=== PATIENT | female | born 1945 | race Caucasian/White ===

== ENCOUNTER 2016-05-13 05:18 | Inpatient (IN) | payer OTHER ==
[2016-04-21 08:18] VITALS: BMI 24.0
--- NOTE | 2016-04-21 08:48 | PAT Medication Instructions ---
Service Date Apr 21, 2016. Current Home Medication List Cholecalciferol (Vitamin D3), 1 TAB PO QAM Magnesium Oxide (Magnesium), Unknown Dose Meloxicam (Mobic), 15 MG PO QAM [Eye Promise], 1 CAP PO QAM Medication Instructions For Your Scheduled Surgery - Hold the following medications 7-10 days prior to surgery per surgeon's instructions: Meloxicam (Mobic), 15 MG PO QAM - Hold the following medications the morning of surgery: [Eye Promise], 1 CAP PO QAM Cholecalciferol (Vitamin D3), 1 TAB PO QAM Magnesium Oxide (Magnesium), Unknown Dose *Nothing to eat or drink after midnight* If you have any questions please call us at [phone] or [phone] or [phone]
--- NOTE | 2016-04-21 09:32 | DIAGNOSTIC IMAGING REPORT ---
CHEST PREADMISSION(PA/LAT) CLINICAL HISTORY: Preoperative evaluation. COMPARISON STUDY: No previous studies for comparison. FINDINGS: Lung volumes are normal. Lungs are clear. There is no pneumothorax or pleural effusion. Cardiac size is normal. Mediastinal contours are within normal limits. Pulmonary vascularity is normal. IMPRESSION: No acute cardiopulmonary findings. Electronically signed by: Jian Benitez M.D. 04/21/2016 9:30 AM Dictated Date/Time: 04/21/2016 9:29 AM
[2016-04-21 09:41] LABS: BASO % 0.9 %; BASO ABS # 0.05 K/uL (0-0.2); COMPLETE YES; EOS % 3.5 %; HEMATOCRIT 37.2 % (37-47); IG% 0.2 %; LYMPH % 24.4 %; LYMPH ABS # 1.33 K/uL (1.2-3.4); MEAN CELL VOLUME 84.4 fL (80-100); MEAN CORPUSCULAR HEMOGLOBIN 28.8 pg (25-34); MEAN CORPUSCULAR HGB CONC 34.1 g/dl (32-36); MEAN PLATELET VOLUME 8.7 fL (7.4-10.4); MONO % 7.5 %; NEUT % 63.5 %; PLATELET COUNT 281 K/uL (130-400); RED BLOOD COUNT 4.41 M/uL (4.2-5.4); WHITE BLOOD COUNT 5.45 K/uL (4.8-10.8)
[2016-04-21 09:45] LABS: PARTIAL THROMBOPLASTIN RATIO 0.9; PROTHROMBIN TIME (PATIENT) 10.3 SECONDS (9.0-12.0)
[2016-04-21 09:58] LABS: CALCIUM 8.9 mg/dl (8.5-10.1); CREATININE 0.56 mg/dl (0.60-1.20); POTASSIUM 4.2 mmol/L (3.5-5.1)
--- NOTE | 2016-05-07 09:53 | HISTORY & PHYSICAL EXAMINATION ---
DATE OF ADMISSION: 05/13/2016 CHIEF COMPLAINT: Right hip pain. HISTORY OF PRESENT ILLNESS: A 71-year-old female who has a several-year history of right hip pain and discomfort that has gotten significantly worse over the past 8 months. She describes groin pain with walking. It was pretty manageable until about 8 months ago when it got worse. She has been treated with Mobic which really did not help at all. The more she walks, the more she limps. She has had chiropractic treatments as well as therapy without relief. She would like to have her right hip fixed. Of note, the patient does have a history of chronic back pain but no radicular symptoms. PAST MEDICAL HISTORY: Significant for: 1. Colon cancer, status post resection without recurrence. 2. Spine arthritis. PAST SURGICAL HISTORY: 1. Hysterectomy. 2. Colon/rectum resection. 3. Cholecystectomy. ALLERGIES: SULFA. CURRENT MEDICATIONS: Include meloxicam. SOCIAL HISTORY: A 71-year-old female. Lives by herself. Medical doctor is Dr. Aurelia Solo at [facility]. Does not smoke. FAMILY HISTORY: Noncontributory. REVIEW OF SYSTEMS: Negative for diabetes, neurologic problems, vascular problems or bleeding disorders. No history of DVT or PE. PHYSICAL EXAMINATION: GENERAL: Reveals a healthy, pleasant elderly female. She looks to be in excellent health. HEENT: Benign. NECK: Supple. No lymphadenopathy. LUNGS: Clear to auscultation. HEART: Regular rate and rhythm. ABDOMEN: Soft, nontender, nondistended. EXTREMITIES: Grossly neurovascularly intact except as follows: Examination of the right hip and leg reveals the patient walks with a bit of a limp. Leg lengths clinically are pretty equal. She does have some stiffness with hip motion. She can internally rotate to neutral at best, it causes pain. External rotation 20 degrees. Negative straight leg raise. NEUROLOGIC: She is neurologically intact. X-RAYS: X-rays of the right hip reveal advanced right hip DJD. She had complete loss of her superior joint space. She has flattening of her femoral head. She has cystic change of femoral head and acetabulum. She has pretty advanced disease on her left side as well. ASSESSMENT: A 71-year-old female with a several-year history of bilateral hip pain and discomfort, right side quite a bit worse than left, unresponsive to conservative treatment. She has got advanced hip arthritis. She has got some underlying back problems as well, but I think her hip is probably the major contributing factor of her pain and disability. PLAN: We talked about treatment. She would like to have her hip replaced. We will take her to the operating room and do right total hip replacement. The risks and benefits of this procedure were explained to the patient including but not limited to DVT, PE, , infection, neurological injury, vascular injury, bleeding problem, pain, limited range of motion, stiffness, failure to relieve her symptoms, incomplete relief of symptoms, need for further surgery in the future, fracture, leg length inequality, nerve palsy, dislocation, etc. The patient understands and desires to proceed. Informed consent was obtained. The patient had preoperative workup. Chest x-ray showed no acute disease. EKG was normal. Labs are normal. As far as discharge plans, she is planning to be discharged to home and using [facility]. Her daughter is going to come and stay with her for at least the first week. She has stopped her Mobic 10 days preop.
[2016-05-13] VITALS (19 sets, daily range): BP systolic 107–162; BP diastolic 66–93; PULSE 73–102; TEMP 36.4–36.7; O2SAT 95–100; Ht 162.6 cm; Wt 65.4 kg
[~2016-05-13] VITALS: Ht 162.6 cm; Wt 65.4 kg
[~2016-05-13 05:18] MED LIST: CHOL1000 PO; EYE PROMISE PO; MAGN1TAB41; MELO7.5T5 PO
[2016-05-13] MEDS ORDERED: LACTATED RINGER'S 1000ML 500 ML IV ONE (06:00)
[2016-05-13] MEDS ORDERED: GABAPENTIN 300 MG CAP PO SCH (06:00)
[2016-05-13] MEDS ORDERED: LACTATED RINGER'S 1000ML IV SCH (06:00)
[2016-05-13] MEDS ORDERED: TRANEXAMIC ACID INJ 1,000 MG in SODIUM CHLORIDE 0.9% 100ML 100 ML IV SCH ×2 (06:00→14:30)
[2016-05-13] MEDS ORDERED: FAMOTIDINE 20 MG TAB PO SCH (06:00)
[2016-05-13] MEDS ORDERED: SCOPOLAMINE 1.5 MG TDSY TD SCH (06:00)
[2016-05-13] MEDS ORDERED: METOCLOPRAMIDE HCL 10 MG TAB PO SCH (06:00)
[2016-05-13] MEDS ORDERED: CEFAZOLIN 2000 MG/60 ML D5W 60 ML IV SCH (06:00)
[2016-05-13] MEDS ORDERED: LACTATED RINGER'S 1000ML 1,000 ML IV SCH (06:00)
[2016-05-13] MEDS ORDERED: BUPIVACAINE 0.5 % 5 MG/1 ML PF 10ML VIAL ONE (06:16)
[2016-05-13] MEDS ORDERED: BUPIVACAINE/EPINEPHRINE 0.5% MPF 1:200,000 30 ML VIAL ONE (06:26)
[2016-05-13] MEDS ORDERED: BACITRACIN 50000 UNIT VIAL ONE (06:27)
[2016-05-13] MEDS ORDERED: MIDAZOLAM HCL 1 MG/ML 2ML VIAL ONE ×2 (06:32→06:33)
[2016-05-13] MEDS ORDERED: FENTANYL CITRATE INJ 50 MCG/1 ML 2 ML VIAL ONE (06:33)
[2016-05-13] MEDS ORDERED: MoRPHine SULFATE PF 1 MG/ML 10 ML AMP/VIAL ONE (06:33)
--- NOTE | 2016-05-13 06:51 | History & Physical Bridge Note ---
H&P Re-Evaluation Bridge Note: I have examined the patient, reviewed the History & Physical and in the interval since the performance of the History & Physical I have noted the following changes of clinical significance: No changes noted
[2016-05-13] MEDS ORDERED: ONDANSETRON INJ 2 MG/ML 2 ML VIAL ONE (07:15)
[2016-05-13] MEDS ORDERED: PROPOFOL IV EMULSION 10 MG/ML 20 ML VIAL IV ONE (07:17)
[2016-05-13] MEDS ORDERED: LIDOCAINE HCL 2% 2 ML VIAL (20MG/ML) ONE (07:17)
[2016-05-13] MEDS ORDERED: NALOXONE HCL INJ 0.08 MG in SYRINGE 1.8 ML IV PRN (07:26)
[2016-05-13] MEDS ORDERED: NALOXONE HCL INJ 1 MG in SODIUM CHLORIDE 0.9% 1000ML 1,000 ML IV PRN (07:26)
[2016-05-13] MEDS ORDERED: LACTATED RINGER'S 1000ML 500 ML IV PRN (07:26)
[2016-05-13] MEDS ORDERED: SODIUM CHLORIDE 0.9% 1000ML 1,000 ML IV PRN (07:26)
[2016-05-13] MEDS ORDERED: LORAZEPAM 1 MG TAB PO PRN (07:30)
[2016-05-13] MEDS ORDERED: MoRPHine SULFATE PF 1 MG/ML 10 ML AMP/VIAL EPI PRN (07:30)
[2016-05-13] MEDS ORDERED: NO NARCOTICS OR SEDATIVES SCH (07:30)
[2016-05-13] MEDS ORDERED: ATROPINE SULFATE 0.1 MG/ML 5ML SYR IV PRN (07:30)
[2016-05-13] MEDS ORDERED: MoRPHine SULFATE 2 MG/ML CARP IV PRN (07:30)
[2016-05-13] MEDS ORDERED: ONDANSETRON INJ 2 MG/ML 2 ML VIAL IV PRN ×2 (07:30)
[2016-05-13] MEDS ORDERED: NALBUPHINE HCL INJ 10 MG/ML AMP IV PRN (07:30)
[2016-05-13] MEDS ORDERED: DiphenhydrAMINE HCL 50 MG/ML VIAL IV PRN ×2 (07:30)
[2016-05-13] MEDS ORDERED: PROMETHAZINE HCL INJ 6.25 MG in SODIUM CHLORIDE 0.9% 50ML 50 ML IV PRN (07:30)
[2016-05-13] MEDS ORDERED: MEPERIDINE HCL 25 MG/ML CARP IV PRN (07:30)
[2016-05-13] MEDS ORDERED: PROMETHAZINE HCL INJ 12.5 MG in SODIUM CHLORIDE 0.9% 50ML 50 ML IV PRN (07:30)
[2016-05-13] MEDS ORDERED: EpHEDrine SULFATE INJ 50 MG/ML AMP IV PRN ×2 (07:30)
[2016-05-13] MEDS ORDERED: KETOROLAC TROMETHAMINE 15 MG/ML VIAL IV. PRN (07:30)
[2016-05-13] MEDS ORDERED: LORAZEPAM INJ 0.5 MG in SYRINGE 0.75 ML IV PRN (07:30)
[2016-05-13] MEDS ORDERED: FENTANYL CITRATE INJ 50 MCG/1 ML 2 ML VIAL IV PRN (07:30)
[2016-05-13] MEDS ORDERED: NALOXONE HCL 0.4 MG/1 ML VIAL/CARP IV PRN (07:30)
[2016-05-13] MEDS ORDERED: PHENYLEPHRINE 100MCG/ML 5ML SYR ONE (08:09)
--- NOTE | 2016-05-13 08:24 | [facility] Post Operative Brief Note ---
Immediate Operative Summary Operative Date May 13, 2016. Pre-Operative Diagnosis Right Hip Advanced Degenerative Joint Disease Post-Operative Diagnosis Right Hip Advanced Degenerative Joint Disease Procedure(s) Performed Right Total Hip Arthroplasty--Uncemented Surgeon Dr. Briggs Human Resources Temp Surgeon(s) BIBIANA Fowler Estimated Blood Loss 200 cc Findings Right Hip DJD Fluids (cc crystalloids) 1700 cc Specimens A. Right Femoral Head Drains None Anesthesia Spinal Complication(s) None Disposition Recovery Room / PACU
[2016-05-13] MEDS ORDERED: MAGNESIUM HYDROXIDE SUSP 30 ML UDC PO PRN (08:30)
[2016-05-13] MEDS ORDERED: BISACODYL 10 MG SUPP PR PRN (08:30)
[2016-05-13] MEDS ORDERED: ALUMINUM/MAGNESIUM/SIMETH (MAALOX MAX) 30 ML UDC PO PRN (08:30)
[2016-05-13] MEDS ORDERED: METOCLOPRAMIDE HCL INJ 5 MG/ML 2 ML VIAL IV PRN (08:30)
[2016-05-13] MEDS: PANTOprazole SOD 40 MG TAB PO SCH (09:00)
[2016-05-13] MEDS: MULTIVITAMIN TAB PO SCH (09:00)
[2016-05-13] MEDS ORDERED: EYE PROMISE PO SCH (09:00)
[2016-05-13] MEDS: CHOLECALCIFEROL 400 INTER.UNIT TAB PO SCH (09:00)
--- NOTE | 2016-05-13 09:15 | Anesthesiology Progress Note ---
Anesthesia Post Op Note Date & Time May 13, 2016 at 09:14 Vital Signs Pain Intensity: 0 Vital Signs Past 12 Hours Date Time Temp Pulse Resp B/P Pulse Ox O2 Delivery O2 Flow Rate FiO2 05/13/16 08:26 36.2 89 16 120/65 100 Mask 9 05/13/16 05:50 36.6 98 18 156/93 95 Room Air Notes Mental Status: alert / awake / arousable, participated in evaluation Pt Amnestic to Procedure: Yes Nausea / Vomiting: adequately controlled Pain: adequately controlled Airway Patency, RR, SpO2: stable & adequate BP & HR: stable & adequate Hydration State: stable & adequate Neuraxial Anesthesia: was administered, sensory block is resolving Anesthetic Complications: no major complications apparent
--- NOTE | 2016-05-13 09:27 | DIAGNOSTIC IMAGING REPORT ---
AP PELVIS AND RIGHT HIP 2 VIEWS CLINICAL HISTORY: Degenerative arthritis COMPARISON STUDY: No previous studies for comparison. FINDINGS: There are postsurgical changes of a total right hip arthroplasty. The femoral acetabular components appear well seated. Overlying skin jagjit are visualized. There is no dislocation. There are no fractures. There is air within the soft tissues consistent with recent surgery. There are mild to moderate osteoarthritic changes involve the left hip. IMPRESSION: Postsurgical changes of a total right hip arthroplasty. Electronically signed by: Geovani Payne M.D. 05/13/2016 9:26 AM Dictated Date/Time: 05/13/2016 9:15 AM
[2016-05-13] MEDS: D5W AND 1/2NSS + 20MEQ KCL 1,000 ML IV SCH ×3 (11:12→21:50)
[2016-05-13] MEDS: KETOROLAC TROMETHAMINE 15 MG/ML VIAL IV. SCH ×3 (11:31→23:53)
[2016-05-13] MEDS: FERROUS GLUCONATE 324 MG TAB PO SCH ×3 (12:30→18:05)
[2016-05-13] MEDS: ACETAMINOPHEN 500 MG TAB PO SCH ×2 (12:57→20:29)
[2016-05-13] MEDS: CEFAZOLIN IV 1,000 MG in DEXTROSE 5% 50ML 50 ML IV SCH ×2 (14:07→21:48)
--- NOTE | 2016-05-13 14:27 | PROGRESS NOTE ---
DATE: 05/13/2016 DATE: 05/13/2016. SUBJECTIVE: A 71-year-old white female postop from a right total hip replacement. She is doing pretty well. When she came back to the floor she was very nauseated. She got some nausea medicine and it did not work so she was then given some Phenergan. She is now sleeping. As per the family, the patient is moving both lower extremities. She is pretty sedated currently but breathing comfortable OBJECTIVE: VITAL SIGNS: Temperature 36.4. Vital signs stable. PHYSICAL EXAMINATION: GENERAL: Reveals a pleasant elderly female. She is sitting up in bed and just snoring. Barely arousable. LUNGS: Clear to auscultation. HEART: Regular rate and rhythm. ABDOMEN: Soft, nontender, nondistended. EXTREMITY EXAMINATION: Grossly intact. NEUROLOGICAL EXAMINATION: Deferred due to her sleeping. Leg lengths are equal. She has got brisk refill in her toes. X-RAYS: X-rays of the right hip from recovery room were reviewed. She has right uncemented total hip replacement. Components looked to be in good position. No signs of problems. ASSESSMENT: Postop from a right total hip replacement, doing pretty well. She was quite nauseated, but doing much better now, but now sedated and sleeping since she has been given Phenergan. Her hip is located. PLAN: 1. DVT prophylaxis including thigh high TEDs, SCDs, and aspirin twice a day. 2. PT/OT. Weightbearing as tolerated. Right total hip protocol. 3. Pain control. Pain is currently under control and will limit narcotics at this point due to her sedation. 4. Sedation. We are going to hold all medicines until she wakes up more. 5. Antibiotics x24 hours of IV antibiotics. 6. Disposition: Plan to discharge to home with some home health once adequately recovered.
--- NOTE | 2016-05-13 16:12 | OPERATIVE REPORT ---
DATE OF OPERATION: 05/13/2016 SURGEON: Dr. Renny Briggs. RN SANE: BIBIANA Conway. PREOPERATIVE DIAGNOSIS: Right hip degenerative joint disease. POSTOPERATIVE DIAGNOSIS: Same. PROCEDURE PERFORMED: Right uncemented total hip arthroplasty. COMPLICATIONS: None. ESTIMATED BLOOD LOSS: 200 mL. FLUID REPLACEMENT: 1700 mL crystalloid fluid replacement. ANESTHESIA: Spinal. DRAINS: None. SPECIMENS: Right femoral head sent for pathology. OPERATIVE INDICATIONS: The patient is a 71-year-old female who has had a long history of right hip pain and discomfort. It has gotten significantly worse over the past 6-8 months. It has become more and more debilitated by this. X-rays show advanced right hip DJD. The patient elects to proceed with a total hip arthroplasty. OPERATIVE FINDINGS: Operative findings revealed advanced right hip DJD. She had grade 4 [id number] disease of the femoral head and acetabulum. She had pretty significant osteophytes around the femoral head and femoral neck area as well as the acetabulum. Moderate size joint effusion. Some moderate synovitis. She had multiple cysts, particularly in the acetabulum. OPERATIVE IMPLANTS: Operative implants consisted of: 1. A Biomet G7 size 52-mm acetabular shell. 2. A 6.5 cancellous acetabular screws, 1 at 35 mm length and 1 at 20 mm in length. 3. An apex hole eliminator. 4. Highly cross-linked polyethylene liner with a 52 mm outer diameter and 32 mm inner diameter with a pedroza placed inferior and posterior. 5. DePuy size 13.5 small stature femoral stem. 6. A +5/32 mm metal articular ball. OPERATIVE PROCEDURE: The patient taken to the operating room, identified and placed on the operating table in supine position. All contact areas were appropriately padded. IV antibiotics were provided by anesthesia team. A lateral anesthetic had been implemented in the holding area. Ahumada catheter was placed in sterile fashion. The patient was then placed in the left lateral decubitus position. An axillary roll was placed. Stulberg hip positioner was used for positioning. The right hip and leg were then prepped and draped in usual sterile fashion. A posterolateral approach to the right hip was then performed through a curvilinear incision centered over the greater trochanter. Sharp dissection was carried out through the subcutaneous tissues down to the level of the IT band and gluteal fascia. The IT band and gluteal fascia were then incised longitudinally in line with the skin incision. The underlying greater trochanteric bursa was excised. The piriformis and external rotators were tagged and taken off the posterior aspect of the femur. Great care was taken throughout the procedure to protect the sciatic nerve at all times. Posterior capsulotomy was then performed leaving a large flap for later repair. Hip was internally rotated and dislocated. Femoral neck osteotomy cut was made with the final cut 10 mm above the lesser trochanter. Femoral head was removed and sent for pathology. The femur was retracted anteriorly. Attention was then drawn to the acetabulum. The acetabular labrum was excised. The pulvinar fat was excised. Sequential reaming of the acetabulum was then performed beginning with a size 45 and progressing up to 51. Several cysts in the acetabulum were curetted and filled with bone graft from the reamings. A 52-mm Biomet G7 acetabular shell was then placed in about 40 degrees of lateral opening and 20 degrees of anteversion. It was fixed with two 6.5 cancellous acetabular screws. An anterior osteophyte was removed. A trial liner was placed. Attention was then drawn to the femur. The proximal femur was entered with a cookie cutter followed by canal finder and lateralizing reamer. Sequential reaming of the femur was then performed beginning with a size 9 and progressing up to a 13. We got good chatter at a 13. I then broached beginning with a size 10.5 small broach and progressing up to a 13.5 small broach. We had good metaphyseal fit. Calcar reamer was used to smoothen off the calcar. The hip was then trialed and the +5/32 mm articular ball provided full stability and full extension and external rotation, flexion to 90 degrees, internal rotation to about [address] a pedroza very inferior and posterior to maximize stability in flexion. Attention was then drawn toward placing the permanent components. All trial components were removed. An apex hole eliminator was placed. A highly cross-linked polyethylene liner was placed. The pedroza was placed inferior and posterior. A 13.5 small stature AML femoral stem was placed. We got excellent scratch fit. A +5/32 mm metal articular ball was placed. The hip was then located and once again found to be stable. Attention was then drawn toward closing. The wound was irrigated with copious amounts of pulsatile lavage solution. I did inject locally with 60 mL of 0.5% Marcaine with epinephrine. The posterior capsule and external rotators were repaired through drill holes in the posterior trochanter with #2 Ti-Cron suture. The IT band and gluteal fascia were then closed with #1 PDS suture in running fashion. The subcutaneous tissues were then closed with 2 layers with the deep layer #1 Vicryl sutures, subcutaneous tissue with 2-0 Dexon suture in a buried interrupted fashion. The skin was closed with skin jagjit. The leg was then cleaned and dried and a sterile dressing of Xeroform, 4 x 4, sterile ABD pad and foam tape was applied. The patient then transferred to the recovery room in stable condition. The patient tolerated the procedure well with no complications. All needle and sponge counts were correct at the end of the operation. I attest to the content of the Intraoperative Record and any orders documented therein. Any exceptions are noted below. LOCOD
[2016-05-13] MEDS: CHECK SCOPOLAMINE PATCH PLACEMENT SCH ×2 (16:17→23:53)
[2016-05-13] MEDS: ASPIRIN 325 MG ECTAB PO SCH (20:29)
[2016-05-13] MEDS: DOCUSATE SODIUM 100 MG CAP PO SCH (20:30)
[2016-05-14] VITALS (15 sets, daily range): BP systolic 101–138; BP diastolic 66–72; PULSE 71–107; TEMP 36.9–37.4; O2SAT 91–100
[2016-05-14] MEDS: ACETAMINOPHEN 500 MG TAB PO SCH ×3 (03:24→20:52)
[2016-05-14 05:56] LABS: BASO % 0.2 %; BASO ABS # 0.02 K/uL (0-0.2); COMPLETE YES; EOS % 0.9 %; HEMATOCRIT 32.2 % (37-47); IG% 0.1 %; LYMPH ABS # 0.92 K/uL (1.2-3.4); MEAN CELL VOLUME 86.1 fL (80-100); MEAN CORPUSCULAR HEMOGLOBIN 29.1 pg (25-34); MEAN CORPUSCULAR HGB CONC 33.9 g/dl (32-36); MEAN PLATELET VOLUME 8.8 fL (7.4-10.4); MONO % 10.4 %; NEUT % 79.4 %; PLATELET COUNT 212 K/uL (130-400); RED BLOOD COUNT 3.74 M/uL (4.2-5.4); WHITE BLOOD COUNT 10.25 K/uL (4.8-10.8)
[2016-05-14] MEDS: KETOROLAC TROMETHAMINE 15 MG/ML VIAL IV. SCH ×4 (05:57→23:29)
[2016-05-14] MEDS ORDERED: TRANEXAMIC ACID INJ 1,000 MG in SODIUM CHLORIDE 0.9% 100ML 100 ML IV ONE (06:00)
[2016-05-14 06:21] LABS: BUN/CREATININE RATIO 17.9 (10-20); CALCIUM 7.8 mg/dl (8.5-10.1); CREATININE 0.56 mg/dl (0.60-1.20); POTASSIUM 3.5 mmol/L (3.5-5.1)
[2016-05-14] MEDS ORDERED: DC INTRASPINAL MORPHINE SCH (07:00)
[2016-05-14] MEDS ORDERED: DiphenhydrAMINE HCL 50 MG/ML VIAL IV PRN (07:01)
[2016-05-14] MEDS ORDERED: ONDANSETRON INJ 2 MG/ML 2 ML VIAL IV PRN (07:01)
[2016-05-14] MEDS ORDERED: ZOLPIDEM TARTRATE 5 MG TAB PO PRN (07:01)
[2016-05-14] MEDS ORDERED: MoRPHine SULFATE 2 MG/ML CARP IV PRN (07:01)
[2016-05-14] MEDS ORDERED: TRAMADOL HCL 50 MG TAB PO PRN (07:01)
[2016-05-14] MEDS: CHECK SCOPOLAMINE PATCH PLACEMENT SCH ×3 (07:53→23:29)
[2016-05-14] MEDS: FERROUS GLUCONATE 324 MG TAB PO SCH ×3 (08:30→17:36)
[2016-05-14] MEDS ORDERED: PROM25TA9 PO (08:34)
[2016-05-14] MEDS ORDERED: ASPEC325 PO (08:34)
[2016-05-14] MEDS ORDERED: FRRG PO (08:34)
[2016-05-14] MEDS ORDERED: ULT50X PO (08:34)
[2016-05-14] MEDS ORDERED: ACET-1138 PO (08:34)
--- NOTE | 2016-05-14 08:35 | Discharge Instructions ---
Discharge Instructions Date of Service May 14, 2016. Admission Reason for Admission: Right Hip Pain, Degenerative Joint Disease Discharge Discharge Diagnosis / Problem: Right Hip Replacement Discharge Goals Goal(s): Decrease discomfort, Improve function, Increase independence, Improve disease control, Therapeutic intervention Activity Recommendations Activity Limitations: per Instructions/Follow-up section (Total Hip Precautions ) Weightbearing Status: Right weightbearing . Instructions / Follow-Up Instructions / Follow-Up ACTIVITY RECOMMENDATIONS: Physical Therapy: * Aggressive physical therapy is not usually needed. You will learn to take care of yourself safely and walk. * Follow the "Hip Precautions Instructions." * In some cases, the social work job titles at the hospital will arrange to have a therapist come to your house for the first couple of weeks to help you learn these skills. * You need to practice on your own or with the help of a family member as needed. * When you learn these skills, most of the therapy can be done on your own. Home Exercise: * You were shown a series of exercises in the hospital. Do these exercises three to four times each day including the exercises you were shown in physical therapy. Walking: * Get up and walk several times each day. For the first four weeks, try not to stand or walk for more than one hour at a time. If you do stand or walk for more than one hour, you will not hurt anything, but your leg will likely swell. * As you feel comfortable, you may change from the walker or crutches to a cane and then to independent walking. MEDICATIONS: New Medicine: * You will likely be taking one or more of these medicines: 1. Oxycodone - Take, as directed, when you need it, every four to six hours to control your pain. 2. Iron Sulfate - Take three times each day for the month after surgery to help you replace the blood lost during surgery. 3. Aspirin - Thins your blood to lessen the chance of forming a blood clot. * The most common side effects of pain medicine and iron are nausea and constipation. If nausea or constipation is too much of a problem or if you have any questions about your new medicines or doses, call [facility] at . We will try to help you manage these issues. VERY IMPORTANT TO READ AND REVIEW" Pain: * The immediate post-operative period after hip replacement surgery is often quite painful. * You are given a prescription for pain medicine. You should take it, as directed, when you need it, especially before physical therapy and before going to bed. Pain that interferes with sleep is very common and can last several months. * You will likely need pain medicine for the first two to four weeks. It will not stop all of the pain. The pain will lessen and as you feel better, you may change to milder pain medicine such as Tylenol. * The most common side effects of pain medicine are nausea and constipation, so don't take more than you need. SPECIAL CARE INSTRUCTIONS: TEDs/Elastic Stockings: * The white elastic stockings help limit swelling and prevent blood clots from forming in your legs. The more you wear them, the more they work. * Wear them for six weeks. Prevention of Infection: * Take antibiotics one hour before any dental cleaning, dental work, urological procedure, gastrointestinal procedure or any invasive surgery in order to prevent your new joint from getting infected. * You may get the antibiotics from the doctor performing the procedure or you may call our office at before and we will call in a prescription to the pharmacy of your choice. Things to Watch For: * Drainage from the incision site that occurs more than one week after your surgery. * Severely increased leg pain or swelling. * Increased redness at the incision site. * Fever above 102 degrees Fahrenheit. * Unusual chest pain or shortness of breath. * Unusual pain or burning with urination. Call [facility] at with any of the above problems or if you have any questions about your medicines or recovery. FOLLOW UP VISIT: Make an appointment to see your doctor for approximately two weeks after surgery for a progress check and staple removal by calling the office at . Current Hospital Diet Patient's current hospital diet: Regular Diet Discharge Diet Recommended Diet: Regular Diet Procedures Procedures Performed: Right Total Hip Arthroplasty--Uncemented Pending Studies Studies pending at discharge: no Medical Emergencies . Who to Call and When: Medical Emergencies: If at any time you feel your situation is an emergency, please call [phone] immediately. . Non-Emergent Contact Non-Emergency issues call your: Surgeon . "Provider Documentation" section prepared by Renny Briggs. VTE Core Measure Inpt VTE Proph given/why not?: Other Anticoagulation, T.E.D. Stockings, SCD's
--- NOTE | 2016-05-14 08:35 | Anesthesiology Progress Note ---
Anesthesia Post Op Note Date & Time May 14, 2016 at 08:35 Vital Signs Pain Intensity: 0.0 Vital Signs Past 12 Hours Date Time Temp Pulse Resp B/P Pulse Ox O2 Delivery O2 Flow Rate FiO2 05/14/16 07:59 36.9 71 20 101/66 91 Room Air 05/14/16 07:45 92 Room Air 05/14/16 07:02 16 97 05/14/16 06:00 16 96 05/14/16 04:59 16 98 05/14/16 04:01 18 100 05/14/16 03:30 36.9 73 16 118/71 100 Nasal Cannula 2.0 05/14/16 02:55 18 100 05/14/16 01:56 16 100 05/14/16 00:58 16 98 05/14/16 00:01 Nasal Cannula 2.0 05/14/16 00:01 16 99 05/13/16 23:40 36.6 73 18 107/66 100 Nasal Cannula 3.0 05/13/16 23:00 16 99 05/13/16 23:00 16 98 Nasal Cannula 2.0 05/13/16 22:00 16 99 Nasal Cannula 2.0 05/13/16 21:00 18 98 Nasal Cannula 2.0 Notes Mental Status: alert / awake / arousable, participated in evaluation Pt Amnestic to Procedure: Yes Nausea / Vomiting: adequately controlled Pain: adequately controlled Airway Patency, RR, SpO2: stable & adequate BP & HR: stable & adequate Hydration State: stable & adequate Neuraxial Anesthesia: sensory block resolved Anesthetic Complications: no major complications apparent
[2016-05-14] MEDS: MULTIVITAMIN TAB PO SCH (08:42)
[2016-05-14] MEDS: ASPIRIN 325 MG ECTAB PO SCH ×2 (08:42→20:53)
[2016-05-14] MEDS: CHOLECALCIFEROL 400 INTER.UNIT TAB PO SCH (08:42)
[2016-05-14] MEDS: PANTOprazole SOD 40 MG TAB PO SCH (08:42)
[2016-05-14] MEDS: DOCUSATE SODIUM 100 MG CAP PO SCH ×2 (08:42→20:53)
--- NOTE | 2016-05-14 12:19 | PROGRESS NOTE ---
DATE: 05/14/2016 SUBJECTIVE: 71-year-old female postop day 1 from right total hip replacement. She is doing well. The nausea has improved. She has no pain when she is sitting, just when walking. No chest pain or shortness of breath. Not feeling dizzy or lightheaded. OBJECTIVE: VITAL SIGNS: Temperature 36.9. Vital signs stable. PHYSICAL EXAMINATION: GENERAL: Reveals a healthy, pleasant middle-aged female. She is sitting up in her bedside chair and looks comfortable. LUNGS: Clear to auscultation. HEART: Regular rate and rhythm. ABDOMEN: Soft, nontender, nondistended. EXTREMITIES: Grossly neurovascularly intact except as follows. Examination of the right hip and leg reveals the dressing to be clean, dry and intact. Hip is located. Leg lengths are equal. She can dorsiflex and plantarflex her foot appropriately. She is neurologically intact. LABORATORY DATA: Hemoglobin 10.9, hematocrit 32.2. Electrolytes are stable. ASSESSMENT: 71-year-old female postop day 1 from right total hip replacement, doing well. Her nausea has resolved. Her pain is controlled reasonably well. PLAN: 1. DVT prophylaxis including thigh-high TEDs, SCDs, and aspirin twice a day. 2. PT/OT. Weightbearing as tolerated. Right total hip protocol. 3. Pain control. Doing well with current pain regimen. 4. Disposition: She is planning to be discharged to home with some home health once adequately recovered. Her daughter is going to stay with her.
[2016-05-15] MEDS: KETOROLAC TROMETHAMINE 15 MG/ML VIAL IV. SCH (04:58)
[2016-05-15] MEDS: ACETAMINOPHEN 500 MG TAB PO SCH (04:58)
[2016-05-15 06:23] VITALS: BP 145/77; PULSE 91; TEMP 37.1; O2SAT 92
--- NOTE | 2016-05-15 07:37 | PROGRESS NOTE ---
DATE: 05/15/2016 DATE: 05/15/2016. SUBJECTIVE: A 71-year-old female postop day 2 from right total hip replacement. She is doing well. Nausea is resolved. No chest pain or shortness of breath. Pain is improved. OBJECTIVE: VITAL SIGNS: Temperature 37.1. Vital signs stable. PHYSICAL EXAMINATION: GENERAL: Reveals a healthy, pleasant, middle-aged male. He is sitting up in her bed eating breakfast and looks comfortable. LUNGS: Clear to auscultation. HEART: Has regular rate and rhythm. ABDOMEN: Soft, nontender, nondistended. EXTREMITY EXAMINATION: Grossly neurovascularly intact except as follows: Examination of the right hip and leg reveals the leg to be well aligned. Hip is located. Leg lengths were equal. The wounds clean, dry and intact. Thigh is soft and supple. No significant drainage. Neurologically intact. ASSESSMENT: A 71-year-old female postop day 2 from right total hip replacement, doing well. Pain is controlled. Hip is located. She is neurologically intact. PLAN: 1. DVT prophylaxis including thigh-high TEDs, SCDs, and aspirin twice a day. 2. PT/OT. Weightbearing as tolerated. Right total hip protocol. 3. Pain control. Doing well with current pain regimen. Nausea is resolved. 4. Disposition: Plan to discharge to home with some home health later today.
[2016-05-15] MEDS: DOCUSATE SODIUM 100 MG CAP PO SCH (07:49)
[2016-05-15] MEDS: FERROUS GLUCONATE 324 MG TAB PO SCH (07:49)
[2016-05-15] MEDS: ASPIRIN 325 MG ECTAB PO SCH (07:50)
[2016-05-15] MEDS: PANTOprazole SOD 40 MG TAB PO SCH (07:51)
[2016-05-15] MEDS: MULTIVITAMIN TAB PO SCH (07:51)
[2016-05-15] MEDS: CHOLECALCIFEROL 400 INTER.UNIT TAB PO SCH (07:51)
[2016-05-15 09:46] VITALS: BP 145/77; PULSE 91; TEMP 37.1; O2SAT 92
--- NOTE | 2016-05-21 15:53 | DISCHARGE SUMMARY ---
ADMITTING PHYSICIAN AND SURGEON: Dr. Briggs. ADMITTING DIAGNOSIS: Right hip degenerative joint disease. SURGERY PERFORMED: Right total hip arthroplasty. SECONDARY DIAGNOSES: Include colon cancer and spinal arthritis. CONSULTS: None obtained. HISTORY AND PHYSICAL EXAMINATION: Well documented in the patient's chart. HOSPITAL COURSE: The patient was admitted on 05/13/2016 and underwent total hip arthroplasty. She tolerated the procedure well. There were no complications. She was transferred to the PACU postoperatively and later to the orthopedic floor for further care. She was given Ancef for antibiotic prophylaxis and GLO stockings, SCDs and aspirin for DVT prophylaxis. Hemoglobin, hematocrit and vital signs were monitored during her hospital stay and remained stable. She developed some mild postoperative anemia, did not require any blood transfusions. There were no complications. By postoperative day #2, she was tolerating a general diet, pain was controlled with oral pain medicine. She was participating in physical therapy and had no signs or symptoms of deep vein thrombosis. On postop day #2, she was discharged home and set up with home health services. She was given printed discharge instructions including new prescriptions for extra strength Tylenol, aspirin 325 mg b.i.d., iron supplement, Phenergan and tramadol. She will continue her home medications, continue physical therapy, weightbearing as tolerated, GLO stockings, total hip precautions and follow up in 10-12 days or sooner if there are problems or concerns.
== END 2016-05-15 10:44 | disposition home health service (06) | DRG 470 ==
LOC: ENRESERVDT → ENRESERVTM → C.ACU 05:18 → C.3E 06:40
PROVIDERS: ADMIT Orthopaedic Surgery Sports Medicine; ATTEND Orthopaedic Surgery Sports Medicine
PROC: 0SR902A Replacement of Right Hip Joint with Metal on Polyethylene Synthetic Substitute, Uncemented, Open Approach (ICD-10-PCS; principal; 2016-05-13 07:00)
DX: M16.0 Bilateral primary osteoarthritis of hip (principal); M25.451 Effusion, right hip; M65.9 Synovitis and tenosynovitis, unspecified; R11.0 Nausea; G89.29 Other chronic pain; M54.9 Dorsalgia, unspecified; M46.90 Unspecified inflammatory spondylopathy, site unspecified; Z79.1 Long term (current) use of non-steroidal anti-inflammatories (NSAID); Z79.899 Other long term (current) drug therapy

== ENCOUNTER → 2017-03-06 | Outpatient (CLI) | payer OTHER ==
[~2017-03-06] MED LIST changes: +ACET-1138 PO; +ASPEC325 PO; +FRRG PO; +ULT50X PO
--- NOTE | 2017-03-10 13:37 | MAMMOGRAPHY REPORT ---
BILATERAL DIGITAL SCREENING MAMMOGRAM WITH CAD: 03/06/2017 CLINICAL HISTORY: Routine screening. Patient has no complaints. TECHNIQUE: Current study was also evaluated with a Computer Aided Detection (CAD) system. Bilateral CC and MLO views were obtained. COMPARISON: Comparison is made to exams dated: 02/21/2014 mammogram, 12/06/2012 mammogram, and 012 mammogram - [facility]. BREAST COMPOSITION: There are scattered areas of fibroglandular density in both breasts. FINDINGS: No suspicious masses, calcifications, or areas of architectural distortion are noted in ei ther breast. There has been no significant interval change compared to prior exams. Scattered bilater al benign-appearing calcifications are not significantly changed. IMPRESSION: ACR BI-RADS CATEGORY 2: BENIGN There is no mammographic evidence of malignancy. A 1 year screening mammogram is recommended. The pa tient will receive written notification of the results. Approximately 10% of breast cancers are not detected with mammography. A negative mammographic report should not delay biopsy if a clinically suggestive mass is present. Briana Elena M.D. ah/:03/06/2017 16:10:53 Manager Trading: Shea Moise RT(R)(M), [facility] letter sent: Normal 1/2 BI-RADS Code: ACR BI-RADS Category 2: Benign
== END | disposition home or self-care (01) ==
LOC: C.MAMM 15:09
PROVIDERS: ATTEND Family Medicine
DX: Z12.31 Encounter for screening mammogram for malignant neoplasm of breast (principal)

== ENCOUNTER 2023-08-18 06:43 | Observation (INO) ==
--- NOTE | 2023-07-14 16:13 | PAT Medication Instructions ---
Medication Instructions Date of Service July 14, 2023 Home Medications alendronate 70 mg tablet (Fosamax) 70 mg PO WK amoxicillin 500 mg tablet 2,000 mg PO UD PRN ergocalciferol (vitamin D2) 50,000 unit tablet 50,000 unit PO WK magnesium 1 tab PO QAM meloxicam 15 mg tablet 15 mg PO QAM pqybfwcy-lal-ysdoef 5 mg-zeaxanth 1 mg-bilberry 7.5 mg-herbal capsule (Macular Health Formula) 1 cap PO QAM Continue as directed amoxicillin 500 mg tablet 2,000 mg PO UD PRN(if needed) ASK your surgeon for instructions meloxicam 15 mg tablet 15 mg PO QAM STOP taking 2 weeks before surgery (or as soon as possible if surgery is within 2 weeks) ejbrgszf-gbh-hsyxlc 5 mg-zeaxanth 1 mg-bilberry 7.5 mg-herbal capsule (Macular Health Formula) 1 cap PO QAM DO NOT take the morning of surgery alendronate 70 mg tablet (Fosamax) 70 mg PO WK ergocalciferol (vitamin D2) 50,000 unit tablet 50,000 unit PO WK magnesium 1 tab PO QAM Other Notes NOTHING TO EAT OR DRINK AFTER MIDNIGHT. If you have any questions please call us at [phone] or [phone] or [phone] or [phone]
--- NOTE | 2023-07-27 12:21 | Anesthesiology Consultation ---
Date of Service July 27, 2023 Assessment & Plan (1) Encounter for pre-operative examination: Chart Review Chart Review: Acceptable Risk for Surgery and Patient seen in Pre Admission Testing PONV - significant- even with 2017 TSH done under [facility] - Patient is NOT an ideal OPJ candidate (currently 23 hour obs) Per PAT appt on 07/27/23, no recent illness/disease exposures, illness related symptoms, or recent illness/disease positive tests. Will leave to surgeon's discretion if preop Covid testing needed Right HOPE 05/13/16= Done under [facility] at L3-4 with 1 attempt Teaching & Discussion Pre-Anesthesia Teaching/Discussion Notes: Instructed NPO after midnight before surgery,except medications with 15 cc of water. Medication instructions provided according to the PAT guidelines. History Surgery Operation Date: 08/18/23 10:55 Proposed Procedures p Left Total Hip Arthroplasty - Renny Briggs MD Height/Weight Height: 5 ft 5 in Weight: 58.4 kg Allergies Allergy/AdvReac Type Severity Reaction Status Date / Time Sulfa (Sulfonamide Allergy Intermediate HIVES Verified 07/10/23 09:32 Antibiotics) Medications Home Medications Medication Instructions Recorded Confirmed Last Taken alendronate 70 mg tablet (Fosamax) 70 mg PO WK 07/10/23 07/10/23 Unknown amoxicillin 500 mg tablet 2,000 mg PO UD PRN prior to dental 07/10/23 07/10/23 Unknown procedures ergocalciferol (vitamin D2) 50,000 50,000 unit PO WK 07/10/23 07/10/23 Unknown unit tablet magnesium 1 tab PO QAM 07/10/23 07/10/23 Unknown meloxicam 15 mg tablet 15 mg PO QAM 07/10/23 07/10/23 Unknown cogpoljl-xsr-oemwpg 5 mg-zeaxanth 1 cap PO QAM 07/10/23 07/10/23 Unknown 1 mg-bilberry 7.5 mg-herbal capsule (Macular Health Formula) Past Medical History Medical History History of colorectal cancer diagnosed 1997--s/p partial colon resection, chemo/radiation History of COVID-2020--mild symptoms, no symptoms now History of postoperative nausea and vomiting Osteoarthritis Bilateral knees, left hip Exercise / Class Metabolic Activity III < 4 Walking/Shop/Light housework (one flight of stairs- minimal SOB, no chest pain ) Past Family History Family History Other No family history of adverse response to anesthesia Past Surgical History Surgical History History of benign breast biopsy History of bilateral cataract extraction History of cholecystectomy History of colon resection 1997 History of colonoscopy History of tooth extraction all teeth removed History of total hysterectomy with bilateral salpingo-oophorectomy (BSO) History of total right hip replacement Past Anesthesia History No Hx of Anesthesia Complications (with exception to PONV ) and No Family Hx of Anesthesia Complications History of PONV No Hx of Motion Sickness and History of PONV ( significant- had PONV even with most recent surgery right HOPE (2017) ) Social History Smoking Status: Never smoker Do You Dip or Chew Tobacco: No Hx Alcohol Use: Yes Alcohol type: wine alcohol intake frequency: a few times a month Hx Substance Use: No substance use type: does not use Review of Systems Patient denies chest pain, shortness of breath, dyspnea on exertion, reflux, cough, wheezing, palpitations. No hx of seizures, stroke, [place], apnea/snoring. No hx of blood clots or blood transfusions Physical Exam Vital Signs VITALS BP 154/76 P 77 TEMP 98.0 SP02 96% RESP 16 Constitutional no acute distress ENMT Mouth: + small oral opening; no TMJ clicking Thyromental Distance: < 3.5 Finger Breadths (3.0) Mallampati Class: III Full dentures on top and bottom Neck + limited neck extension (mild) Respiratory normal respiratory effort; no respiratory distress Auscultation: lungs clear to auscultation bilaterally; no wheezes Cardiovascular Rate/Rhythm: regular rate and regular rhythm Heart Sounds: no murmur Vessels: no carotid bruit Musculoskeletal Spine: no pain with cervical ROM Extremities: extremities normal to inspection Psychiatric Orientation: alert Lab Results Anesthesia Preop Results Results Anesthesia Widget: WBC 6.84 K/ul (4.8-10.8) 07/27/23 Hgb 13.0 g/dl (12.0-16.0) 07/27/23 Hct 40.0 % (37.0-47.0) 07/27/23 Plt 301 K/uL (130-400) 07/27/23 Na 140 mmol/L (136-145) 07/27/23 K 5.1 mmol/L (3.5-5.1) 07/27/23 Cl 103 mmol/L (98-107) 07/27/23 CO2 30 mmol/L (21-32) 07/27/23 BUN 28 mg/dl (6-23) H 07/27/23 Creat 0.57 mg/dl (0.6-1.2) L 07/27/23 Glucose Level 133 mg/dl (70-99(Fasting)) H 07/27/23 PT 10.4 Seconds (9.0-12.0) 07/27/23 PTT 24 Seconds (21-31) 07/27/23 INR 1.0 (0.9-1.1) 07/27/23 Blood Type B Positive 07/27/23 Antibody Screen NEGATIVE 07/27/23 Testing Electrocardiogram Date: 07/27/23 Findings: + NSR @ (70bpm) Normal EKG per cardio Chest X-Ray Date: 07/27/23 Findings: + NAD and + cardiomegaly FINDINGS: No lines and tubes are seen. Cardiomegaly is noted. The aortic arch is calcified. The lungs are clear. No evidence of pleural effusion or pneumothorax. IMPRESSION: No acute chest disease. Cardiomegaly is noted.
--- NOTE | 2023-08-14 17:43 | History & Physical Report ---
Date of Service August 14, 2023 Assessment & Plan (1) Arthritis of left hip: 78-year-old female with advanced left hip as well as bilateral knee arthritis limiting her activities. Tempora response to injection. She like to proceed with definitive treatment. Discussed treatment options. Based on her x-rays her exam and all findings I think we best to start by fixing her left hip has got severe disease there and sometimes by fixing that we can help her knee problems. In addition, it is easier to to treat the knees conservatively. After extensive discussion regarding proceed with a left hip replacement. The risks Mente this procedure explained the patient include but not limited to DVT PE infection neurological and vascular bleeding palm pain limb range of motion sepsis fairly her symptoms excetra. Patient understands and desires to proceed. Informed consent was obtained. She is planned to be discharged home using [facility]. We will plan on DVT prophylaxis including thigh-high teds, SCDs, aspirin twice a day. (2) Degenerative arthritis of knee, bilateral: History of Present Illness Chief Complaint: . Left hip pain and bilateral knee pain. Primary Care Provider: Aurelia Solo DO . Patient is an 78-year-old female who is quite active who presents for referral treatment of her multiple orthopedic joint pains. She is status post a right total hip replacement done in 2017. She has done well from this. Over the past several years she has developed pain discomfort in both knees as well as her left hip buttock and groin area. She been followed by Dr. Mcgregor with injections and medical management. This become less successful over time. Describes knee pain left hip pain and limited walking ability. She is a preferred definitive treatment. Allergies Allergy/AdvReac Type Severity Reaction Status Date / Time Sulfa (Sulfonamide Allergy Intermediate HIVES Verified 07/10/23 09:32 Antibiotics) Home Medications Medication Instructions Recorded Confirmed Type alendronate 70 mg tablet (Fosamax) 70 mg PO WK 07/10/23 07/10/23 History amoxicillin 500 mg tablet 2,000 mg PO UD PRN prior to dental 07/10/23 07/10/23 History procedures ergocalciferol (vitamin D2) 50,000 50,000 unit PO WK 07/10/23 07/10/23 History unit tablet magnesium 1 tab PO QAM 07/10/23 07/10/23 History meloxicam 15 mg tablet 15 mg PO QAM 07/10/23 07/10/23 History ipcvvsbt-ldc-vkaxyl 5 mg-zeaxanth 1 cap PO QAM 07/10/23 07/10/23 History 1 mg-bilberry 7.5 mg-herbal capsule (Macular Health Formula) Wheeled Walker #1 ea 08/11/23 Rx Past Med/Surg History Problem List Encounter for pre-operative examination Degenerative arthritis of knee, bilateral Arthritis of left hip Medical History Osteoarthritis Bilateral knees, left hip History of colorectal cancer diagnosed 1997--s/p partial colon resection, chemo/radiation History of COVID-2020--mild symptoms, no symptoms now History of postoperative nausea and vomiting Surgical History History of benign breast biopsy History of total hysterectomy with bilateral salpingo-oophorectomy (BSO) History of total right hip replacement History of colonoscopy History of cholecystectomy History of colon resection 1997 History of tooth extraction all teeth removed History of bilateral cataract extraction Family History Other No family history of adverse response to anesthesia Social History Smoking Status: Never smoker Second Hand Exposure: No; Do You Dip or Chew Tobacco: No; Hx Alcohol Use: Yes Alcohol type: wine Hx Substance Use: No Preferred Language: Frisian Communication Ability: Effective 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 Physical Exam . Physical examination Gila is a pleasant elderly female. Looks to be in good health. Examination of the lower extremities Rilla patient who ambulates with a bit of a limp on the left side pees about a centimeter shorter on the left side compared to the right. Examination left hip reveals pain and limited motion. She can internally rotate to about 5 to 10 degrees. This recreates pain. Negative straight leg raise. She is neurologically intact. Examination both knees reveal slight varus alignment to her knees. 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 Range of motion is pretty symmetric with 5-1 25. Constitutional WD/WN, vitals as above Neck trachea midline, no thyromegaly Respiratory normal respiratory effort, lungs clear to auscultation Cardiovascular RRR, no murmur, no edema Gastrointestinal (Abdomen) normal bowel sounds, soft, nontender, no hepatosplenomegaly Results & Data Results & Data Laboratory Results . Diagnostic Findings . X-rays of the left hip were reviewed. She has advanced left hip arthritis. She got bipa-bo-lzla disease with flattening of the femoral head and cystic changes on both sides of the joint. Examination both knees reveal advanced medial compartment arthritis in both knees. Got hatn-wq-pqfd disease. PG Care Time/CCT Total # of Minutes Spent Total Time Spent with Patient: Total time spent is greater than 50% in coordination of care (as documented) at patient's floor/unit and/or counseling patient: Coding Level of Care Code None Diagnoses Arthritis of left hip M16.12 Degenerative arthritis of knee, bilateral M17.0
[~2023-08-18 06:43] MED LIST changes: -ACET-1138 PO; -ASPEC325 PO; +BUPIVACAINE 0.5 % 5 MG/1 ML PF 10ML VIAL ONE; -CHOL1000 PO; -EYE PROMISE PO; -FRRG PO; -MAGN1TAB41; -MELO7.5T5 PO; -ULT50X PO
--- NOTE | 2023-08-18 06:46 | History & Physical Bridge Note ---
Date of Service August 18, 2023 History & Physical Bridge Note I have examined the patient, reviewed the History & Physical and in the interval since the performance of the History & Physical I have noted the following changes of clinical significance: no changes noted
[2023-08-18] MEDS: LR 500ML BOLUS, THEN 15ML/HR IV SCH (07:34)
[2023-08-18] MEDS: LR 60ML/HR IV SCH (07:35)
[2023-08-18] MEDS: ACETAMINOPHEN 500 MG TAB PO SCH ×2 (07:36→13:00)
[2023-08-18] MEDS: CeleBREX 200 MG CAP PO SCH (07:36)
[2023-08-18] MEDS: METOCLOPRAMIDE HCL 10 MG TABLET PO SCH (07:37)
[2023-08-18] MEDS: dexAMETHasone**PF** 10 MG/ML VIAL IV SCH (07:37)
[2023-08-18] MEDS: FAMOTIDINE 20 MG TAB PO SCH (07:37)
[2023-08-18] MEDS ORDERED: fentaNYL citrate PF 100 MCG/2 ML VIAL ONE (07:44)
[2023-08-18] MEDS ORDERED: MIDAZOLAM HCL 1 MG/ML 2ML VIAL ONE (07:44)
[2023-08-18] MEDS ORDERED: DexMEDEtomidine HCL IV 100 MCG/ML VIAL IV ONE (08:05)
[2023-08-18] MEDS: TRANEXAMIC ACID 1,000 MG **IV Pre-op IV SCH (08:28)
[2023-08-18] MEDS: BUPIVACAINE/EPINEPHRINE 0.5% MPF 1:200,000 30 ML VIAL ONE (09:11)
[2023-08-18] MEDS: ceFAZolin 2000MG 2,000 MG/15 ML SYR IV SCH (09:11)
[2023-08-18] MEDS ORDERED: PHENYLEPHRINE 100MCG/ML 10ML SYR IV ONE (10:51)
--- NOTE | 2023-08-18 10:51 | Operative Report ---
PG Post Operative Report Pre & Post Diagnosis Operation Date: 08/18/23 08:50 Pre-Op Diagnosis: Left Hip Degenerative Joint Disease Post-Op Diagnosis: Left Hip Degenerative Joint Disease I identified the patient and participated in the time-out.: Yes Procedure Operation Date: 08/18/23 08:50 Actual Procedures p Left Total Hip Arthroplasty, Cemented(Left) - Renny Briggs MD Surgeon Renny Briggs MD Stripe Matcher Ramirez Sotelo PA-C Estimated Blood Loss 150 Findings Consistent with Post-Op Diagnosis Operative findings revealed advanced left hip arthritis. 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 She had a very deficient posterior wall to the acetabulum. Specimens Left femoral head sent for pathology. Anesthesia Type Spinal MAC Complications none Disposition Accompanied Patient To Recovery: No Indications Patient is an 78-year-old female who said a long history of multiple orthopedic joint issues in the past. She has had a right hip replacement in the past. She developed progressive pain discomfort in the left hip as well as both knees. She been treated conservative became less successful over time. The left hip got significantly worse over the past several months. She elected proceed with total hip arthroplasty. Description of Procedure Operative implants consist of: 1. Biomet G7 ostial Tiede size 58 acetabular shell. 2. 6.5 cancellous acetabular screws 1 at 35 mm length, 1 of 25 mm length, and 2 of 20 mm in length. 3. [place] hole awning assembler. 4. Highly cross-linked polyethylene liner with a 58 mm outer diameter and 40 mm inner diameter. 5. DePuy [place] size 3 high offset cemented femoral stem. 6. +8.5/40 mm metal articular ball. The patient was taken to the operating, identified, placed on the operating table in the supine position. All contact areas were appropriately padded. IV antibiotics tried by anesthesia team. Spinal anesthetic and been implemented holding area. Ahumada catheter was placed in sterile fashion. The patient was then placed in the right lateral decubitus position. A school Birkett position was used for positioning. An axillary roll was placed. The left hip and leg were then prepped and draped in usual sterile fashion. A posterolateral approach to the left hip was then performed to a curvilinear incision centered over the greater trochanter. Sharp dissection carried through subcutaneous tissue down to level the IT band gluteal fascia. The IT band gluteal fascia were incised longitudinally in line with skin incision. The underlying greater bursa was excised. Piriformis and external rotators were taken off the posterior aspect of the hip joint capsule along with the hip capsule as a single layer. Great care was taken throughout the procedure prot ect the sciatic nerve at all times. Hip was internally rotated and dislocated. Femoral neck osteotomy cut was made with a Final Cut about a centimeter above the lesser trochanter. Femoral head was removed and sent for pathology. The femur was retracted anteriorly. Attention drawn the acetabulum. The acetabular labrum was excised. The pulmonary fat was excised. Then reamed the acetabulum again with a size 45 and progressing up to 53. We reamed a little with a 54 reamer and then tried to place a 54 cup. I was unable to get an interference fit. The posterior wall seem fairly deficient and I could not get a good anterior/posterior fit. We then reamed up further and try to 56 are also unsuccessful. I got an ostial Tiede cut out as well and was still not able to get adequate fixation. I reamed up to a 58 and still had difficulty getting the anterior posterior stability without reaming too far medially. We did just select a 58 mm ostial Tiede cut. I fixed it provisionally and then fixed it with a four 6.5 cancellous screws. We got good purchase with 3 out of the 4 screws an average purchase with the L4 screw. It provided good fixation and snugged the cup down to the acetabulum. The trial liner was placed. Attention drawn the femur. The proximal femur was entered with a [employer] cutter followed by canal finder. I broached up to a size 11. We then trialed the hip and the hip was fully stable and I was able to lengthen her slightly. However the broach was still little bit loose. I then started to broach with a 12 and felt it was too tight and I could not approach just a whole way down without concerns of fracture. Therefore we elect to place a cemented stem. I then broached beginning that was sized to and then a 3 [place] broach. We then trialed the hip and the +8.5 articular ball seem to recreate leg length and soft tissue tension appropriately. She was quite short on this leg preoperative about a centimeter and I did want to lengthen her some. We elect to place these implants. Nupathe all trial implants were removed. In order to optimize stability we placed a 40 mm liner. I was not able to quite get as much introversion in the cup as I would have liked. The femoral canal was then irrigated extensively. A cement restrictor was placed distally. A double batch [place] G cement was mixed. Then injected the canal with the cement and placed a 3 high offset femoral stem. We did trial the hip and the +8.5 head seem to recreate length the leg and soft tissue appropriately. We appeared fully stable in full extension and external rotation flexion to 90 degrees internal rotation over [address]. We elect to place his implants. Did not seem excessively tight. Leg lengths seem equal. The trial head was removed and a permanent 8.5/40 mm metal articular ball was placed. Hip was located and stable. Attention drawn toward closing. The wounds irrigated coconuts pulsatile lavage solution. I did inject locally with 50 cc of half percent Marcaine with epinephrine. Posterior capsule and external rotators were then repaired through drill holes in the posterior trochanter with #2 Tycron suture. The IT band gluteal fascia then closed with #1 PDS suture in a running fashion with subcutaneous tissue then closed with 2 layers the deep layer #1 Vicryl suture in the subcutaneous tissue with 2-0 Dexon suture in a buried interrupted fashion the skin was closed with skin jagjit. Leg was then cleaned and dried and sterile dressed with Xeroform, 4 fours, ABD pad and foam tape was applied. Patient then transferred to the recovery room in stable condition. Patient tolerated procedure well and there were no complications. Ramirez Sotelo, my physician hospital aides and assistants teacher, was present for the entire procedure. His assistance was essential and required for appropriate patient positioning, prepping and draping, surgical exposure, performing the technical details of the operation, placement the implants, closure of the wound, and placement of the sterile bandage. I attest to the content of the Intraoperative Record and any orders documented therein. Any exceptions are noted below.
--- NOTE | 2023-08-18 11:14 | Anesthesiology Progress Note ---
Date of Service August 18, 2023 Anesthesia Post Procedure Vital Signs Vital Signs: Temp Pulse Resp BP Pulse Ox O2 Del Method O2 Flow Rate 08/18/23 10:55 83 20 111/64 99 Oxymask 9 08/18/23 10:46 36.2 C L 78 17 104/56 L 98 Oxymask 9 08/18/23 07:16 36.8 C 114 H 20 162/99 H 94 Room Air Notes Mental Status: alert / awake / arousable Patient Amnestic to Procedure: Yes Nausea / Vomiting: adequately controlled Pain: adequately controlled Airway Patency, RR, SpO2: stable & adequate BP & HR: stable & adequate Hydration State: stable & adequate Neuraxial Anesthesia: was administered and sensory block is resolving Anesthetic Complications: no major complications apparent
--- NOTE | 2023-08-18 11:14 | XRay Report ---
XR hip 1V LT w pelvis CLINICAL HISTORY: IN PACU - Post Surgical TECHNIQUE: 1 view of the left hip and single frontal view of the pelvis were obtained. Comparison: Comparison is made to hip radiographs 05/13/2016 FINDINGS: Patient is status post total left hip arthroplasty with expected postsurgical changes including soft tissue swelling and subcutaneous emphysema. Old right hip arthroplasty is unchanged. IMPRESSION: Expected postoperative appearance status post placement of total hip arthroplasty. ACT 112: Negative or not required by law. Electronically signed by: Sp Brady M.D. 08/18/2023 11:13 AM
[2023-08-18] MEDS: ROPIV 0.5% 246mg, Ketorolac 30mg, EPINEPHrine 0.5mg in NSS INFIL SCH (11:27)
[2023-08-18] MEDS: SODIUM CHLORIDE 0.9% 1,000 ML IV SCH (11:45)
[2023-08-18] MEDS ORDERED: bisacodyL 10 MG SUPP PR PRN (11:56)
[2023-08-18] MEDS ORDERED: MAGNESIUM HYDROXIDE SUSP 30 ML UDC PO PRN (11:56)
[2023-08-18] MEDS ORDERED: ALUMINUM/MAGNESIUM SUSP 30 ML UDC PO PRN (11:56)
[2023-08-18] MEDS ORDERED: HYDROmorphone INJ 0.5 MG/0.5 ML SYR IV PRN (11:56)
[2023-08-18] MEDS ORDERED: NALOXONE HCL 0.4 MG/1 ML VIAL/CARP IV PRN (11:56)
[2023-08-18] MEDS ORDERED: METOCLOPRAMIDE HCL INJ 5 MG/ML 2 ML VIAL IV PRN (11:56)
[2023-08-18] MEDS ORDERED: traMADol HCL 50 MG TABLET PO PRN (11:56)
[2023-08-18] MEDS: KETOROLAC TROMETHAMINE 15 MG/ML VIAL IV SCH (13:00)
[2023-08-18] MEDS ORDERED: ACETAMINOPHEN 500 MG TAB PO SCH (14:00)
[2023-08-18] MEDS: TRANEXAMIC ACID / 0.7% NACL 1,000 MG/100 ML BAG IV SCH (17:01)
[2023-08-18] MEDS: ASCORBIC ACID 500 MG TAB PO SCH (17:02)
[2023-08-18] MEDS: ceFAZolin 1000MG 1,000 MG/7.5 ML SYR IV SCH (17:02)
[2023-08-18] MEDS: SENNA 8.6 MG TAB PO SCH ×2 (20:26)
[2023-08-18] MEDS: DOCUSATE SODIUM 100 MG CAP PO SCH (20:27)
[2023-08-18] MEDS: ASPIRIN 81 MG ECTAB PO SCH (20:28)
[2023-08-19] MEDS: PNEUMOCOCCAL VACCINE (PCV20) 20-VAL CONJ-DIP CRM/PF 0.5 ML SYR IM ONE (06:09)
[2023-08-19 06:36] LABS: Basophils # (auto) 0.02 K/uL (0.00-0.20); Basophils % (auto) 0.2 %; Eosinophils # (auto) 0.01 K/uL (0.00-0.50); Eosinophils % (auto) 0.1 %; Hematocrit (blood only) 32.2 % (37.0-47.0); Immature Granulocytes # (auto) 0.04 K/uL (0.01-0.20); Immature Granulocytes % (auto) 0.3 %; Lymphocytes # (auto) 1.44 K/uL (1.20-3.40); Lymphocytes % (auto) 12.3 %; Mean Corpuscular Hemoglobin 29.4 pg (25.0-34.0); Mean Corpuscular Hgb Conc 34.2 g/dL (32.0-36.0); Mean Corpuscular Volume 86.1 fL (80.0-100.0); Mean Platelet Volume 8.9 fL (9.4-12.4); Monocytes # (auto) 1.01 K/uL (0.11-0.59); Monocytes % (auto) 8.6 %; Neutrophils # (auto) 9.22 K/uL (1.40-6.50); Neutrophils % (auto) 78.5 %; Platelet Count 325 K/uL (130-400); RDW Coefficient of Variation 11.8 % (11.5-14.5); RDW Standard Deviation 36.9 fL (36.4-46.3); Red Blood Count 3.74 M/uL (4.20-5.40); White Blood Count 11.74 K/ul (4.8-10.8)
[2023-08-19 06:39] LABS: Calcium 8.7 mg/dl (8.6-10.3); Creatinine Clr Calc Pharmacy 75.8 ml/min; Est GFR (African American) 103.9 ml/min; Est GFR (Non-African American) 89.7 ml/min; Potassium 3.7 mmol/L (3.5-5.1)
[2023-08-19] MEDS: dexAMETHasone 10 MG in SYRINGE 0 ML IV SCH (08:45)
[2023-08-19] MEDS: MAGNESIUM OXIDE 400 MG TAB PO SCH (08:45)
[2023-08-19] MEDS: CEROVITE ADV FORMULA TAB PO SCH (08:45)
[2023-08-19] MEDS ORDERED: MULTIVITAMIN TAB PO SCH (09:00)
[2023-08-19] MEDS: ONDANSETRON INJ 2 MG/ML 2 ML VIAL IV PRN (10:01)
--- NOTE | 2023-08-19 10:57 | Orthopedic Progress Note ---
Date of Service August 19, 2023 Assessment & Plan (1) Osteoarthritis: (2) S/P total left hip arthroplasty: Plan 78-year-old woman POD# 1 s/p left total hip replacement, doing well overall. Pain is relatively well-controlled. Medically stable. Prosthetic hip is located and postop radiographs are well-appearing. She is neurologically intact. Plan: 1. DVT prophylaxis w/ thigh-high TEDs, SCDs, ASA 81 mg BID. 2. PT/OT as tolerated. WBAT on L LE. Left posterolateral approach total hip precautions/protocol. 3. Pain control doing well with current pain regimen. 4. Disposition - plan to D/C home w/ home health care later today once cleared by PT/OT. 5. F/u as scheduled w/ first post-op visit. Admission and Anticipated Discharge Date Admission Date: August 18, 2023 Subjective Patient is POD# 1 s/p left total hip arthroplasty by Dr. Briggs on 08/18/2023. Patient says her pain is well-controlled this morning. Denies CP, SOB, N/V, L LE paresthesia. She has [facility] arranged to come to the house for therapy. Patient says that she will be ready to go home today. Physical Exam Physical Exam: GENERAL: AA&Ox3, NAD. Pleasant, affect is calm. Sitting in bed and appears comfortable. RESPIRATORY: Normal respiratory effort with no signs of distress. CHEST/AXILLA: Chest movement symmetrical. No deformities noted. CARDIOVASCULAR: No edema noted. SKIN: [place], warm and dry. MS/EXTREMITY: Hip dressing c/d/i. GLO hose donned to contralateral LE. Thigh is soft, supple. Leg lengths are equal. + ankle dorsi/plantarflexion. NVI distally. Calf soft/NT. PT/DP intact. Results & Data Vital Signs (Past 12 Hours) Vital Signs Temp Pulse Resp BP Pulse Ox O2 Del Method 08/19/23 08:04 36.5 C 79 16 126/79 95 Room Air 08/19/23 02:51 36.6 C 76 16 154/74 H 94 Room Air 08/18/23 23:00 36.8 C 79 18 155/81 H 94 Room Air Laboratory Results Laboratory Results - last 48 hr 08/19/23 05:52 WBC 11.74 H RBC 3.74 L Hgb 11.0 L Hct 32.2 L MCV 86.1 MCH 29.4 MCHC 34.2 RDW Std Deviation 36.9 RDW Coeff of Velasquez 11.8 Plt Count 325 MPV 8.9 L Immature Gran % (Auto) 0.3 Neut % (Auto) 78.5 Lymph % (Auto) 12.3 Rogers % (Auto) 8.6 Eos % (Auto) 0.1 Baso % (Auto) 0.2 Neut # (Auto) 9.22 H Lymph # (Auto) 1.44 Rogers # (Auto) 1.01 H Eos # (Auto) 0.01 Baso # (Auto) 0.02 Immature Gran # (Auto) 0.04 Sodium 139 Potassium 3.7 Chloride 104 Carbon Dioxide 29 Anion Gap 6 BUN 18 Creatinine 0.53 L Est Cr Clr Drug Dosing 75.8 Est GFR ( Amer) 103.9 Est GFR (Non-Af Amer) 89.7 BUN/Creatinine Ratio 34.0 H Glucose 126 H Calcium 8.7 Diagnostic Findings Hip/Pelvis X-Ray 08/18/23 10:50 XR hip 1V LT w pelvis CLINICAL HISTORY: IN PACU - Post Surgical TECHNIQUE: 1 view of the left hip and single frontal view of the pelvis were obtained. Comparison: Comparison is made to hip radiographs 05/13/2016 FINDINGS: Patient is status post total left hip arthroplasty with expected postsurgical changes including soft tissue swelling and subcutaneous emphysema. Old right hip arthroplasty is unchanged. IMPRESSION: Expected postoperative appearance status post placement of total hip arthroplasty. ACT 112: Negative or not required by law. Electronically signed by: Sp Brady M.D. 08/18/2023 11:13 AM
--- NOTE | 2023-08-19 10:58 | Discharge Summary ---
Date of Service August 19, 2023 Admission HPI Per Admitting Provider Chief Complaint: . Left hip pain and bilateral knee pain. Primary Care Provider: Aurelia Solo DO Patient is an 78-year-old female who is quite active who presents for referral treatment of her multiple orthopedic joint pains. She is status post a right total hip replacement done in 2017. She has done well from this. Over the past several years she has developed pain discomfort in both knees as well as her left hip buttock and groin area. She been followed by Dr. Mcgregor with injections and medical management. This become less successful over time. Describes knee pain left hip pain and limited walking ability. She is a preferred definitive treatment. (1) Arthritis of left hip: 78-year-old female with advanced left hip as well as bilateral knee arthritis limiting her activities. Tempora response to injection. She like to proceed with definitive treatment. Discussed treatment options. Based on her x-rays her exam and all findings I think we best to start by fixing her left hip has got severe disease there and sometimes by fixing that we can help her knee problems. In addition, it is easier to to treat the knees conservatively. After extensive discussion regarding proceed with a left hip replacement. The risks Mente this procedure explained the patient include but not limited to DVT PE infection neurological and vascular bleeding palm pain limb range of motion sepsis fairly her symptoms excetra. Patient understands and desires to proceed. Informed consent was obtained. She is planned to be discharged home using [facility] home health program. We will plan on DVT prophylaxis including thigh-high teds, SCDs, aspirin twice a day. Admission Exam Per Admitting Provider Physical examination Ekta is a pleasant elderly female. Looks to be in good health. Examination of the lower extremities Rilla patient who ambulates with a bit of a limp on the left side pees about a centimeter shorter on the left side compared to the right. Examination left hip reveals pain and limited motion. She can internally rotate to about 5 to 10 degrees. This recreates pain. Negative straight leg raise. She is neurologically intact. Examination both knees reveal slight varus alignment to her knees. 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 Range of motion is pretty symmetric with 5-1 25. Constitutional WD/WN, vitals as above Neck trachea midline, no thyromegaly Respiratory normal respiratory effort, lungs clear to auscultation Cardiovascular RRR, no murmur, no edema Gastrointestinal (Abdomen) normal bowel sounds, soft, nontender, no hepatosplenomegaly Diagnostic Findings . X-rays of the left hip were reviewed. She has advanced left hip arthritis. She got [id number] disease with flattening of the femoral head and cystic changes on both sides of the joint. Examination both knees reveal advanced medial compartment arthritis in both knees. Got [id number] disease. Principal Diagnosis Same as "Discharge Diagnosis" noted below under Discharge Instructions. Discharge Exam GENERAL: AA&Ox3, NAD. Pleasant, affect is calm. Sitting in bed and appears comfortable. RESPIRATORY: Normal respiratory effort with no signs of distress. CHEST/AXILLA: Chest movement symmetrical. No deformities noted. CARDIOVASCULAR: No edema noted. SKIN: [place], warm and dry. MS/EXTREMITY: Hip dressing c/d/i. GLO hose donned to contralateral LE. Thigh is soft, supple. Leg lengths are equal. + ankle dorsi/plantarflexion. NVI distally. Calf soft/NT. PT/DP intact. Discharge Data Allergies Allergy/AdvReac Type Severity Reaction Status Date / Time Sulfa (Sulfonamide Allergy Intermediate HIVES Verified 08/18/23 07:13 Antibiotics) Procedures Performed Operation Date: 08/18/23 08:50 Actual Procedures p Left Total Hip Arthroplasty, Cemented(Left) - Renny Briggs MD Ordered Studies Hip/Pelvis X-Ray 08/18/23 10:50 XR hip 1V LT w pelvis CLINICAL HISTORY: IN PACU - Post Surgical TECHNIQUE: 1 view of the left hip and single frontal view of the pelvis were obtained. Comparison: Comparison is made to hip radiographs 05/13/2016 FINDINGS: Patient is status post total left hip arthroplasty with expected postsurgical changes including soft tissue swelling and subcutaneous emphysema. Old right hip arthroplasty is unchanged. IMPRESSION: Expected postoperative appearance status post placement of total hip arthroplasty. ACT 112: Negative or not required by law. Electronically signed by: Sp Brady M.D. 08/18/2023 11:13 AM Hospital Course (1) Osteoarthritis: (2) S/P total left hip arthroplasty: On August 18, 2023 Ekta arrived at [facility] operating room and underwent a left total hip replacement without complications. Patient had a spinal anesthetic for the procedure. Postoperatively, patient was transferred to the general orthopedic floor in stable condition and eventually started onto aspirin 81 mg twice daily for DVT prophylaxis as appropriate. Patient's ho spital course was uneventful. On postoperative day #1, patient's vital signs were stable and pain was well-controlled. Patient was able to participate well with physical therapy, safely performing the necessary ambulation and range of motion exercises, as well as demonstrating ADL tasks. Patient was then discharged home in stable condition, with home health care services to begin. Patient will follow-up with orthopedics in 2 to 3 weeks for postoperative care. Plan 78-year-old woman POD# 1 s/p left total hip replacement, doing well overall. Pain is relatively well-controlled. Medically stable. Prosthetic hip is located and postop radiographs are well-appearing. She is neurologically intact. Plan: 1. DVT prophylaxis w/ thigh-high TEDs, SCDs, ASA 81 mg BID. 2. PT/OT as tolerated. WBAT on L LE. Left posterolateral approach total hip precautions/protocol. 3. Pain control doing well with current pain regimen. 4. Disposition - plan to D/C home w/ home health care later today once cleared by PT/OT. 5. F/u as scheduled w/ first post-op visit. Total Time Total Time Spent Total Time Spent (In Minutes): Total Time Spent with Patient: Total time spent is greater than 50% in coordination of care (as documented) at patient's floor/unit and/or counseling patient: Discharge Plan Discharge Items Patient Disposition: Home - Home Health Services Reason For Visit: Left Hip Degenerative Joint Disease Discharge Diagnosis: Left Hip Replacement Activity: Per Instructions section Activity Comment: Follow/Obey Hip Precuations at all times. Weightbearing: Full weightbearing Weightbearing Comment: Weightbear as tolerated obeying hp precautions at all times. Non-emergency contact: Surgeon Call non-emergency contact if: you have any medication questions, your wound has increased redness and your wound has increased drainage Follow-up/Referrals: Aurelia Solo DO [Primary Care Provider] - Diet: Regular Addtl Attending Provider Instructions: ACTIVITY RECOMMENDATIONS: Physical Therapy: * Aggressive physical therapy is not usually needed. You will learn to take care of yourself safely and walk. * Follow the "Hip Precautions Instructions." * In some cases, the social media strategist at the hospital will arrange to have a therapist come to your house for the first couple of weeks to help you learn these skills. * You need to practice on your own or with the help of a family member as needed. * When you learn these skills, most of the therapy can be done on your own. Home Exercise: * You were shown a series of exercises in the hospital. Do these exercises three to four times each day including the exercises you were shown in physical t herapy. Walking: * Get up and walk several times each day. For the first four weeks, try not to stand or walk for more than one hour at a time. If you do stand or walk for more than one hour, you will not hurt anything, but your leg will likely swell. * As you feel comfortable, you may change from the walker or crutches to a cane and then to independent walking. MEDICATIONS: New Medicine: * You will likely be taking one or more of these medicines: 1. Tramadol - Take, as directed, when you need it, every six hours to control your pain. 2. Aspirin - Thins your blood to lessen the chance of forming a blood clot. * The most common side effects of pain medicine and iron are nausea and constipation. If nausea or constipation is too much of a problem or if you have any questions about your new medicines or doses, call [facility] at [phone]. We will try to help you manage these issues. "VERY IMPORTANT TO READ AND REVIEW" Pain: * The immediate post-operative period after hip replacement surgery is often quite painful. * You are given a prescription for pain medicine. You should take it, as directed, when you need it, especially before physical therapy and before going to bed. Pain that interferes with sleep is very common and can last several months. * You will likely need pain medicine for the first two to four weeks. It will not stop all of the pain. The pain will lessen and as you feel better, you may change to milder pain medicine such as Tylenol. * The most common side effects of pain medicine are nausea and constipation, so don't take more than you need. SPECIAL CARE INSTRUCTIONS: TEDs/Elastic Stockings: * The white elastic stockings help limit swelling and prevent blood clots from forming in your legs. The more you wear them, the more they work. * Wear them for six weeks. Incision Site Care: * Remove dressing postoperative day 2 and then shower. Keep direct shower pressure off the incision site. * After showering, cover jagjit with dry gauze and change daily or more frequently if the dressing is getting saturated with drainage. * May completely stop using bandage if wound is dry and no drainage * Jagjit are removed between 2 and 3 weeks post-op. If your follow-up appointment is made before 2 weeks, please have your appointment re- scheduled. It is too early to remove the jagjit. Prevention of Infection: * Take antibiotics one hour before any dental cleaning, dental work, urological procedure, gastrointestinal procedure or any invasive surgery in order to prevent your new joint from getting infected. * You may get the antibiotics from the doctor performing the procedure or you may call our office at before and we will call in a prescription to the pharmacy of your choice. Things to Watch For: * Drainage from the incision site that occurs more than one week after your surgery. * Severely increased leg pain or swelling. * Increased redness at the incision site. * Fever above 102 degrees Fahrenheit. * Unusual chest pain or shortness of breath. * Unusual pain or burning with urination. Call [facility] at with any of the above problems or if you have any questions about your medicines or recovery. FOLLOW UP VISIT: Make an appointment to see your doctor for approximately two weeks after surgery for a progress check and staple removal by calling the office at . Pending Studies at Discharge: No Stand-Alone Forms: My [facility], Pain - Opioid Pain Management, Smoking Cessation Medications and DC Order Prescriptions: Continued (DME) Wheeled Walker Misc See Rx Instructions .MEDSUPPLY Qty: 1 0RF Rx Instructions: As directed tramadol 50 mg tablet 50 - 100 mg PO Q8H PRN (Reason: pain) Qty: 40 0RF Patient Comments: post op Rx Instructions: Take as needed for pain ondansetron 4 mg tablet,disintegrating 4 mg PO Q8 PRN (Reason: nausea) Qty: 20 1RF Patient Comments: post op Rx Instructions: Take as needed for nausea ketorolac 10 mg tablet 10 mg PO Q8H 5 Days Qty: 15 0RF Patient Comments: post op Rx Instructions: Take 3 times per day with food for 5 days to lessen pain and swelling. sennosides [Senokot] 8.6 mg tablet 8.6 mg PO BID 14 Days Qty: 28 0RF Patient Comments: post op Rx Instructions: Take two times a day to prevent/treat constipation acetaminophen [Tylenol Extra Strength] 500 mg tablet 1,000 mg PO TID 30 Days Qty: 180 0RF Patient Comments: post op Rx Instructions: Take 3 times per day to lessen pain aspirin [Amaris Low Dose Aspirin] 81 mg tablet,delayed release (DR/EC) 81 mg PO BID 45 Days Qty: 90 0RF Patient Comments: post op Rx Instructions: Take to prevent blood clots. alendronate [Fosamax] 70 mg Tablet 70 mg PO WK Patient Comments: takes on sundays ergocalciferol (vitamin D2) 50,000 unit Tablet 50,000 unit PO WK Patient Comments: takes magnesium Tablet 1 tab PO QAM Macular Health Formula 5-1-7.5 mg Capsule 1 cap PO QAM amoxicillin 500 mg tablet 2,000 mg PO UD PRN (Reason: prior to dental procedures) Rx Instructions: TAKE 4 TABLETS ONE HOUR PRIOR TO DENTAL WORK Discontinued meloxicam 15 mg Tablet 15 mg PO QAM Krames/Other Patient Handouts: DVT Post Op Prevention, Hip Precautions Admission Data Admit Date/Time: 08/18/23 10:50 Attending Provider: Renny Briggs Admit Provider: Renny Briggs Primary Care Provider: Aurelia Solo Other Providers: [facility],Home Health Other Interventions: Discharge Summary Assessment (RN) Last Done: 08/19/23 07:17
[2023-08-20] MEDS ORDERED: ERGOCALCIFEROL 1250 MCG (50,000 UNITS) CAP PO SCH (09:00)
== END 2023-08-19 11:45 | disposition home health service (06) ==
LOC: 3E 06:43 → ASU 06:43

== ENCOUNTER 2023-08-29 15:14 | Inpatient (IN) ==
--- NOTE | 2023-08-29 16:11 | Emergency Department Note ---
Impression & Plan Abdominal pain, Duodenal ulcer disease, Leukocytosis ED Provider Note HISTORY OF PRESENT ILLNESS: Patient is an 78-year-old female presenting with abdominal pain. Patient reports that she had hip surgery 2 weeks ago. She reports that earlier this week, she started having constipation and abdominal cramping. Reports that she stopped her opioid pain medication 6 days ago, but symptoms have persisted. She took mag citrate 3 days ago and started taking MiraLAX twice daily, with no output from the rectum. Reports she has had some slight liquid stool, but has had persistent abdominal cramping and feeling bloated and distended. She reports an abdominal history of appendectomy and colon resection from a colon cancer. She reports nausea and dry heaving but no vomiting. Denies any fevers. Denies any dysuria or hematuria. She does report she is passed flatus. Denies any chest pain or shortness of breath ROS: as above PHYSICAL EXAM: Constitutional: Patient appears in no acute distress. HENT: Head: Normocephalic and atraumatic. Eyes: EOMI, PERRL Mouth/Throat: Mucous membranes moist. Neck: Trachea midline. Neck supple. Cardiovascular: RRR, No murmurs, rubs or gallops. Intact distal pulses. Pulmonary/Chest: No respiratory distress. Breath sounds clear and equal bilaterally. No wheezes or rales. Abdominal: Abdomen soft, no tenderness, rebound or guarding. Hyperactive bowel sounds Musculoskeletal: No edema, tenderness or deformity noted. Skin: Warm and dry. No rash, erythema, pallor or cyanosis Psychiatric: Appropriate mood and affect for situation. Neurological: Alert and keenly responsive. CN II-XII grossly intact, moving all extremities equally and fully. MDM: - Vitals signs stable - History obtained via patient. History as above. - Chronic conditions affecting care: osteoarthritis; colorectal cancer - Differential diagnoses include, but are not limited to: small bowel obstruction; ileus; cholecystitis; viral syndrome - Order placed for continuous cardiac monitoring. At this time, monitor showed rate of 86 bpm with normal sinus rhythm, per my interpretation. - External medical records reviewed. Discharge summary dated 08/19/2023 was reviewed. Patient had a a left hip total arthroplasty on 08/18/2023. - EKG interpreted by myself showed normal sinus rhythm. Rate 96 bpm. QT 348. No acute ischemic changes - Patient given 1L NS and 4 mg IV zofran for symptomatic management on arrival. - Laboratory workup interpreted by myself showed leukocytosis (WBC 13.22) with left shift; thrombocytosis (plt 527); slight hyponatremia (Na 130; normal lactate; slight hyperglycemia (glucose 124); normal troponin; normal lipase; normal liver function - UA negative for infection. Noted to have trace ketonuria - Viral respiratory panel negative - CT abdomen/pelvis with IV contrast showed wall thickening and edema to the distal stomach and proximal duodenum with surrounding inflammation concerning for a ulcer disease with contained perforation. Also noted to have a serpiginous fluid collection or tract which extends from the gastroduodenal junction anteriorly ventral peritoneum concerning for a fistula or abscess. - IV zosyn and 40 mg IV protonix ordered. - Discussed the case with the GI on-call, Dr. Ceballos, at 1943. He stated that it would be contraindicated to do an endoscopy or colonoscopy and a suspected perforation. Recommended surgical input or transfer. - Discussed case with general surgeon on-call, Dr. Knott. He recommended obtaining a CT scan with oral contrast. He states that there is no active extravasation of contrast, patient will need an endoscopy. He states that if it is a fistulous tract, the patient would need transferred. - CT abdomen/pelvis with PO contrast showed wall thickening and indistinctness of the medial wall of the first and second portion of the duodenum suspicious for duodenal ulcer disease, less likely neoplasm or duodenitis. No contrast extravasation is seen to indicate perforation. No fistulous tract is identified - Again discussed CT results with Dr. Ceballos at 22:34. He agrees that patient can be continued on IV antibiotics and protonix and consult GI in AM. - Discussion was had with child welfare caseworker about patient's case and need for admission - Hospitalist consulted for admission - Patient admitted to [facility]ist service for further evaluation and management. 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, bilateral Medical History Osteoarthritis Bilateral knees, left hip History of colorectal cancer diagnosed 1997--s/p partial colon resection, chemo/radiation History of COVID-2020--mild symptoms, no symptoms now History of postoperative nausea and vomiting Surgical History History of benign breast biopsy History of total hysterectomy with bilateral salpingo-oophorectomy (BSO) History of total right hip replacement History of colonoscopy History of cholecystectomy History of colon resection 1997 History of tooth extraction all teeth removed History of bilateral cataract extraction Family History Other No family history of adverse response to anesthesia Social History Smoking Status: Never smoker Second Hand Exposure: No; Do You Dip or Chew Tobacco: No; Hx Alcohol Use: Yes Alcohol type: wine Hx Substance Use: No Preferred Language: Bahraini Communication Ability: Effective Construction Supervisor Required: No Beliefs That Will Affect Care: None Current Living Situation: Alone Feels Safe at Home: Yes Assistive Devices: Walker Allergies Allergies Allergy/AdvReac Type Severity Reaction Status Date / Time Sulfa (Sulfonamide Allergy Intermediate HIVES Verified 08/18/23 07:13 Antibiotics) Home Meds Home Medications Medication Instructions Recorded Confirmed alendronate 70 mg tablet (Fosamax) 70 mg PO WK 07/10/23 08/29/23 amoxicillin 500 mg tablet 2,000 mg PO UD PRN prior to dental 07/10/23 08/29/23 procedures ergocalciferol (vitamin D2) 50,000 50,000 unit PO WK 07/10/23 08/29/23 unit tablet magnesium 1 tab PO QAM 07/10/23 08/29/23 [id number] 5 mg-zeaxanth 1 cap PO QAM 07/10/23 08/29/23 1 mg-bilberry 7.5 mg-herbal capsule (Macular Health Formula) Previous Rx's Medication Instructions Recorded Lavern Britton #1 ea 08/11/23 acetaminophen 500 mg tablet 1,000 mg (2 x 500 mg) PO TID pain 08/16/23 (Tylenol Extra Strength) 30 days #180 tabs aspirin 81 mg tablet,delayed 81 mg PO BID 45 days #90 tabs 08/16/23 release (Amaris Low Dose Aspirin) ondansetron 4 mg disintegrating 4 mg PO Q8 PRN nausea #20 tabs 08/16/23 tablet sennosides 8.6 mg tablet (Senokot) 8.6 mg PO BID prevent constipation 08/16/23 14 days #28 tabs Results & Data (ED) Vital Signs Vital Signs - 24 hr 08/29/23 15:35 08/29/23 16:05 08/29/23 16:06 Temperature 36.8 C Temperature Source Temporal Artery Scan Pulse Rate 112 H 87 Pulse Rate from SpO2 Sensor 88 Respiratory Rate 18 19 Respiratory Effort / Characteristics Non-Labored Respiratory Depth Normal Blood Pressure 112/75 Blood Pressure Mean 87 Pulse Oximetry 96 96 98 Oxygen Delivery Method Room Air Room Air Sepsis Recent Fever Within 48 Hours No Sepsis New/Unexplained Change in Mental Status No Sepsis Action Taken by Nursing No Action Required 08/29/23 16:07 08/29/23 16:24 08/29/23 16:33 Temperature Temperature Source Pulse Rate 86 83 84 Pulse Rate from SpO2 Sensor 84 83 Respiratory Rate 15 13 Respiratory Effort / Characteristics Respiratory Depth Blood Pressure 137/79 Blood Pressure Mean 98 Pulse Oximetry 96 96 Oxygen Delivery Method Sepsis Recent Fever Within 48 Hours Sepsis New/Unexplained Change in Mental Status Sepsis Action Taken by Nursing 08/29/23 17:09 08/29/23 17:51 08/29/23 18:03 Temperature Temperature Source Pulse Rate 76 79 81 Pulse Rate from SpO2 Sensor 76 80 81 Respiratory Rate 17 16 18 Respiratory Effort / Characteristics Respiratory Depth Blood Pressure Blood Pressure Mean Pulse Oximetry 99 97 98 Oxygen Delivery Method Sepsis Recent Fever Within 48 Hours Sepsis New/Unexplained Change in Mental Status Sepsis Action Taken by Nursing 08/29/23 18:42 08/29/23 19:09 08/29/23 19:30 Temperature Temperature Source Pulse Rate 79 80 Pulse Rate from SpO2 Sensor 79 81 Respiratory Rate 19 15 Respiratory Effort / Characteristics Respiratory Depth Blood Pressure 143/76 H 133/72 Blood Pressure Mean 98 107 Pulse Oximetry 92 95 Oxygen Delivery Method Sepsis Recent Fever Within 48 Hours Sepsis New/Unexplained Change in Mental Status Sepsis Action Taken by Nursing 08/29/23 19:30 08/29/23 20:06 08/29/23 20:09 Temperature Temperature Source Pulse Rate 82 98 H 96 H Pulse Rate from SpO2 Sensor 82 96 H Respiratory Rate 18 19 Respiratory Effort / Characteristics Respiratory Depth Blood Pressure Blood Pressure Mean Pulse Oximetry 97 96 Oxygen Delivery Method Sepsis Recent Fever Within 48 Hours Sepsis New/Unexplained Change in Mental Status Sepsis Action Taken by Nursing 08/29/23 20:30 08/29/23 21:15 08/29/23 21:30 Temperature Temperature Source Pulse Rate 90 Pulse Rate from SpO2 Sensor 91 H 101 H 94 H Respiratory Rate 14 Respiratory Effort / Characteristics Respiratory Depth Blood Pressure 174/91 H Blood Pressure Mean 118 Pulse Oximetry 97 99 96 Oxygen Delivery Method Sepsis Recent Fever Within 48 Hours Sepsis New/Unexplained Change in Mental Status Sepsis Action Taken by Nursing 08/29/23 22:00 Temperature Temperature Source Pulse Rate Pulse Rate from SpO2 Sensor 85 Respiratory Rate 16 Respiratory Effort / Characteristics Respiratory Depth Blood Pressure 146/88 H Blood Pressure Mean 107 Pulse Oximetry 96 Oxygen Delivery Method Sepsis Recent Fever Within 48 Hours Sepsis New/Unexplained Change in Mental Status Sepsis Action Taken by Nursing Laboratory Data 08/29/23 15:52 08/29/23 15:52 Lab Results 08/29/23 08/29/23 08/29/23 Range/Units 15:52 16:30 Unknown WBC 13.22 H (4.8-10.8) K/ul RBC 3.71 L (4.20-5.40) M/uL Hgb 10.8 L (12.0-16.0) g/dl Hct 31.9 L (37.0-47.0) % MCV 86.0 (80.0-100.0) fL MCH 29.1 (25.0-34.0) pg MCHC 33.9 (32.0-36.0) g/dL RDW Std Deviation 37.5 (36.4-46.3) fL RDW Coeff of Velasquez 12.1 (11.5-14.5) % Plt Count 527 H (130-400) K/uL MPV 8.4 L (9.4-12.4) fL Immature Gran % (Auto) 0.7 % Neut % (Auto) 76.4 % Lymph % (Auto) 13.3 % [place] % (Auto) 7.5 % Eos % (Auto) 1.7 % Baso % (Auto) 0.4 % Neut # (Auto) 10.11 H (1.40-6.50) K/uL Lymph # (Auto) 1.76 (1.20-3.40) K/uL [place] # (Auto) 0.99 H (0.11-0.59) K/uL Eos # (Auto) 0.22 (0.00-0.50) K/uL Baso # (Auto) 0.05 (0.00-0.20) K/uL Immature Gran # (Auto) 0.09 (0.01-0.20) K/uL PT 10.8 (9.0-12.0) Seconds INR 1.0 (0.9-1.1) Sodium 130 L (136-145) mmol/L Potassium 3.7 (3.5-5.1) mmol/L Chloride 92 L (98-107) mmol/L Carbon Dioxide 29 (21-32) mmol/L Anion Gap 9 (3-11) BUN 24 H (6-23) mg/dl Creatinine 0.45 L (0.6-1.2) mg/dl Est Cr Clr Drug Dosing Not Reportable Est GFR ( Amer) 109.7 ml/min Est GFR (Non-Af Amer) 94.6 ml/min BUN/Creatinine Ratio 53.3 H (10-20) Glucose 124 H (70-99(Fasting)) mg/dl Lactate 1.2 (0.4-2.0) mmol/L Calcium 9.0 (8.6-10.3) mg/dl Magnesium 1.9 (1.7-2.4) mg/dl Total Bilirubin 0.4 (0.2-1.0) mg/dl AST 16 (13-39) U/L ALT 19 (7-52) U/L Alkaline Phosphatase 69 (34-104) U/L Troponin I High Sens 3.5 (0-14) pg/ml Total Protein 6.3 (6.0-8.3) gm/dl Albumin 3.8 (3.4-5.0) gm/dl Globulin 2.5 (2.5-4.0) gm/dl Albumin/Globulin Ratio 1.5 (0.9-2) Lipase 30 (11-82) U/L Urine Color Yellow Urine Appearance Clear (Clear) Urine pH 8.0 H (4.5-7.5) Ur Specific Purchase 1.038 H (1.000-1.030) Urine Protein Negative (Negative) Urine Glucose (UA) Negative (Negative) Urine Ketones Trace H (Negative) Urine Blood Negative (Negative) Urine Nitrite Negative (Negative) Urine Bilirubin Negative (Negative) Urine Urobilinogen Negative (Negative) Ur Leukocyte Esterase 1+ H (Negative) Urine WBC (Auto) 0-5 (0-5) /hpf Urine RBC (Auto) 0-2 (0-2) /hpf U Hyaline Cast (Auto) 0-2 (0-2) /lpf U Epithel Cells (Auto) 3-5 H (0-2) /hpf Urine Bacteria (Auto) None Seen (None Seen) Adenovirus (PCR) Not Detected (NotDetected) B. pertussis DNA (PCR) Not Detected (NotDetected) B.parapertussis DNA PCR Not Detected (NotDetected) C. pneumoniae DNA (PCR) Not Detected (NotDetected) Coronavirus OC43 (PCR) Not Detected (NotDetected) Coronavirus HKU1 (PCR) Not Detected (NotDetected) Coronavirus 229E (PCR) Not Detected (NotDetected) SARS-CoV-2 (PCR) Not Detected (NotDetected) Coronavirus NL63 (PCR) Not Detected (NotDetected) Human Metapneumovir PCR Not Detected (NotDetected) Influenza Type A (PCR) Not Detected (NotDetected) Influenza Type B (PCR) Not Detected (NotDetected) M. pneumoniae (PCR) Not Detected (NotDetected) Parainfluenza 1 (PCR) Not Detected (NotDetected) Parainfluenza 2 (PCR) Not Detected (NotDetected) Parainfluenza 3 (PCR) Not Detected (NotDetected) Parainfluenza 4 (PCR) Not Detected (NotDetected) RSV (PCR) Not Detected (NotDetected) Entero/Rhino (PCR) Not Detected (NotDetected) Administered Medications Discontinued Medications Sodium Chloride (Nss) 1,000 mls @ 999 mls/hr IV .Q1H1M ONE Stop: 08/29/23 17:08 Last Infusion: 08/29/23 17:32 Dose: Infused Documented By: Admin: 08/29/23 16:28 Dose: 999 mls/hr Documented By: ESTEFANIA Piperacillin Sod/Tazobactam Sod (Zosyn) 4.5 gm in 100 mls @ 200 mls/hr IV NOW ONE Stop: 08/29/23 20:14 Last Infusion: 08/29/23 21:13 Dose: Infused Documented By: Admin: 08/29/23 20:34 Dose: 200 mls/hr Documented By: ESTEFANIA Pantoprazole Sodium 40 mg/ (Syringe) 10 mls @ 5 mls/min IV NOW ONE Stop: 08/29/23 19:54 Last Admin: 08/29/23 20:39 Dose: 5 mls/min Documented By: ESTEFANIA Ioversol (Optiray 320 100ml) 93 ml IV ONCE ONE Stop: 08/29/23 17:40 Last Admin: 08/29/23 17:39 Dose: 93 ml Documented By: BAY Ondansetron HCl (Ondansetron Inj 2 Mg/Ml 2 Ml Vial) 4 mg IV NOW STA Stop: 08/29/23 20:09 Last Admin: 08/29/23 20:39 Dose: 4 mg Documented By: ESTEFANIA Imaging Data Radiologist's Impression: Abdomen/Pelvis CT 08/29/23 15:45 CT SCAN OF THE ABDOMEN AND PELVIS WITH IV CONTRAST CLINICAL HISTORY: Nausea. Generalized abdominal pain. COMPARISON STUDY: No priors. TECHNIQUE: Following the IV administration of 93 cc of Optiray 320, CT scan of the abdomen and pelvis is performed from the lung bases to the proximal femora. Images are reviewed in the axial, sagittal, and coronal planes. IV contrast was administered without complication. A dose lowering technique was utilized adhering to the principles of ALARA. CT DOSE: 726.85 mGy.cm FINDINGS: Lung bases: The heart is mildly enlarged and without pericardial effusion. There is bibasilar scarring/atelectasis. No airspace consolidation or pleural effusion is identified. Liver: The contrast-enhanced liver is normal in size, contour, and attenuation. There is no intrahepatic biliary ductal dilatation. The hepatic veins and portal veins are patent. Small hepatic cysts measure up to 12 mm Additional small hepatic cysts measure up to 12 mm scattered subcentimeter hepatic hypodensities likely represent cysts but are too small for definitive characterization. Gallbladder: Surgically absent noting clips in the gallbladder fossa. Spleen: Normal in size and attenuation. Pancreas: The pancreas is a trophic. 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 Adrenal glands: Unremarkable. Kidneys: The contrast enhanced kidneys are normal in size and without hydronephrosis. The kidneys enhance symmetrically. There is a 3.4 cm left upper pole renal cyst. Additional subcentimeter cortical hypodensities also likely represent cysts but are too small for definitive characterization. There are at least 6 tiny nonobstructing right renal calculi which measure up to 3 mm. No ureteral stone is seen. Abdominal vasculature: The abdominal aorta is normal in course and caliber noting moderate atherosclerotic calcification. Stomach and bowel: There is wall thickening and edema of the distal stomach/proximal duodenum with surrounding infiltration. There is apparent mucosal discontinuity inferiorly with a small outpouching of fluid seen on axial image #123. This measures up to 1.5 cm. Findings are suspicious for ulcer disease with a contained perforation. There are mildly enlarged adjacent lymph nodes which measure up to 1.3 cm as seen on image #130. There is a serpiginous fluid collection along the superior aspect of the gastroduodenal junction extending towards the right ventral abdominal wall seen on images #98-107. This measures approximately 2.5 x 2 cm in aggregate dimension. There is [id number] colonic fecal retention. No bowel obstruction is seen. The appendix is not identified and reportedly surgically absent. Peritoneum: There is no intraperitoneal free air or abdominal ascites. There is a small fat-containing umbilical hernia. Lymphadenopathy: None. Pelvic viscera: Evaluation of the pelvis is degraded by streak artifact from bilateral hip arthroplasties. The bladder is normal as visualized. The uterus is surgically absent. No adnexal lesion is seen. Skeletal structures: The skeletal structures are osteopenic. There is mild lumbosacral spondylosis. 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 No lytic or blastic lesions are seen. Bilateral hip arthroplasties are in place. There is significant edema and fluid overlying the left hip arthroplasty with skin clips in place. A fluid collection lateral to the greater trochanter seen on axial image #285 measures approximately 8 x 2 x 2 cm it is likely recently postoperative seroma/hematoma. IMPRESSION: 1. There is wall thickening and edema of the distal stomach/proximal duodenum with surrounding inflammation. Additionally, there is apparent mucosal discontinuity inferiorly with a small outpouching of fluid. Findings are suspicious for ulcer disease with a contained perforation. Endoscopy is recommended for further assessment and to exclude underlying mass lesion. 2. Additionally, there is a serpiginous fluid collection or tract which extends from the gastroduodenal junction anteriorly to the ventral peritoneum as above. This could represent a developing fistula or abscess. 3. No intraperitoneal free air is seen. 4. Right-sided nephrolithiasis 5. A left hip arthroplasty is in place, with expected overlying postsurgical change. A serpiginous fluid collection in the lateral subcutaneous soft tissues at this site likely resents a postoperative seroma/hematoma. The sterility of this fluid cannot be assessed by imaging and clinical correlation will be required. 6. Additional findings as above. ACT 112: Negative or not required by law. Electronically signed by: Daryl Garcia M.D. 08/29/2023 7:28 PM Abdomen/Pelvis CT 08/29/23 19:55 Exam(s): CT ABDOMEN + PELVIS With Contrast Oral - High Density Amt: 30 cc gastro EXAM: CT Abdomen and Pelvis With Intravenous Contrast CLINICAL HISTORY: Reason for exam: concern for possible perforation. TECHNIQUE: Axial computed tomography images of the abdomen and pelvis with intravenous contrast. CTDI is 15 mGy and DLP is 678 mGy-cm. Automated exposure control was utilized for the study. A dose lowering technique was utilized adhering to the principles of ALARA. CONTRAST: Patient received 30 cc gastro of Oral - High Density contrast COMPARISON: August 29, 2023 at 1735 hrs. FINDINGS: Lung bases: Unremarkable. No mass. No consolidation. ABDOMEN: Liver: 2.4 cm cyst along the anterior margin of the liver near the falciform ligament. There is a punctate calcification within a thin septation. No follow-up is required. Gallbladder and bile ducts: The gallbladder has been removed. No biliary duct dilation is seen. Pancreas: Unremarkable. No mass. No ductal dilation. Spleen: Unremarkable. No splenomegaly. Adrenals: Unremarkable. No mass. Kidneys and ureters: 3 cm simple cyst in the left kidney. No follow- up is required. No hydronephrosis. Stomach and bowel: There is oral contrast within the stomach, duodenum, small bowel, and colon. There is wall thickening and indistinctness of the medial wall of the first and second portions of the duodenum suspicious for duodenal ulcer disease, less likely neoplasm. No contrast extravasation is seen to indicate perforation. No obstruction. PELVIS: Appendix: No findings to suggest acute appendicitis. Bladder: Unremarkable. No mass. Reproductive: Unremarkable as visualized. ABDOMEN and PELVIS: Intraperitoneal space: The uterus is absent. No free fluid is seen in the pelvis. No free air. Bones/joints: Metallic artifact from bilateral hip arthroplasties. No acute fracture or dislocation is seen. Mild to moderate degenerative changes throughout the spine. No acute fracture or subluxation is seen. There is a unilateral left pars defect at L5 without spondylolisthesis. Soft tissues: Unremarkable. Vasculature: The abdominal aorta is calcified but nondilated. Lymph nodes: Unremarkable. No enlarged lymph nodes. Other findings: No fistulous tract is identified. IMPRESSION: There is oral contrast within the stomach, duodenum, small bowel, and colon. There is wall thickening and indistinctness of the medial wall of the first and second portions of the duodenum suspicious for duodenal ulcer disease, less likely neoplasm or duodenitis. No contrast extravasation is seen to indicate perforation. No fistulous tract is identified. Electronically signed by: Judd Briggs MD 08/29/23 22:29 PM Discharge Plan Visit Data Chief Complaint: Abdominal Pain ED Provider: Hyun Chapman Discharge Problem: Abdominal pain, Duodenal ulcer disease, Leukocytosis Forms Stand Alone Forms: [facility] [employer] Prescriptions Prescriptions: No Action (DME) Wheeled Walker Misc See Rx Instructions .MEDSUPPLY Qty: 1 0RF Rx Instructions: As directed ondansetron 4 mg tablet,disintegrating 4 mg PO Q8 PRN (Reason: nausea) Qty: 20 1RF Patient Comments: post op Rx Instructions: Take as needed for nausea sennosides [Senokot] 8.6 mg tablet 8.6 mg PO BID 14 Days Qty: 28 0RF Patient Comments: post op Rx Instructions: Take two times a day to prevent/treat constipation acetaminophen [Tylenol Extra Strength] 500 mg tablet 1,000 mg PO TID 30 Days Qty: 180 0RF Patient Comments: post op Rx Instructions: Take 3 times per day to lessen pain aspirin [Amaris Low Dose Aspirin] 81 mg tablet,delayed release (DR/EC) 81 mg PO BID 45 Days Qty: 90 0RF Patient Comments: post op Rx Instructions: Take to prevent blood clots. alendronate [Fosamax] 70 mg Tablet 70 mg PO WK Patient Comments: takes on sundays ergocalciferol (vitamin D2) 50,000 unit Tablet 50,000 unit PO WK Patient Comments: takes magnesium Tablet 1 tab PO QAM Macular Health Formula 5-1-7.5 mg Capsule 1 cap PO QAM amoxicillin 500 mg tablet 2,000 mg PO UD PRN (Reason: prior to dental procedures) Rx Instructions: TAKE 4 TABLETS ONE HOUR PRIOR TO DENTAL WORK Referrals Referrals: Aurelia Solo, [Primary Care Provider] -
[2023-08-29 16:22] LABS: Basophils # (auto) 0.05 K/uL (0.00-0.20); Basophils % (auto) 0.4 %; Eosinophils # (auto) 0.22 K/uL (0.00-0.50); Eosinophils % (auto) 1.7 %; Hematocrit (blood only) 31.9 % (37.0-47.0); Hemoglobin 10.8 g/dl (12.0-16.0); Immature Granulocytes # (auto) 0.09 K/uL (0.01-0.20); Immature Granulocytes % (auto) 0.7 %; Lymphocytes # (auto) 1.76 K/uL (1.20-3.40); Lymphocytes % (auto) 13.3 %; Mean Corpuscular Hemoglobin 29.1 pg (25.0-34.0); Mean Corpuscular Hgb Conc 33.9 g/dL (32.0-36.0); Mean Platelet Volume 8.4 fL (9.4-12.4); Monocytes # (auto) 0.99 K/uL (0.11-0.59); Monocytes % (auto) 7.5 %; Neutrophils # (auto) 10.11 K/uL (1.40-6.50); Neutrophils % (auto) 76.4 %; Platelet Count 527 K/uL (130-400); RDW Coefficient of Variation 12.1 % (11.5-14.5); RDW Standard Deviation 37.5 fL (36.4-46.3); Red Blood Count 3.71 M/uL (4.20-5.40); White Blood Count 13.22 K/ul (4.8-10.8)
[2023-08-29 16:24] LABS: Alanine Aminotransferase 19 U/L (7-52); Albumin Globulin Ratio 1.5 (0.9-2); Albumin Level 3.8 gm/dl (3.4-5.0); Alkaline Phosphatase 69 U/L (34-104); Anion Gap 9 (3-11); Aspartate Aminotransferase 16 U/L (13-39); BUN Creatinine Ratio 53.3 (10-20); Bilirubin,Total 0.4 mg/dl (0.2-1.0); Blood Urea Nitrogen 24 mg/dl (6-23); Carbon Dioxide 29 mmol/L (21-32); Chloride 92 mmol/L (98-107); Est GFR (African American) 109.7 ml/min; Est GFR (Non-African American) 94.6 ml/min; Globulin 2.5 gm/dl (2.5-4.0); Glucose 124 mg/dl (70-99(Fasting)); Lipase 30 U/L (11-82); Magnesium 1.9 mg/dl (1.7-2.4); Potassium 3.7 mmol/L (3.5-5.1); Sodium 130 mmol/L (136-145); Total Protein 6.3 gm/dl (6.0-8.3)
[2023-08-29] MEDS: SODIUM CHLORIDE 0.9% 1,000 ML IV ONE (16:28)
[2023-08-29 16:31] LABS: Troponin I High Sensitivity 3.5 pg/ml (0-14)
[2023-08-29 16:32] LABS: Prothrombin Time 10.8 Seconds (9.0-12.0)
[2023-08-29] MEDS: OPTIRAY 320 100ml IV ONE (17:39)
[2023-08-29 17:54] LABS: Adenovirus PCR Not Detected (NotDetected); Bordetella parapertussis PCR Not Detected (NotDetected); Bordetella pertussis PCR Not Detected (NotDetected); Chlamydia pneumoniae PCR Not Detected (NotDetected); Coronavirus 229E PCR Not Detected (NotDetected); Coronavirus CoV-2 (COVID19)PCR Not Detected (NotDetected); Coronavirus HKU1 PCR Not Detected (NotDetected); Coronavirus NL63 PCR Not Detected (NotDetected); Coronavirus OC43PCR Not Detected (NotDetected); Human Metapneumovirus PCR Not Detected (NotDetected); Influenza A PCR Not Detected (NotDetected); Influenza B PCR Not Detected (NotDetected); Mycoplasma pneumoniae PCR Not Detected (NotDetected); Parainfluenza Virus 1 PCR Not Detected (NotDetected); Parainfluenza Virus 2 PCR Not Detected (NotDetected); Parainfluenza Virus 3 PCR Not Detected (NotDetected); Parainfluenza Virus 4 PCR Not Detected (NotDetected); Respiratory Syncytial VirusPCR Not Detected (NotDetected); Rhinovirus/Enterovirus PCR Not Detected (NotDetected)
[2023-08-29 19:00] LABS: Appearance Urine Clear (Clear); Bacteria Urine Automated None Seen (None Seen); Bilirubin Urine Negative (Negative); Blood Urine Negative (Negative); Cast Urine Automated 0-2 /lpf (0-2); Color Urine Yellow; Glucose Urine UA Negative (Negative); Ketones Urine Trace (Negative); Leukocyte Esterase Urine 1+ (Negative); Nitrite Urine Negative (Negative); Protein Urine Negative (Negative); RBC Urine Automated 0-2 /hpf (0-2); Specific Gravity Urine 1.038 (1.000-1.030); Urobilinogen Urine Negative (Negative); WBC Urine Automated 0-5 /hpf (0-5)
--- NOTE | 2023-08-29 19:31 | CT Scan Report ---
CT SCAN OF THE ABDOMEN AND PELVIS WITH IV CONTRAST CLINICAL HISTORY: Nausea. Generalized abdominal pain. COMPARISON STUDY: No priors. TECHNIQUE: Following the IV administration of 93 cc of Optiray 320, CT scan of the abdomen and pelvi s is performed from the lung bases to the proximal femora. Images are reviewed in the axial, sagittal , and coronal planes. IV contrast was administered without complication. A dose lowering technique wa s utilized adhering to the principles of ALARA. CT DOSE: 726.85 mGy.cm FINDINGS: Lung bases: The heart is mildly enlarged and without pericardial effusion. There is bibasilar scarrin g/atelectasis. No airspace consolidation or pleural effusion is identified. Liver: The contrast-enhanced liver is normal in size, contour, and attenuation. There is no intrahepa tic biliary ductal dilatation. The hepatic veins and portal veins are patent. Small hepatic cysts denisha sure up to 12 mm Additional small hepatic cysts measure up to 12 mm scattered subcentimeter hepatic h ypodensities likely represent cysts but are too small for definitive characterization. Gallbladder: Surgically absent noting clips in the gallbladder fossa. Spleen: Normal in size and attenuation. Pancreas: The pancreas is a trophic. 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 Adrenal glands: Unremarkable. Kidneys: The contrast enhanced kidneys are normal in size and without hydronephrosis. The kidneys enh ance symmetrically. There is a 3.4 cm left upper pole renal cyst. Additional subcentimeter cortical h ypodensities also likely represent cysts but are too small for definitive characterization. There are at least 6 tiny nonobstructing right renal calculi which measure up to 3 mm. No ureteral stone is se en. Abdominal vasculature: The abdominal aorta is normal in course and caliber noting moderate atheroscle rotic calcification. Stomach and bowel: There is wall thickening and edema of the distal stomach/proximal duodenum with sanchez rrounding infiltration. There is apparent mucosal discontinuity inferiorly with a small outpouching o f fluid seen on axial image #123. This measures up to 1.5 cm. Findings are suspicious for ulcer disea se with a contained perforation. There are mildly enlarged adjacent lymph nodes which measure up to 1 .3 cm as seen on image #130. There is a serpiginous fluid collection along the superior aspect of the gastroduodenal junction extending towards the right ventral abdominal wall seen on images #[id number]. T his measures approximately 2.5 x 2 cm in aggregate dimension. There is fxbo-gr-breaezya colonic fecal retention. No bowel obstruction is seen. The appendix is not identified and reportedly surgically a bsent. Peritoneum: There is no intraperitoneal free air or abdominal ascites. There is a small fat-containin g umbilical hernia. Lymphadenopathy: None. Pelvic viscera: Evaluation of the pelvis is degraded by streak artifact from bilateral hip arthroplas ties. The bladder is normal as visualized. The uterus is surgically absent. No adnexal lesion is seen . Skeletal structures: The skeletal structures are osteopenic. There is mild lumbosacral spondylosis. S clerotic change is noted in the pubic symphysis.1 There is a left-sided pars defect at L5. No lytic o r blastic lesions are seen. Bilateral hip arthroplasties are in place. There is significant edema and fluid overlying the left hip arthroplasty with skin clips in place. A fluid collection lateral to th e greater trochanter seen on axial image #285 measures approximately 8 x 2 x 2 cm it is likely recent ly postoperative seroma/hematoma. IMPRESSION: 1. There is wall thickening and edema of the distal stomach/proximal duodenum with surrounding inflam mation. Additionally, there is apparent mucosal discontinuity inferiorly with a small outpouching of fluid. Findings are suspicious for ulcer disease with a contained perforation. Endoscopy is recommend ed for further assessment and to exclude underlying mass lesion. 2. Additionally, there is a serpiginous fluid collection or tract which extends from the gastroduoden al junction anteriorly to the ventral peritoneum as above. This could represent a developing fistula or abscess. 3. No intraperitoneal free air is seen. 4. Right-sided nephrolithiasis 5. A left hip arthroplasty is in place, with expected overlying postsurgical change. A serpiginous fl uid collection in the lateral subcutaneous soft tissues at this site likely resents a postoperative s eroma/hematoma. The sterility of this fluid cannot be assessed by imaging and clinical correlation wi ll be required. 6. Additional findings as above. ACT 112: Negative or not required by law. Electronically signed by: Daryl Garcia M.D. 08/29/2023 7:28 PM
[2023-08-29] MEDS: PIPERACILLIN/TAZOBACTAM 4.5 GM/100 ML BAG IV ONE (20:34)
[2023-08-29] MEDS: PANTOprazole 40 MG in SYRINGE 0 ML IV ONE (20:39)
[2023-08-29] MEDS: ONDANSETRON INJ 2 MG/ML 2 ML VIAL IV STA (20:39)
--- NOTE | 2023-08-29 22:30 | CT Scan Report ---
Exam(s): CT ABDOMEN + PELVIS With Contrast Oral - High Density Amt: 30 cc gastro EXAM: CT Abdomen and Pelvis With Intravenous Contrast CLINICAL HISTORY: Reason for exam: concern for possible perforation. TECHNIQUE: Axial computed tomography images of the abdomen and pelvis with intravenous contrast. CTDI is 15 mGy and DLP is 678 mGy-cm. Automated exposure control was utilized for the study. A dose lowering technique was utilized adhering to the principles of ALARA. CONTRAST: Patient received 30 cc gastro of Oral - High Density contrast COMPARISON: August 29, 2023 at 1735 hrs. FINDINGS: Lung bases: Unremarkable. No mass. No consolidation. ABDOMEN: Liver: 2.4 cm cyst along the anterior margin of the liver near the falciform ligament. There is a punctate calcification within a thin septation. No follow-up is required. Gallbladder and bile ducts: The gallbladder has been removed. No biliary duct dilation is seen. Pancreas: Unremarkable. No mass. No ductal dilation. Spleen: Unremarkable. No splenomegaly. Adrenals: Unremarkable. No mass. Kidneys and ureters: 3 cm simple cyst in the left kidney. No follow- up is required. No hydronephrosis. Stomach and bowel: There is oral contrast within the stomach, duodenum, small bowel, and colon. There is wall thickening and indistinctness of the medial wall of the first and second portions of the duodenum suspicious for duodenal ulcer disease, less likely neoplasm. No contrast extravasation is seen to indicate perforation. No obstruction. PELVIS: Appendix: No findings to suggest acute appendicitis. Bladder: Unremarkable. No mass. Reproductive: Unremarkable as visualized. ABDOMEN and PELVIS: Intraperitoneal space: The uterus is absent. No free fluid is seen in the pelvis. No free air. Bones/joints: Metallic artifact from bilateral hip arthroplasties. No acute fracture or dislocation is seen. Mild to moderate degenerative changes throughout the spine. No acute fracture or subluxation is seen. There is a unilateral left pars defect at L5 without spondylolisthesis. Soft tissues: Unremarkable. Vasculature: The abdominal aorta is calcified but nondilated. Lymph nodes: Unremarkable. No enlarged lymph nodes. Other findings: No fistulous tract is identified. IMPRESSION: There is oral contrast within the stomach, duodenum, small bowel, and colon. There is wall thickening and indistinctness of the medial wall of the first and second portions of the duodenum suspicious for duodenal ulcer disease, less likely neoplasm or duodenitis. No contrast extravasation is seen to indicate perforation. No fistulous tract is identified. Electronically signed by: Judd Briggs MD 08/29/23 22:29 PM
--- NOTE | 2023-08-30 01:48 | History & Physical Report ---
Date of Service August 30, 2023 Assessment & Plan (1) Abdominal pain: Plan: 78-year-old female with past medical history significant for prediabetes, cyst of pancreas, recurrent UTI, cystocele, vitiligo, degenerative disc disease, osteoporosis, history of colon cancer and status post partial colectomy comes because of abdominal pain and constipation and found to have duodenal ulcer. Patient recently had left hip surgery. She was taking pain medication. Was constipated. But even after stopping the pain medication she did not move her bowels. She had a small loose stool today. She was having epigastric abdominal pain. Was feeling nauseous. Not able to eat much. In the ER initial CT scan there was question of duodenal ulcer with contained perforation and possible fistula. But CT scan with contrast just showed duodenal ulcer but no perforation or fistula seen. Currently resting comfortably and hemodynamically stable. Denies any headache. No dizziness. No blurred vision. No runny nose or sore throat. No cough. No chest pain or shortness of breath. States stools has been black. Micturating okay. Patient recently had left hip arthroplasty on August 18, 2023 and she has been on aspirin for DVT prophylaxis since then. Abdominal pain CT scan with contrast showing possible duodenal ulcer disease initial CT scan without contrast was there was suspicious for ulcer disease with contained perforation and also possible developing fistula or abscess on IV Protonix, n.p.o., IV fluids. And empiric Zosyn. Hold aspirin consult GI in a.m. questionable black stools hemoglobin 10.8 hemoglobin was 11 on 08/19/2023 will follow stool for Hemoccult and repeat labs recent left hip arthroplasty follow-up with orthopedics was placed on aspirin 81 mg p.o. twice daily for DVT prophylaxis which is held for now DVT prophylaxis SCDs for now disposition med/tele full code History of Present Illness Chief Complaint: abdominal pain Primary Care Provider: Aurelia Solo DO 78-year-old female with past medical history significant for prediabetes, cyst of pancreas, recurrent UTI, cystocele, vitiligo, degenerative disc disease, osteoporosis, history of colon cancer and status post partial colectomy comes because of abdominal pain and constipation and found to have duodenal ulcer. Patient recently had left hip surgery. She was taking pain medication. Was constipated. But even after stopping the pain medication she did not move her bowels. She had a small loose stool today. She was having epigastric abdominal pain. Was feeling nauseous. Not able to eat much. In the ER initial CT scan there was question of duodenal ulcer with contained perforation and possible fistula. But CT scan with contrast just showed duodenal ulcer but no perforation or fistula seen. Currently resting comfortably and hemodynamically stable. Denies any headache. No dizziness. No blurred vision. No runny nose or sore throat. No cough. No chest pain or shortness of breath. States stools has been black. Micturating okay. Patient recently had left hip arthroplasty on August 18, 2023 and she has been on aspirin for DVT prophylaxis since then. Past medical history. As mentioned above Past surgical history. Colonoscopy. EGD. EGD with endoscopic ultrasound. Ligation of oviducts. Partial colectomy. Cholecystectomy. Right total hip replacement. Vaginal hysterectomy. S/p total left hip arthroplasty on August 18, 2023. Social history. Lives alone. Currently sister living with her since her hip surgery. No smoking. Alcohol occasional. No drug use. Family history. Mother had emphysema, Alzheimer's. Father had emphysema, lung cancer. Allergies Allergy/AdvReac Type Severity Reaction Status Date / Time Sulfa (Sulfonamide Allergy Intermediate HIVES Verified 08/18/23 07:13 Antibiotics) Home Medications Medication Instructions Recorded Confirmed Type alendronate 70 mg tablet (Fosamax) 70 mg PO WK 07/10/23 08/29/23 History amoxicillin 500 mg tablet 2,000 mg PO UD PRN prior to dental 07/10/23 08/29/23 History procedures ergocalciferol (vitamin D2) 50,000 50,000 unit PO WK 07/10/23 08/29/23 History unit tablet magnesium 1 tab PO QAM 07/10/23 08/29/23 History ltudrffo-hhj-hxhape 5 mg-zeaxanth 1 cap PO QAM 07/10/23 08/29/23 History 1 mg-bilberry 7.5 mg-herbal capsule (Macular Health Formula) Wheeled Walker #1 ea 08/11/23 Rx acetaminophen 500 mg tablet 1,000 mg (2 x 500 mg) PO TID pain 08/16/23 08/29/23 Rx (Tylenol Extra Strength) 30 days #180 tabs aspirin 81 mg tablet,delayed 81 mg PO BID 45 days #90 tabs 08/16/23 08/29/23 Rx release (Amaris Low Dose Aspirin) ondansetron 4 mg disintegrating 4 mg PO Q8 PRN nausea #20 tabs 08/16/23 08/29/23 Rx tablet sennosides 8.6 mg tablet (Senokot) 8.6 mg PO BID prevent constipation 08/16/23 08/29/23 Rx 14 days #28 tabs Past Med/Surg History Problem List (Updated 08/29/23 @ 22:36 by Hyun Chapman MD) Leukocytosis (Acute) Duodenal ulcer disease (Acute) Abdominal pain (Acute) S/P total left hip arthroplasty Degenerative arthritis of knee, bilateral Medical History Osteoarthritis Bilateral knees, left hip History of colorectal cancer diagnosed 1997--s/p partial colon resection, chemo/radiation History of COVID-2020--mild symptoms, no symptoms now History of postoperative nausea and vomiting Surgical History History of benign breast biopsy History of total hysterectomy with bilateral salpingo-oophorectomy (BSO) History of total right hip replacement History of colonoscopy History of cholecystectomy History of colon resection 1997 History of tooth extraction all teeth removed History of bilateral cataract extraction Family History Other No family history of adverse response to anesthesia Social History Smoking Status: Never smoker Second Hand Exposure: No; Do You Dip or Chew Tobacco: No; Hx Alcohol Use: No Hx Substance Use: No Preferred Language: Korean Communication Ability: Effective Department Supervisor Required: No Beliefs That Will Affect Care: None Current Living Situation: Alone Other Information That Helps Us Care for You: No Feels Safe at Home: Yes Safety Concerns: Feels Safe At This Time Assistive Devices: Cane, Denture - Upper, Denture - Lower and Glasses Review of Systems Review of Systems: All systems reviewed & are unremarkable except as noted in HPI & below Physical Exam Physical Exam: General- Not in distress Head- atraumatic Eyes- PERRL. ENT- oropharynx clear Neck- supple, no JVD. Lungs- clear to auscultation no wheezing or crackles. Heart- regular rate and rhythm; no murmur, no gallop. Abdomen- normal bowel sounds, soft, nontender, no distension. Extremities- no pretibial edema, no erythema seen. Left hip surgery site no drainage or erythema seen. jagjit intact. Neuro- alert, oriented PERRL, no facial palsy; no dysarthria; moves extremities. Results & Data Results & Data Vital Signs (Past 12 Hours) Vital Signs Temp Pulse Pulse Resp BP BP Pulse Ox 08/30/23 01:00 88 16 97 08/30/23 00:05 85 08/29/23 23:00 90 18 105/85 98 08/29/23 22:00 16 146/88 H 96 08/29/23 21:30 96 08/29/23 21:15 99 08/29/23 20:30 90 14 174/91 H 97 08/29/23 20:09 96 H 19 96 08/29/23 20:06 98 H 08/29/23 19:30 82 18 97 08/29/23 19:30 133/72 08/29/23 19:09 80 15 143/76 H 95 08/29/23 18:42 79 19 92 08/29/23 18:03 81 18 98 08/29/23 17:51 79 16 97 08/29/23 17:09 76 17 99 08/29/23 16:33 84 13 137/79 96 08/29/23 16:24 83 15 96 08/29/23 16:07 86 08/29/23 16:06 87 19 98 08/29/23 16:05 96 08/29/23 15:35 36.8 C 112 H 18 112/75 96 O2 Del Method 08/30/23 01:00 Room Air 08/30/23 00:05 08/29/23 23:00 Room Air 08/29/23 22:00 08/29/23 21:30 08/29/23 21:15 08/29/23 20:30 08/29/23 20:09 08/29/23 20:06 08/29/23 19:30 08/29/23 19:30 08/29/23 19:09 08/29/23 18:42 08/29/23 18:03 08/29/23 17:51 08/29/23 17:09 08/29/23 16:33 08/29/23 16:24 08/29/23 16:07 08/29/23 16:06 08/29/23 16:05 Room Air 08/29/23 15:35 Room Air Diagnostic Findings Laboratory Results WBC 13.22 K/ul (4.8-10.8) H 08/29/23 15:52 RBC 3.71 M/uL (4.20-5.40) L 08/29/23 15:52 Hgb 10.8 g/dl (12.0-16.0) L 08/29/23 15:52 Hct 31.9 % (37.0-47.0) L 08/29/23 15:52 MCV 86.0 fL (80.0-100.0) 08/29/23 15:52 MCH 29.1 pg (25.0-34.0) 08/29/23 15:52 MCHC 33.9 g/dL (32.0-36.0) 08/29/23 15:52 RDW Std Deviation 37.5 fL (36.4-46.3) 08/29/23 15:52 RDW Coeff of Velasquez 12.1 % (11.5-14.5) 08/29/23 15:52 Plt Count 527 K/uL (130-400) H 08/29/23 15:52 MPV 8.4 fL (9.4-12.4) L 08/29/23 15:52 Immature Gran % (Auto) 0.7 % 08/29/23 15:52 Neut % (Auto) 76.4 % 08/29/23 15:52 Lymph % (Auto) 13.3 % 08/29/23 15:52 [place] % (Auto) 7.5 % 08/29/23 15:52 Eos % (Auto) 1.7 % 08/29/23 15:52 Baso % (Auto) 0.4 % 08/29/23 15:52 Neut # (Auto) 10.11 K/uL (1.40-6.50) H 08/29/23 15:52 Lymph # (Auto) 1.76 K/uL (1.20-3.40) 08/29/23 15:52 [place] # (Auto) 0.99 K/uL (0.11-0.59) H 08/29/23 15:52 Eos # (Auto) 0.22 K/uL (0.00-0.50) 08/29/23 15:52 Baso # (Auto) 0.05 K/uL (0.00-0.20) 08/29/23 15:52 Immature Gran # (Auto) 0.09 K/uL (0.01-0.20) 08/29/23 15:52 PT 10.8 Seconds (9.0-12.0) 08/29/23 15:52 INR 1.0 (0.9-1.1) 08/29/23 15:52 Sodium 130 mmol/L (136-145) L 08/29/23 15:52 Potassium 3.7 mmol/L (3.5-5.1) 08/29/23 15:52 Chloride 92 mmol/L (98-107) L 08/29/23 15:52 Carbon Dioxide 29 mmol/L (21-32) 08/29/23 15:52 Anion Gap 9 (3-11) 08/29/23 15:52 BUN 24 mg/dl (6-23) H 08/29/23 15:52 Creatinine 0.45 mg/dl (0.6-1.2) L 08/29/23 15:52 Est Cr Clr Drug Dosing Not Reportable 08/29/23 15:52 Est GFR ( Amer) 109.7 ml/min 08/29/23 15:52 Est GFR (Non-Af Amer) 94.6 ml/min 08/29/23 15:52 BUN/Creatinine Ratio 53.3 (10-20) H 08/29/23 15:52 Glucose 124 mg/dl (70-99(Fasting)) H 08/29/23 15:52 Lactate 1.2 mmol/L (0.4-2.0) 08/29/23 16:30 Calcium 9.0 mg/dl (8.6-10.3) 08/29/23 15:52 Magnesium 1.9 mg/dl (1.7-2.4) 08/29/23 15:52 Total Bilirubin 0.4 mg/dl (0.2-1.0) 08/29/23 15:52 AST 16 U/L (13-39) 08/29/23 15:52 ALT 19 U/L (7-52) 08/29/23 15:52 Alkaline Phosphatase 69 U/L (34-104) 08/29/23 15:52 Troponin I High Sens 3.5 pg/ml (0-14) 08/29/23 15:52 Total Protein 6.3 gm/dl (6.0-8.3) 08/29/23 15:52 Albumin 3.8 gm/dl (3.4-5.0) 08/29/23 15:52 Globulin 2.5 gm/dl (2.5-4.0) 08/29/23 15:52 Albumin/Globulin Ratio 1.5 (0.9-2) 08/29/23 15:52 Lipase 30 U/L (11-82) 08/29/23 15:52 Urine Color Yellow 08/29/23 Unknown Urine Appearance Clear (Clear) 08/29/23 Unknown Urine pH 8.0 (4.5-7.5) H 08/29/23 Unknown Ur Specific [place] 1.038 (1.000-1.030) H 08/29/23 Unknown Urine Protein Negative (Negative) 08/29/23 Unknown Urine Glucose (UA) Negative (Negative) 08/29/23 Unknown Urine Ketones Trace (Negative) H 08/29/23 Unknown Urine Blood Negative (Negative) 08/29/23 Unknown Urine Nitrite Negative (Negative) 08/29/23 Unknown Urine Bilirubin Negative (Negative) 08/29/23 Unknown Urine Urobilinogen Negative (Negative) 08/29/23 Unknown Ur Leukocyte Esterase 1+ (Negative) H 08/29/23 Unknown Urine WBC (Auto) 0-5 /hpf (0-5) 08/29/23 Unknown Urine RBC (Auto) 0-2 /hpf (0-2) 08/29/23 Unknown U Hyaline Cast (Auto) 0-2 /lpf (0-2) 08/29/23 Unknown U Epithel Cells (Auto) 3-5 /hpf (0-2) H 08/29/23 Unknown Urine Bacteria (Auto) None Seen (None Seen) 08/29/23 Unknown Adenovirus (PCR) Not Detected (NotDetected) 08/29/23 16:30 B. pertussis DNA (PCR) Not Detected (NotDetected) 08/29/23 16:30 B.parapertussis DNA PCR Not Detected (NotDetected) 08/29/23 16:30 C. pneumoniae DNA (PCR) Not Detected (NotDetected) 08/29/23 16:30 Coronavirus OC43 (PCR) Not Detected (NotDetected) 08/29/23 16:30 Coronavirus HKU1 (PCR) Not Detected (NotDetected) 08/29/23 16:30 Coronavirus 229E (PCR) Not Detected (NotDetected) 08/29/23 16:30 SARS-CoV-2 (PCR) Not Detected (NotDetected) 08/29/23 16:30 Coronavirus NL63 (PCR) Not Detected (NotDetected) 08/29/23 16:30 Human Metapneumovir PCR Not Detected (NotDetected) 08/29/23 16:30 Influenza Type A (PCR) Not Detected (NotDetected) 08/29/23 16:30 Influenza Type B (PCR) Not Detected (NotDetected) 08/29/23 16:30 M. pneumoniae (PCR) Not Detected (NotDetected) 08/29/23 16:30 Parainfluenza 1 (PCR) Not Detected (NotDetected) 08/29/23 16:30 Parainfluenza 2 (PCR) Not Detected (NotDetected) 08/29/23 16:30 Parainfluenza 3 (PCR) Not Detected (NotDetected) 08/29/23 16:30 Parainfluenza 4 (PCR) Not Detected (NotDetected) 08/29/23 16:30 RSV (PCR) Not Detected (NotDetected) 08/29/23 16:30 Entero/Rhino (PCR) Not Detected (NotDetected) 08/29/23 16:30 Impressions Abdomen/Pelvis CT 08/29/23 19:55 Exam(s): CT ABDOMEN + PELVIS With Contrast Oral - High Density Amt: 30 cc gastro EXAM: CT Abdomen and Pelvis With Intravenous Contrast CLINICAL HISTORY: Reason for exam: concern for possible perforation. TECHNIQUE: Axial computed tomography images of the abdomen and pelvis with intravenous contrast. CTDI is 15 mGy and DLP is 678 mGy-cm. Automated exposure control was utilized for the study. A dose lowering technique was utilized adhering to the principles of ALARA. CONTRAST: Patient received 30 cc gastro of Oral - High Density contrast COMPARISON: August 29, 2023 at 1735 hrs. FINDINGS: Lung bases: Unremarkable. No mass. No consolidation. ABDOMEN: Liver: 2.4 cm cyst along the anterior margin of the liver near the falciform ligament. There is a punctate calcification within a thin septation. No follow-up is required. Gallbladder and bile ducts: The gallbladder has been removed. No biliary duct dilation is seen. Pancreas: Unremarkable. No mass. No ductal dilation. Spleen: Unremarkable. No splenomegaly. Adrenals: Unremarkable. No mass. Kidneys and ureters: 3 cm simple cyst in the left kidney. No follow- up is required. No hydronephrosis. Stomach and bowel: There is oral contrast within the stomach, duodenum, small bowel, and colon. There is wall thickening and indistinctness of the medial wall of the first and second portions of the duodenum suspicious for duodenal ulcer disease, less likely neoplasm. No contrast extravasation is seen to indicate perforation. No obstruction. PELVIS: Appendix: No findings to suggest acute appendicitis. Bladder: Unremarkable. No mass. Reproductive: Unremarkable as visualized. ABDOMEN and PELVIS: Intraperitoneal space: The uterus is absent. No free fluid is seen in the pelvis. No free air. Bones/joints: Metallic artifact from bilateral hip arthroplasties. No acute fracture or dislocation is seen. Mild to moderate degenerative changes throughout the spine. No acute fracture or subluxation is seen. There is a unilateral left pars defect at L5 without spondylolisthesis. Soft tissues: Unremarkable. Vasculature: The abdominal aorta is calcified but nondilated. Lymph nodes: Unremarkable. No enlarged lymph nodes. Other findings: No fistulous tract is identified. IMPRESSION: There is oral contrast within the stomach, duodenum, small bowel, and colon. There is wall thickening and indistinctness of the medial wall of the first and second portions of the duodenum suspicious for duodenal ulcer disease, less likely neoplasm or duodenitis. No contrast extravasation is seen to indicate perforation. No fistulous tract is identified. Electronically signed by: Judd Briggs MD 08/29/23 22:29 PM ECG Additional Comments: ECG normal sinus rhythm with rate of 96. No significant change was found. Code Status & VTE Plan VTE Prophylaxis Plan VTE Prophylaxis will be ordered: Yes
[2023-08-30] MEDS ORDERED: ONDANSETRON INJ 2 MG/ML 2 ML VIAL IV PRN (03:21)
[2023-08-30] MEDS ORDERED: NITROGLYCERIN SL 0.4 MG/TAB TAB SL PRN (03:21)
[2023-08-30] MEDS: SODIUM CHLORIDE 0.9% 1,000 ML IV SCH (04:55)
[2023-08-30] MEDS: PIPERACILLIN/TAZOBACTAM 4.5 GM in DEXTROSE 5% MINI-B 100 ML IV SCH (04:55)
[2023-08-30] MEDS: ZOLPIDEM TARTRATE 5 MG TAB PO STA (05:00)
[2023-08-30 07:28] LABS: Basophils # (auto) 0.05 K/uL (0.00-0.20); Basophils % (auto) 0.5 %; Eosinophils # (auto) 0.24 K/uL (0.00-0.50); Eosinophils % (auto) 2.4 %; Hematocrit (blood only) 26.9 % (37.0-47.0); Immature Granulocytes # (auto) 0.08 K/uL (0.01-0.20); Immature Granulocytes % (auto) 0.8 %; Lymphocytes # (auto) 1.33 K/uL (1.20-3.40); Lymphocytes % (auto) 13.5 %; Mean Corpuscular Hgb Conc 33.5 g/dL (32.0-36.0); Mean Corpuscular Volume 86.8 fL (80.0-100.0); Mean Platelet Volume 8.3 fL (9.4-12.4); Monocytes # (auto) 0.72 K/uL (0.11-0.59); Monocytes % (auto) 7.3 %; Neutrophils # (auto) 7.45 K/uL (1.40-6.50); Neutrophils % (auto) 75.5 %; Platelet Count 446 K/uL (130-400); RDW Coefficient of Variation 12.4 % (11.5-14.5); RDW Standard Deviation 38.7 fL (36.4-46.3); White Blood Count 9.87 K/ul (4.8-10.8)
[2023-08-30 07:36] LABS: BUN Creatinine Ratio 35.4 (10-20); Calcium 8.3 mg/dl (8.6-10.3); Creatinine Clr Calc Pharmacy 84.1 ml/min; Est GFR (African American) 107.4 ml/min; Est GFR (Non-African American) 92.6 ml/min; Magnesium 1.9 mg/dl (1.7-2.4); Potassium 3.6 mmol/L (3.5-5.1)
[2023-08-30] MEDS: PANTOprazole 40 MG in SYRINGE 0 ML IV SCH (08:04)
--- NOTE | 2023-08-30 10:52 | Gastrointestinal Consultation ---
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 She does need EGD but I am somewhat concerned by the conflicting reading of the CT scans. If her condition will allow I would like to give it 24 more hours on PPI to give ulcer more chance to heal a little as to do EGD with "contained perforation" can certainly make it a free perforation. If her bleeding becomes more clinically significant today will proceed with EGD today otherwise will plan for tomorrow. I explained my reasoning for this to her and her family and also the risks if we have to end up doing procedure emergently today. They u nderstand. There is some mention in her chart of "short bowel syndrome". She does not have this and has no reason to have this. History of Present Illness Reason for Consultation: duodenal ulcer Attending Physician: Dinesh Garcia MD History of Present Illness 78 year old female who had hip replacement surgery on August 17. She says "the following Thursday" she was having issues with nausea and no appetite, as well as constipation. It was felt to be related to pain meds and possibly anesthesia. Pain meds were stopped but her problems continued. She wasn't having much in the way of abdominal pain 2-3 days ago she started having black stools. Initially there was a lot of mucus with "black flakes". Now when she goes to the bathroom she has squirts of black stools. This can happen every time she urinates. Initial CT scan suggested "contained perforation" with possible fistula. Subsequent CT with oral contrast does not definitively confirm perforation. She does take 15 mg meloxicam daily but denies any other NSAIDs. She does not have any history of ulcer disease that she is aware of. She does have a history of colon cancer and had her last colonoscopy 5 years ago at [facility]. Allergies Allergy/AdvReac Type Severity Reaction Status Date / Time Sulfa (Sulfonamide Allergy Intermediate HIVES Verified 08/18/23 07:13 Antibiotics) Home Medications Medication Instructions Recorded Confirmed Type alendronate 70 mg tablet (Fosamax) 70 mg PO WK 07/10/23 08/29/23 History amoxicillin 500 mg tablet 2,000 mg PO UD PRN prior to dental 07/10/23 08/29/23 History procedures ergocalciferol (vitamin D2) 50,000 50,000 unit PO WK 07/10/23 08/29/23 History unit tablet magnesium 1 tab PO QAM 07/10/23 08/29/23 History vyckfbae-bdx-gkejzz 5 mg-zeaxanth 1 cap PO QAM 07/10/23 08/29/23 History 1 mg-bilberry 7.5 mg-herbal capsule (Macular Health Formula) Wheeled Walker #1 ea 08/11/23 Rx acetaminophen 500 mg tablet 1,000 mg (2 x 500 mg) PO TID pain 08/16/23 08/29/23 Rx (Tylenol Extra Strength) 30 days #180 tabs aspirin 81 mg tablet,delayed 81 mg PO BID 45 days #90 tabs 08/16/23 08/29/23 Rx release (Amaris Low Dose Aspirin) ondansetron 4 mg disintegrating 4 mg PO Q8 PRN nausea #20 tabs 08/16/23 08/29/23 Rx tablet sennosides 8.6 mg tablet (Senokot) 8.6 mg PO BID prevent constipation 08/16/23 08/29/23 Rx 14 days #28 tabs Patient History Medical History Encounter for pre-operative examination Arthritis of left hip Osteoarthritis Bilateral knees, left hip History of colorectal cancer diagnosed 1997--s/p partial colon resection, chemo/radiation History of COVID-2020--mild symptoms, no symptoms now History of postoperative nausea and vomiting Surgical History History of benign breast biopsy History of total hysterectomy with bilateral salpingo-oophorectomy (BSO) History of total right hip replacement History of colonoscopy History of cholecystectomy History of colon resection 1997 History of tooth extraction all teeth removed History of bilateral cataract extraction Family History Other No family history of adverse response to anesthesia Social History Smoking Status: Never smoker Second Hand Exposure: No; Do You Dip or Chew Tobacco: No; Hx Alcohol Use: No Hx Substance Use: No Preferred Language: Slovenian Communication Ability: Effective Preparation Supervisor Freezing Required: No Beliefs That Will Affect Care: None Current Living Situation: Alone Other Information That Helps Us Care for You: No Feels Safe at Home: Yes Safety Concerns: Feels Safe At This Time Assistive Devices: Cane, Denture - Upper, Denture - Lower and Glasses Review of Systems Review of Systems: All systems reviewed & are unremarkable except as noted in HPI & below Physical Exam Constitutional: WD/WN, vitals as above cooperative Neck: trachea midline, no thyromegaly Respiratory: normal respiratory effort, lungs clear to auscultation Cardiovascular: RRR, no murmur, no edema Gastrointestinal (Abdomen): normal bowel sounds, soft, nontender, no hepatosplenomegaly Results & Data Vital Signs (Past 12 Hours) Vital Signs Pulse Pulse Resp BP Pulse Ox Pulse Ox O2 Del Method 08/30/23 08:32 Room Air 08/30/23 08:12 92 H 23 147/77 H 97 Room Air 08/30/23 06:58 74 08/30/23 06:42 78 18 113/70 97 Room Air 08/30/23 05:00 98 08/30/23 05:00 77 18 130/77 98 Room Air 08/30/23 04:00 88 18 130/77 98 Room Air 08/30/23 01:00 88 16 97 Room Air 08/30/23 00:05 85 08/29/23 23:00 90 18 105/85 98 Room Air O2 Del Method 08/30/23 08:32 08/30/23 08:12 08/30/23 06:58 08/30/23 06:42 08/30/23 05:00 Room Air 08/30/23 05:00 08/30/23 04:00 08/30/23 01:00 08/30/23 00:05 08/29/23 23:00 Laboratory Results 08/30/23 08/29/23 08/29/23 Range/Units 07:04 Unknown 16:30 WBC 9.87 (4.8-10.8) K/ul RBC 3.10 L (4.20-5.40) M/uL Hgb 9.0 L (12.0-16.0) g/dl Hct 26.9 L (37.0-47.0) % MCV 86.8 (80.0-100.0) fL MCH 29.0 (25.0-34.0) pg MCHC 33.5 (32.0-36.0) g/dL RDW Std Deviation 38.7 (36.4-46.3) fL RDW Coeff of Velasquez 12.4 (11.5-14.5) % Plt Count 446 H (130-400) K/uL MPV 8.3 L (9.4-12.4) fL Immature Gran % (Auto) 0.8 % Neut % (Auto) 75.5 % Lymph % (Auto) 13.5 % [place] % (Auto) 7.3 % Eos % (Auto) 2.4 % Baso % (Auto) 0.5 % Neut # (Auto) 7.45 H (1.40-6.50) K/uL Lymph # (Auto) 1.33 (1.20-3.40) K/uL [place] # (Auto) 0.72 H (0.11-0.59) K/uL Eos # (Auto) 0.24 (0.00-0.50) K/uL Baso # (Auto) 0.05 (0.00-0.20) K/uL Immature Gran # (Auto) 0.08 (0.01-0.20) K/uL PT (9.0-12.0) Seconds INR (0.9-1.1) Sodium 135 L (136-145) mmol/L Potassium 3.6 (3.5-5.1) mmol/L Chloride 100 (98-107) mmol/L Carbon Dioxide 31 (21-32) mmol/L Anion Gap 4 (3-11) BUN 17 (6-23) mg/dl Creatinine 0.48 L (0.6-1.2) mg/dl Est Cr Clr Drug Dosing 84.1 Est GFR ( Amer) 107.4 ml/min Est GFR (Non-Af Amer) 92.6 ml/min BUN/Creatinine Ratio 35.4 H (10-20) Glucose 103 H (70-99(Fasting)) mg/dl Lactate 1.2 (0.4-2.0) mmol/L Calcium 8.3 L (8.6-10.3) mg/dl Magnesium 1.9 (1.7-2.4) mg/dl Total Bilirubin (0.2-1.0) mg/dl AST (13-39) U/L ALT (7-52) U/L Alkaline Phosphatase (34-104) U/L Troponin I High Sens (0-14) pg/ml Total Protein (6.0-8.3) gm/dl Albumin (3.4-5.0) gm/dl Globulin (2.5-4.0) gm/dl Albumin/Globulin Ratio (0.9-2) Lipase (11-82) U/L Urine Color Yellow Urine Appearance Clear (Clear) Urine pH 8.0 H (4.5-7.5) Ur Specific [place] 1.038 H (1.000-1.030) Urine Protein Negative (Negative) Urine Glucose (UA) Negative (Negative) Urine Ketones Trace H (Negative) Urine Blood Negative (Negative) Urine Nitrite Negative (Negative) Urine Bilirubin Negative (Negative) Urine Urobilinogen Negative (Negative) Ur Leukocyte Esterase 1+ H (Negative) Urine WBC (Auto) 0-5 (0-5) /hpf Urine RBC (Auto) 0-2 (0-2) /hpf U Hyaline Cast (Auto) 0-2 (0-2) /lpf U Epithel Cells (Auto) 3-5 H (0-2) /hpf Urine Bacteria (Auto) None Seen (None Seen) Adenovirus (PCR) Not Detected (NotDetected) B. pertussis DNA (PCR) Not Detected (NotDetected) B.parapertussis DNA PCR Not Detected (NotDetected) C. pneumoniae DNA (PCR) Not Detected (NotDetected) Coronavirus OC43 (PCR) Not Detected (NotDetected) Coronavirus HKU1 (PCR) Not Detected (NotDetected) Coronavirus 229E (PCR) Not Detected (NotDetected) SARS-CoV-2 (PCR) Not Detected (NotDetected) Coronavirus NL63 (PCR) Not Detected (NotDetected) Human Metapneumovir PCR Not Detected (NotDetected) Influenza Type A (PCR) Not Detected (NotDetected) Influenza Type B (PCR) Not Detected (NotDetected) M. pneumoniae (PCR) Not Detected (NotDetected) Parainfluenza 1 (PCR) Not Detected (NotDetected) Parainfluenza 2 (PCR) Not Detected (NotDetected) Parainfluenza 3 (PCR) Not Detected (NotDetected) Parainfluenza 4 (PCR) Not Detected (NotDetected) RSV (PCR) Not Detected (NotDetected) Entero/Rhino (PCR) Not Detected (NotDetected) 08/29/23 Range/Units 15:52 WBC 13.22 H (4.8-10.8) K/ul RBC 3.71 L (4.20-5.40) M/uL Hgb 10.8 L (12.0-16.0) g/dl Hct 31.9 L (37.0-47.0) % MCV 86.0 (80.0-100.0) fL MCH 29.1 (25.0-34.0) pg MCHC 33.9 (32.0-36.0) g/dL RDW Std Deviation 37.5 (36.4-46.3) fL RDW Coeff of Velasquez 12.1 (11.5-14.5) % Plt Count 527 H (130-400) K/uL MPV 8.4 L (9.4-12.4) fL Immature Gran % (Auto) 0.7 % Neut % (Auto) 76.4 % Lymph % (Auto) 13.3 % [place] % (Auto) 7.5 % Eos % (Auto) 1.7 % Baso % (Auto) 0.4 % Neut # (Auto) 10.11 H (1.40-6.50) K/uL Lymph # (Auto) 1.76 (1.20-3.40) K/uL [place] # (Auto) 0.99 H (0.11-0.59) K/uL Eos # (Auto) 0.22 (0.00-0.50) K/uL Baso # (Auto) 0.05 (0.00-0.20) K/uL Immature Gran # (Auto) 0.09 (0.01-0.20) K/uL PT 10.8 (9.0-12.0) Seconds INR 1.0 (0.9-1.1) Sodium 130 L (136-145) mmol/L Potassium 3.7 (3.5-5.1) mmol/L Chloride 92 L (98-107) mmol/L Carbon Dioxide 29 (21-32) mmol/L Anion Gap 9 (3-11) BUN 24 H (6-23) mg/dl Creatinine 0.45 L (0.6-1.2) mg/dl Est Cr Clr Drug Dosing Not Reportable Est GFR ( Amer) 109.7 ml/min Est GFR (Non-Af Amer) 94.6 ml/min BUN/Creatinine Ratio 53.3 H (10-20) Glucose 124 H (70-99(Fasting)) mg/dl Lactate (0.4-2.0) mmol/L Calcium 9.0 (8.6-10.3) mg/dl Magnesium 1.9 (1.7-2.4) mg/dl Total Bilirubin 0.4 (0.2-1.0) mg/dl AST 16 (13-39) U/L ALT 19 (7-52) U/L Alkaline Phosphatase 69 (34-104) U/L Troponin I High Sens 3.5 (0-14) pg/ml Total Protein 6.3 (6.0-8.3) gm/dl Albumin 3.8 (3.4-5.0) gm/dl Globulin 2.5 (2.5-4.0) gm/dl Albumin/Globulin Ratio 1.5 (0.9-2) Lipase 30 (11-82) U/L Urine Color Urine Appearance (Clear) Urine pH (4.5-7.5) Ur Specific [place] (1.000-1.030) Urine Protein (Negative) Urine Glucose (UA) (Negative) Urine Ketones (Negative) Urine Blood (Negative) Urine Nitrite (Negative) Urine Bilirubin (Negative) Urine Urobilinogen (Negative) Ur Leukocyte Esterase (Negative) Urine WBC (Auto) (0-5) /hpf Urine RBC (Auto) (0-2) /hpf U Hyaline Cast (Auto) (0-2) /lpf U Epithel Cells (Auto) (0-2) /hpf Urine Bacteria (Auto) (None Seen) Adenovirus (PCR) (NotDetected) B. pertussis DNA (PCR) (NotDetected) B.parapertussis DNA PCR (NotDetected) C. pneumoniae DNA (PCR) (NotDetected) Coronavirus OC43 (PCR) (NotDetected) Coronavirus HKU1 (PCR) (NotDetected) Coronavirus 229E (PCR) (NotDetected) SARS-CoV-2 (PCR) (NotDetected) Coronavirus NL63 (PCR) (NotDetected) Human Metapneumovir PCR (NotDetected) Influenza Type A (PCR) (NotDetected) Influenza Type B (PCR) (NotDetected) M. pneumoniae (PCR) (NotDetected) Parainfluenza 1 (PCR) (NotDetected) Parainfluenza 2 (PCR) (NotDetected) Parainfluenza 3 (PCR) (NotDetected) Parainfluenza 4 (PCR) (NotDetected) RSV (PCR) (NotDetected) Entero/Rhino (PCR) (NotDetected) Diagnostic Findings Abdomen/Pelvis CT 08/29/23 15:45 CT SCAN OF THE ABDOMEN AND PELVIS WITH IV CONTRAST CLINICAL HISTORY: Nausea. Generalized abdominal pain. COMPARISON STUDY: No priors. TECHNIQUE: Following the IV administration of 93 cc of Optiray 320, CT scan of the abdomen and pelvis is performed from the lung bases to the proximal femora. Images are reviewed in the axial, sagittal, and coronal planes. IV contrast was administered without complication. A dose lowering technique was utilized adhering to the principles of ALARA. CT DOSE: 726.85 mGy.cm FINDINGS: Lung bases: The heart is mildly enlarged and without pericardial effusion. There is bibasilar scarring/atelectasis. No airspace consolidation or pleural effusion is identified. Liver: The contrast-enhanced liver is normal in size, contour, and attenuation. There is no intrahepatic biliary ductal dilatation. The hepatic veins and portal veins are patent. Small hepatic cysts measure up to 12 mm Additional small hepatic cysts measure up to 12 mm scattered subcentimeter hepatic hypodensities likely represent cysts but are too small for definitive characterization. Gallbladder: Surgically absent noting clips in the gallbladder fossa. Spleen: Normal in size and attenuation. Pancreas: The pancreas is a trophic. 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 Adrenal glands: Unremarkable. Kidneys: The contrast enhanced kidneys are normal in size and without hydronephrosis. The kidneys enhance symmetrically. There is a 3.4 cm left upper pole renal cyst. Additional subcentimeter cortical hypodensities also likely represent cysts but are too small for definitive characterization. There are at least 6 tiny nonobstructing right renal calculi which measure up to 3 mm. No ureteral stone is seen. Abdominal vasculature: The abdominal aorta is normal in course and caliber noting moderate atherosclerotic calcification. Stomach and bowel: There is wall thickening and edema of the distal stomach/proximal duodenum with surrounding infiltration. There is apparent mucosal discontinuity inferiorly with a small outpouching of fluid seen on axial image #123. This measures up to 1.5 cm. Findings are suspicious for ulcer disease with a contained perforation. There are mildly enlarged adjacent lymph nodes which measure up to 1.3 cm as seen on image #130. There is a serpiginous fluid collection along the superior aspect of the gastroduodenal junction extending towards the right ventral abdominal wall seen on images #98-107. This measures approximately 2.5 x 2 cm in aggregate dimension. There is fnyk-yd-dghlnlar colonic fecal retention. No bowel obstruction is seen. The appendix is not identified and reportedly surgically absent. Peritoneum: There is no intraperitoneal free air or abdominal ascites. There is a small fat-containing umbilical hernia. Lymphadenopathy: None. Pelvic viscera: Evaluation of the pelvis is degraded by streak artifact from bilateral hip arthroplasties. The bladder is normal as visualized. The uterus is surgically absent. No adnexal lesion is seen. Skeletal structures: The skeletal structures are osteopenic. There is mild lumbosacral spondylosis. 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 No lytic or blastic lesions are seen. Bilateral hip arthroplasties are in place. There is significant edema and fluid overlying the left hip arthroplasty with skin clips in place. A fluid collection lateral to the greater trochanter seen on axial image #285 measures approximately 8 x 2 x 2 cm it is likely recently postoperative seroma/hematoma. IMPRESSION: 1. There is wall thickening and edema of the distal stomach/proximal duodenum with surrounding inflammation. Additionally, there is apparent mucosal discontinuity inferiorly with a small outpouching of fluid. Findings are suspicious for ulcer disease with a contained perforation. Endoscopy is recommended for further assessment and to exclude underlying mass lesion. 2. Additionally, there is a serpiginous fluid collection or tract which extends from the gastroduodenal junction anteriorly to the ventral peritoneum as above. This could represent a developing fistula or abscess. 3. No intraperitoneal free air is seen. 4. Right-sided nephrolithiasis 5. A left hip arthroplasty is in place, with expected overlying postsurgical change. A serpiginous fluid collection in the lateral subcutaneous soft tissues at this site likely resents a postoperative seroma/hematoma. The sterility of this fluid cannot be assessed by imaging and clinical correlation will be required. 6. Additional findings as above. ACT 112: Negative or not required by law. Electronically signed by: Daryl Garcia M.D. 08/29/2023 7:28 PM Abdomen/Pelvis CT 08/29/23 19:55 Exam(s): CT ABDOMEN + PELVIS With Contrast Oral - High Density Amt: 30 cc gastro EXAM: CT Abdomen and Pelvis With Intravenous Contrast CLINICAL HISTORY: Reason for exam: concern for possible perforation. TECHNIQUE: Axial computed tomography images of the abdomen and pelvis with intravenous contrast. CTDI is 15 mGy and DLP is 678 mGy-cm. Automated exposure control was utilized for the study. A dose lowering technique was utilized adhering to the principles of ALARA. CONTRAST: Patient received 30 cc gastro of Oral - High Density contrast COMPARISON: August 29, 2023 at 1735 hrs. FINDINGS: Lung bases: Unremarkable. No mass. No consolidation. ABDOMEN: Liver: 2.4 cm cyst along the anterior margin of the liver near the falciform ligament. There is a punctate calcification within a thin septation. No follow-up is required. Gallbladder and bile ducts: The gallbladder has been removed. No biliary duct dilation is seen. Pancreas: Unremarkable. No mass. No ductal dilation. Spleen: Unremarkable. No splenomegaly. Adrenals: Unremarkable. No mass. Kidneys and ureters: 3 cm simple cyst in the left kidney. No follow- up is required. No hydronephrosis. Stomach and bowel: There is oral contrast within the stomach, duodenum, small bowel, and colon. There is wall thickening and indistinctness of the medial wall of the first and second portions of the duodenum suspicious for duodenal ulcer disease, less likely neoplasm. No contrast extravasation is seen to indicate perforation. No obstruction. PELVIS: Appendix: No findings to suggest acute appendicitis. Bladder: Unremarkable. No mass. Reproductive: Unremarkable as visualized. ABDOMEN and PELVIS: Intraperitoneal space: The uterus is absent. No free fluid is seen in the pelvis. No free air. Bones/joints: Metallic artifact from bilateral hip arthroplasties. No acute fracture or dislocation is seen. Mild to moderate degenerative changes throughout the spine. No acute fracture or subluxation is seen. There is a unilateral left pars defect at L5 without spondylolisthesis. Soft tissues: Unremarkable. Vasculature: The abdominal aorta is calcified but nondilated. Lymph nodes: Unremarkable. No enlarged lymph nodes. Other findings: No fistulous tract is identified. IMPRESSION: There is oral contrast within the stomach, duodenum, small bowel, and colon. There is wall thickening and indistinctness of the medial wall of the first and second portions of the duodenum suspicious for duodenal ulcer disease, less likely neoplasm or duodenitis. No contrast extravasation is seen to indicate perforation. No fistulous tract is identified. Electronically signed by: Judd Briggs MD 08/29/23 22:29 PM
[2023-08-30 15:18] LABS: Hematocrit (blood only) 25.7 % (37.0-47.0); Hemoglobin 8.6 g/dl (12.0-16.0)
[2023-08-30 21:58] LABS: Hematocrit (blood only) 26.2 % (37.0-47.0); Hemoglobin 8.8 g/dl (12.0-16.0)
[2023-08-31 06:09] LABS: Hematocrit (blood only) 25.1 % (37.0-47.0); Hemoglobin 8.3 g/dl (12.0-16.0); Mean Corpuscular Hemoglobin 28.8 pg (25.0-34.0); Mean Corpuscular Hgb Conc 33.1 g/dL (32.0-36.0); Mean Corpuscular Volume 87.2 fL (80.0-100.0); Mean Platelet Volume 8.3 fL (9.4-12.4); Platelet Count 404 K/uL (130-400); RDW Coefficient of Variation 12.4 % (11.5-14.5); RDW Standard Deviation 39.7 fL (36.4-46.3); Red Blood Count 2.88 M/uL (4.20-5.40); White Blood Count 6.74 K/ul (4.8-10.8)
[2023-08-31 06:31] LABS: BUN Creatinine Ratio 18.8 (10-20); Creatinine Clr Calc Pharmacy 84.1 ml/min; Est GFR (African American) 107.4 ml/min; Est GFR (Non-African American) 92.6 ml/min; Magnesium 1.8 mg/dl (1.7-2.4); Phosphorus 3.6 mg/dl (2.5-4.9); Potassium 3.4 mmol/L (3.5-5.1)
--- NOTE | 2023-08-31 07:49 | Electrocardiogram Report ---
Test Reason : Blood Pressure : / mmHG Vent. Rate : 096 BPM Atrial Rate : 096 BPM P-R Int : 168 ms QRS Dur : 070 ms QT Int : 340 ms P-R-T Axes : 059 033 053 degrees QTc Int : 429 ms Normal sinus rhythm Normal ECG When compared with ECG of 27-JUL-2023 12:36, No significant change was found Confirmed by Aureliano Headley ([id number]) on 08/31/2023 7:48:58 AM Referred By: REFERRED SELF Confirmed By:Aureliano Headley
--- NOTE | 2023-08-31 07:51 | Hospitalist Progress Note ---
Date of Service August 31, 2023 Assessment & Plan (1) Abdominal pain: Plan: 78 yo F with hx of prediabetes, cyst of pancreas, recurrent UTI, cystocele, vitiligo, degenerative disc disease, osteoporosis, history of colon cancer and status post partial colectomy comes because of abdominal pain and constipation and found to have duodenal ulcer. Patient recently had left hip surgery. She was taking pain medication. Was constipated. But even after stopping the pain medication she did not move her bowels. She had a small loose stool today. She was having epigastric abdominal pain. Was feeling nauseous. Not able to eat much. In the ER initial CT scan there was question of duodenal ulcer with contained perforation and possible fistula. But CT scan with contrast just showed duodenal ulcer but no perforation or fistula seen. Currently resting comfortably and hemodynamically stable. Denies any headache. No dizziness. No blurred vision. No runny nose or sore throat. No cough. No chest pain or shortness of breath. States stools has been black. Micturating okay. Patient recently had left hip arthroplasty on August 18, 2023 and she has been on aspirin for DVT prophylaxis since then. Abdominal pain CT scan with contrast showing possible duodenal ulcer disease initial CT scan without contrast was there was suspicious for ulcer disease with contained perforation and also possible developing fistula or abscess on IV Protonix, IV fluids. And empiric Zosyn. Hold aspirin GI consulted and plan for EGD today (08/31/2023) questionable black stools hemoglobin 10.8 hemoglobin was 11 on 08/19/2023 will follow stool for Hemoccult and repeat labs Now repeat Hgb 8.3 Recent left hip arthroplasty follow-up with orthopedics was placed on aspirin 81 mg p.o. twice daily for DVT prophylaxis which is held for now DVT prophylaxis - SCDs for now disposition - med/tele full code Admission and Anticipated Discharge Date Admission Date: August 30, 2023 Subjective Pt seen in follow up of anemia, GI bleed Hx of dark stool but now changed to BRB in stool Concern for PUD - had abnormal CT imaging GI consulted - Plan for EGD today Recent hx of hip surgery, was on ASA bid for DVT ppx Currently laying in bed in NAD, no fever, chills, chest pain, shortness of breath, no abd. pain. Family (sister and daughter) present at the bedside. Review of Systems Review of Systems: All systems reviewed & are unremarkable except as noted in Subjective Physical Exam Physical Exam: General- WD/WN el martha F in NAD He ad- atraumatic E yes- PERRL. Neck- supple, no JVD. Lungs- clear to au scultation no whee zing or crackles. Heart- regular ra te and rhythm; no murmur Abdomen- n ormal bowel sounds , soft, nontender, no distension. E xtremities- no pre tibial edema, no e rythema seen. Left hip surgery site no drainage or janae thema seen. staple s intact. Neuro- alert, oriented P ERRL, no facial pa lsy; no dysarthria ; moves extremitie s. Results & Data Results & Data Vital Signs (Past 12 Hours) Vital Signs Temp Pulse Pulse Resp BP Pulse Ox O2 Del Method 08/31/23 07:29 79 08/31/23 07:29 36.8 C 83 15 153/79 H 97 Room Air 08/31/23 02:55 36.8 C 65 18 131/72 97 Room Air 08/30/23 23:24 36.7 C 84 18 136/75 98 Room Air 08/30/23 21:54 74 08/30/23 20:09 36.6 C 18 118/71 97 Room Air Laboratory Results 08/31/23 08/30/23 08/30/23 Range/Units 05:35 21:03 15:06 WBC 6.74 (4.8-10.8) K/ul RBC 2.88 L (4.20-5.40) M/uL Hgb 8.3 L 8.8 L 8.6 L (12.0-16.0) g/dl Hct 25.1 L 26.2 L 25.7 L (37.0-47.0) % MCV 87.2 (80.0-100.0) fL MCH 28.8 (25.0-34.0) pg MCHC 33.1 (32.0-36.0) g/dL RDW Std Deviation 39.7 (36.4-46.3) fL RDW Coeff of Velasquez 12.4 (11.5-14.5) % Plt Count 404 H (130-400) K/uL MPV 8.3 L (9.4-12.4) fL Sodium 138 (136-145) mmol/L Potassium 3.4 L (3.5-5.1) mmol/L Chloride 105 (98-107) mmol/L Carbon Dioxide 28 (21-32) mmol/L Anion Gap 5 (3-11) BUN 9 (6-23) mg/dl Creatinine 0.48 L (0.6-1.2) mg/dl Est Cr Clr Drug Dosing 84.1 ml/min Est GFR ( Amer) 107.4 ml/min Est GFR (Non-Af Amer) 92.6 ml/min BUN/Creatinine Ratio 18.8 (10-20) Glucose 105 H (70-99(Fasting)) mg/dl Calcium 8.0 L (8.6-10.3) mg/dl Phosphorus 3.6 (2.5-4.9) mg/dl Magnesium 1.8 (1.7-2.4) mg/dl Medications Administered Current Inpatient Medications Sodium Chloride (Nss) 1,000 mls @ 100 mls/hr IV .Q10H [facility] Stop: 09/29/23 03:20 Last Admin: 08/31/23 04:59 Dose: 100 mls/hr Pantoprazole Sodium 40 mg/ (Syringe) 10 mls @ 5 mls/min IV BID JULIAN Stop: 09/29/23 08:59 Last Admin: 08/30/23 19:28 Dose: 5 mls/min Piperacillin Sod/Tazobactam (Sod 4.5 gm/ Dextrose) 100 mls @ 25 mls/hr IV Q8H [facility]; Protocol Stop: 09/09/23 03:59 Last Admin: 08/31/23 04:59 Dose: 25 mls/hr Sodium Chloride (Nss) 500 mls @ 15 mls/hr IV .Q24H JULIAN Stop: 09/01/23 07:29 Potassium Chloride (K Micky / Wtr) 10 meq in 100 mls @ 100 mls/hr IV Q1H [facility] Stop: 08/31/23 09:59 Nitroglycerin (Nitroglycerin Sl 0.4 Mg/Tab Tab) 0.4 mg SL Q5M PRN PRN Reason: Chest Pain Stop: 09/29/23 03:20 Ondansetron HCl (Ondansetron Inj 2 Mg/Ml 2 Ml Vial) 4 mg IV Q6H PRN PRN Reason: Nausea Stop: 09/29/23 03:20
[2023-08-31] MEDS: POTASSIUM CHLORIDE / WTR 10 MEQ/100 ML PLCT IV SCH (09:42)
--- NOTE | 2023-08-31 10:16 | Gastroenterology Progress Note ---
Date of Service August 31, 2023 Assessment & Plan (1) BRBPR (bright red blood per rectum): Plan: 78 year old female admitted with melena, abd pain and now BRBPR initial CT concerning for PUD w/ contained perforation, however, repeat imaging with contrast showing wall thickening and indistinctness of the duodenum suspicious for duodenal ulcer disease without contrast extravasation to indicate perforation or fistulous tract. She is NPO for EGD evaluation. Please maintain NPO status. Hold any and all NSAIDS. Agree w/ IV PPI. Trend H&H. Transfuse PRN primary team. Docuement GI output. We appreciate assistance in the management of any serological abnormality and corrections to include: hemoglobin >7, INR <2, platelets >50,000, potassium levels >3.5 but <5.3, and sodium levels within 5 points of the reference range prior to endoscopic evaluation. Admission and Anticipated Discharge Date Admission Date: August 30, 2023 Supervising Physician Co-Signing Physician Notes I examined the patient and reviewed patient's chart , laboratory data and imaging studies. I agree with with assessment and plan of care as suggested by advanced practice provider. Recent melena, GI bleeding and anemia. Upper abdominal pain. Suspected gastric antral or duodenal ulcer on the recent CAT scan. On 08/29/2023 there was a concern of contained perforation as per CT scan appearance. Follow-up CT scan showed no evidence of extravasation. Abdominal pain has improved. The patient is scheduled for EGD today. Subjective Pt was seen and evaluated, chart reviewed. NPO for EGD this AM Endorses black stools x 1 week w/ change in bowels to BRB about 48 hours ago. Imaging reviewed showing wall thickening and indistinctness of the duodenum suspicious for duodenal ulcer disease, less likely neoplasm or duodenitis. No contrast extravasation is seen to indicate perforation. No fistulous tract is identified. Of note she is s/p total hip replacement about 2 weeks ago Review of Systems Review of Systems: All other findings negative except as noted in HPI. Physical Exam Constitutional: WD/WN, vitals as above Respiratory: normal respiratory effort, lungs clear to auscultation Cardiovascular: Rate/Rhythm: regular rate and regular rhythm Gastrointestinal (Abdomen): normal bowel sounds, soft, nontender, no hepatosplenomegaly Skin: no rashes, warm and dry Results & Data Results & Data Vital Signs (Past 12 Hours) Vital Signs Temp Pulse Pulse Resp BP Pulse Ox O2 Del Method 08/31/23 07:29 79 08/31/23 07:29 36.8 C 83 15 153/79 H 97 Room Air 08/31/23 02:55 36.8 C 65 18 131/72 97 Room Air 08/30/23 23:24 36.7 C 84 18 136/75 98 Room Air Laboratory Results 08/31/23 08/30/23 08/30/23 Range/Units 05:35 21:03 15:06 WBC 6.74 (4.8-10.8) K/ul RBC 2.88 L (4.20-5.40) M/uL Hgb 8.3 L 8.8 L 8.6 L (12.0-16.0) g/dl Hct 25.1 L 26.2 L 25.7 L (37.0-47.0) % MCV 87.2 (80.0-100.0) fL MCH 28.8 (25.0-34.0) pg MCHC 33.1 (32.0-36.0) g/dL RDW Std Deviation 39.7 (36.4-46.3) fL RDW Coeff of Velasquez 12.4 (11.5-14.5) % Plt Count 404 H (130-400) K/uL MPV 8.3 L (9.4-12.4) fL Sodium 138 (136-145) mmol/L Potassium 3.4 L (3.5-5.1) mmol/L Chloride 105 (98-107) mmol/L Carbon Dioxide 28 (21-32) mmol/L Anion Gap 5 (3-11) BUN 9 (6-23) mg/dl Creatinine 0.48 L (0.6-1.2) mg/dl Est Cr Clr Drug Dosing 84.1 ml/min Est GFR ( Amer) 107.4 ml/min Est GFR (Non-Af Amer) 92.6 ml/min BUN/Creatinine Ratio 18.8 (10-20) Glucose 105 H (70-99(Fasting)) mg/dl Calcium 8.0 L (8.6-10.3) mg/dl Phosphorus 3.6 (2.5-4.9) mg/dl Magnesium 1.8 (1.7-2.4) mg/dl PG Care Time/CCT Total # of Minutes Spent Total Time Spent with Patient: Total time spent is greater than 50% in coordination of care (as documented) at patient's floor/unit and/or counseling patient: Coding Level of Care Code None Diagnoses BRBPR (bright red blood per rectum) K62.5
--- NOTE | 2023-08-31 14:39 | Anesthesiology Consultation ---
Date of Service August 31, 2023 Assessment & Plan Chart Review Chart Review: Acceptable Risk for Surgery and Patient NOT seen in Pre Admission Testing Consults Requested none ASA ASA3 Proposed Anesthesia Anesthesia Type: MAC Risk / Benefits Reviewed With: PT / POA / Parent / Guardian, Accepts Plan and Informed Consent Obtained History Surgery Operation Date: 08/31/23 16:45 Proposed Procedures p Esophagogastroduodenoscopy Mehreen Verde MD Height/Weight Height: 5 ft 5 in Weight: 59.1 kg Allergies Allergy/AdvReac Type Severity Reaction Status Date / Time Sulfa (Sulfonamide Allergy Intermediate HIVES Verified 08/18/23 07:13 Antibiotics) Medications Home Medications Medication Instructions Recorded Confirmed Last Taken alendronate 70 mg tablet (Fosamax) 70 mg PO WK 07/10/23 08/29/23 08/16/23 08:00 amoxicillin 500 mg tablet 2,000 mg PO UD PRN prior to dental 07/10/23 08/29/23 Unknown procedures ergocalciferol (vitamin D2) 50,000 50,000 unit PO WK 07/10/23 08/29/23 08/13/23 unit tablet magnesium 1 tab PO QAM 07/10/23 08/29/23 08/29/23 [id number] 5 mg-zeaxanth 1 cap PO QAM 07/10/23 08/29/23 08/29/23 1 mg-bilberry 7.5 mg-herbal capsule ([employer] Formula) Wheeled Walker #1 ea 08/11/23 Unknown acetaminophen 500 mg tablet 1,000 mg (2 x 500 mg) PO TID pain 08/16/23 08/29/23 08/29/23 (Tylenol Extra Strength) 30 days #180 tabs aspirin 81 mg tablet,delayed 81 mg PO BID 45 days #90 tabs 08/16/23 08/29/23 08/29/23 release ([employer] Low Dose Aspirin) ondansetron 4 mg disintegrating 4 mg PO Q8 PRN nausea #20 tabs 08/16/23 08/29/23 Unknown tablet sennosides 8.6 mg tablet (Senokot) 8.6 mg PO BID prevent constipation 08/16/23 08/29/23 08/29/23 14 days #28 tabs Active Medications Generic Name Dose Route Start Last Admin Trade Name Freq PRN Reason Stop Dose Admin Sodium Chloride 1,000 mls @ 100 mls/hr 08/30/23 03:21 08/31/23 04:59 Nss IV 09/29/23 03:20 100 mls/hr .Q10H JULIAN Administration Pantoprazole Sodium 40 mg/ 10 mls @ 5 mls/min 08/30/23 09:00 08/31/23 10:51 Syringe IV 09/29/23 08:59 5 mls/min BID JULIAN Administration Piperacillin Sod/Tazobactam 100 mls @ 25 mls/hr 08/30/23 04:00 08/31/23 12:29 Sod 4.5 gm/ Dextrose IV 09/09/23 03:59 25 mls/hr Q8H JULIAN Administration Protocol NPO Date Last Intake of Fluids: 08/30/23 Time Last Intake of Fluids: 18:00 Date Last Intake of Solids: 08/29/23 Past Medical History Medical History Encounter for pre-operative examination Arthritis of left hip Osteoarthritis Bilateral knees, left hip History of colorectal cancer diagnosed 1997--s/p partial colon resection, chemo/radiation 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, no symptoms now History of postoperative nausea and vomiting Exercise / Class Metabolic Activity II 4-5 Yardwork/Stairs/Walk up hill Past Family History Family History Other No family history of adverse response to anesthesia Past Surgical History Surgical History History of benign breast biopsy History of total hysterectomy with bilateral salpingo-oophorectomy (BSO) History of total right hip replacement History of colonoscopy History of cholecystectomy History of colon resection 1997 History of tooth extraction all teeth removed History of bilateral cataract extraction Past Anesthesia History No Hx of Anesthesia Complications and No Family Hx of Anesthesia Complications History of PONV No Hx of PONV and No Hx of Motion Sickness Social History Smoking Status: Never smoker Do You Dip or Chew Tobacco: No Hx Alcohol Use: Yes Alcohol type: wine alcohol intake frequency: holidays/special occasions only Hx Substance Use: No substance use type: does not use Physical Exam Vital Signs Last Vital Signs Temp 36.9 C 08/31/23 14:13 Pulse 85 08/31/23 14:13 Resp 16 08/31/23 14:13 BP 155/80 H 08/31/23 14:13 Pulse Ox 97 08/31/23 14:13 O2 Del Method Room Air 08/31/23 14:13 ENMT Mouth: no dentition abnormality Thyromental Distance: > or= 3.5 Finger Breadths Mallampati Class: II Neck normal visual inspection Respiratory normal respiratory effort Auscultation: lungs clear to auscultation bilaterally Cardiovascular Rate/Rhythm: regular rate and regular rhythm Psychiatric Orientation: alert Testing Laboratory Results 08/31/23 05:35 08/31/23 05:35 PT 10.8 Seconds (9.0-12.0) 08/29/23 15:52 INR 1.0 (0.9-1.1) 08/29/23 15:52 Urine Color Yellow 08/29/23 Unknown Urine Appearance Clear (Clear) 08/29/23 Unknown Urine pH 8.0 (4.5-7.5) H 08/29/23 Unknown Ur Specific [place] 1.038 (1.000-1.030) H 08/29/23 Unknown Urine Protein Negative (Negative) 08/29/23 Unknown Urine Glucose (UA) Negative (Negative) 08/29/23 Unknown Urine Ketones Trace (Negative) H 08/29/23 Unknown Urine Nitrite Negative (Negative) 08/29/23 Unknown Ur Leukocyte Esterase 1+ (Negative) H 08/29/23 Unknown Urine WBC (Auto) 0-5 /hpf (0-5) 08/29/23 Unknown Urine RBC (Auto) 0-2 /hpf (0-2) 08/29/23 Unknown U Hyaline Cast (Auto) 0-2 /lpf (0-2) 08/29/23 Unknown U Epithel Cells (Auto) 3-5 /hpf (0-2) H 08/29/23 Unknown Urine Bacteria (Auto) None Seen (None Seen) 08/29/23 Unknown
--- NOTE | 2023-08-31 15:11 | GI REPORT ---
[facility] Patient: WES SILVESTRE : 1945 Sex at : Female Age: 78 Years Procedure: Upper GI endoscopy Date: 08/31/2023 Attending Physician: Reynaldo Verde MD Referring MD: Dinesh Garcia Md Indications: - Epigastric abdominal pain - Recent gastrointestinal bleeding Medications: - Monitored Anesthesia Care Complications: - No immediate complications. Estimated Blood Loss: - Estimated blood loss: none. Procedure: - The egd scope was introduced through the mouth and advanced to the second part of the duodenum. - The upper GI endoscopy was accomplished without difficulty. - The patient tolerated the procedure well. Findings: - The examined esophagus was normal. - The entire examined stomach was normal. Biopsies were taken with a cold forceps for histology. Biopsies were taken with a cold forceps for [Purpose]. - Two non-bleeding cratered duodenal ulcers with a clean ulcer base (Travon Class III) were found in the duodenal bulb. The largest lesion was 20 mm in largest dimension. Impression: - Normal esophagus. - Normal stomach. Biopsied. - Non-bleeding duodenal ulcers with a clean ulcer base (Travon Class III). Recommendation: - Await pathology results. - Observe patient's clinical course. Procedure Code(s): - 91130, Esophagogastroduodenoscopy, flexible, transoral; with biopsy, single or multiple Diagnosis Code(s): - R10.13, Epigastric pain - K92.2, Gastrointestinal hemorrhage, unspecified - K26.9, Duodenal ulcer, unspecified as acute or chronic, without hemorrhage or perforation CPT(R) - 2023 copyright [employer]. All Rights Reserved. The CPT codes, CCI edits and ICD codes generated are intended as suggestions and were generated based on input data. These codes are preliminary and upon digital marketing analyst review may be revised to meet current compliance and payer requirements. The provider is responsible for the final determination of appropriate codes, and modifiers. Reynaldo Verde M.D. This document has been electronically signed. Note Initiated:08/31/2023 Note Completed:08/31/2023 3:10 PM \\[email or web address]\Results\[id number]
--- NOTE | 2023-08-31 15:13 | Communication Note ---
Date of Service: August 31, 2023 EGD showed large duodenal ulcer with clean base and no stigmata of recent bleeding. Biopsies from the stomach antrum were obtained for Helicobacter pylori. Recommendations: #1. Okay to start clear liquids, advance diet as tolerated. #2. Continue IV PPI, okay to change to oral ppi in 24 hours. # 3. Awaiting antral biopsies. Treat if positive for Helicobacter pylori. #4. Monitor CBC.
--- NOTE | 2023-08-31 15:18 | Anesthesiology Progress Note ---
Date of Service August 31, 2023 Anesthesia Post Procedure Vital Signs Vital Signs: Temp Pulse Pulse Pulse Resp BP BP 08/31/23 15:07 66 18 95/49 L 08/31/23 14:13 36.9 C 85 16 155/80 H 08/31/23 11:05 36.8 C 78 14 133/79 08/31/23 07:29 79 08/31/23 07:29 36.8 C 83 15 153/79 H 08/31/23 02:55 36.8 C 65 18 131/72 08/30/23 23:24 36.7 C 84 18 136/75 08/30/23 21:54 74 08/30/23 20:09 36.6 C 18 118/71 08/30/23 16:37 36.5 C 87 16 140/84 08/30/23 16:34 79 Pulse Ox O2 Del Method 08/31/23 15:07 96 Room Air 08/31/23 14:13 97 Room Air 08/31/23 11:05 97 Room Air 08/31/23 07:29 08/31/23 07:29 97 Room Air 08/31/23 02:55 97 Room Air 08/30/23 23:24 98 Room Air 08/30/23 21:54 08/30/23 20:09 97 Room Air 08/30/23 16:37 96 Room Air 08/30/23 16:34 Transfer of Care Handoff Completed per policy Notes Mental Status: alert / awake / arousable and participated in evaluation Patient Amnestic to Procedure: Yes Nausea / Vomiting: adequately controlled Pain: adequately controlled Airway Patency, RR, SpO2: stable & adequate BP & HR: stable & adequate Hydration State: stable & adequate Anesthetic Complications: no major complications apparent and Pt Satisfied with anesthetic care
[2023-08-31] MEDS: SODIUM CHLORIDE 0.9% 500 ML IV SCH (16:02)
[2023-08-31] MEDS: PROPOFOL IV EMULSION 10 MG/ML 20 ML VIAL IV ONE ×2 (16:44)
[2023-08-31] MEDS: LIDOCAINE 2% 2 ML VIAL/AMP(20MG/ML) INFIL ONE ×2 (16:44)
[2023-09-01 05:51] LABS: Hematocrit (blood only) 25.7 % (37.0-47.0); Hemoglobin 8.6 g/dl (12.0-16.0); Mean Corpuscular Hemoglobin 29.3 pg (25.0-34.0); Mean Corpuscular Hgb Conc 33.5 g/dL (32.0-36.0); Mean Corpuscular Volume 87.4 fL (80.0-100.0); Mean Platelet Volume 8.1 fL (9.4-12.4); Platelet Count 402 K/uL (130-400); RDW Coefficient of Variation 12.2 % (11.5-14.5); Red Blood Count 2.94 M/uL (4.20-5.40); White Blood Count 8.99 K/ul (4.8-10.8)
[2023-09-01 06:09] LABS: BUN Creatinine Ratio 14.6 (10-20); Calcium 8.1 mg/dl (8.6-10.3); Creatinine Clr Calc Pharmacy 84.1 ml/min; Est GFR (African American) 107.4 ml/min; Est GFR (Non-African American) 92.6 ml/min; Magnesium 1.7 mg/dl (1.7-2.4); Phosphorus 3.1 mg/dl (2.5-4.9); Potassium 3.1 mmol/L (3.5-5.1)
[2023-09-01] MEDS: POTASSIUM CHLORIDE CRTAB 20 MEQ TABCR PO STA (09:17)
[2023-09-01] MEDS: MAGNESIUM SULFATE / D5W 1 GM/100 ML BAG IV ONE (09:27)
--- NOTE | 2023-09-01 09:32 | Gastroenterology Progress Note ---
Date of Service September 01, 2023 Assessment & Plan (1) BRBPR (bright red blood per rectum): Plan: 78 year old female admitted with melena, abd pain and now BRBPR initial CT concerning for PUD w/ contained perforation, however, repeat imaging with contrast showing wall thickening and indistinctness of the duodenum suspicious for duodenal ulcer disease without contrast extravasation to indicate perforation or fistulous tract. S/P EGD 08/30 w/ large duodenal ulcer with clean base and no stigmata of recent bleeding. She has remained hemodynamically stable overnight w/o any further drop in her hemoglobin. Her last BM with BRB was around 10pm. As she has remained hemodynamically stable, may advance diet as tolerated. Convert to PO PPI BID today. Educated that some residual dark or bloody stool may be present for an additional 24-48 hours. However if there are any signs of ongoing blood loss or symptomatic blood loss she would need to be re-evaluate. She verbalized understanding. Family who is a nurse at bedside present for conversation and verbalized understanding. Given her history of colon cancer s/p resection in the we do recommend an OP colonoscopy. They would like this arranged as soon as possible. Given recent total hip, will arrange clinic appointment to assess strength and improvement since her ortho procedure. Thank you for allowing us to participate in the care of this patient. Please call with any acute changes, questions or concerns. Please see addendum below with additional recommendation from my supervising physician. I spent a total of 40 minutes on the date of service in review of patient's record, and previously obtained information in person and appropriate medical visit, discussion and education of plan, with patient and/or caregiver, placing orders for tests/referral/procedures as medically necessary and documentation of pertinent clinical information in patient's medical records for their visit today. Admission and Anticipated Discharge Date Admission Date: August 30, 2023 Supervising Physician Co-Signing Physician Notes I examined the patient and reviewed patient's chart , laboratory data and imaging studies. I agree with with assessment and plan of care as suggested by advanced practice provider. Patient is concerned about ongoing rectal bleeding. Appears that she is passing old blood. Hemoglobin 9.5 today. Started physical therapy. Advance diet. Continue proton pump inhibitor, Protonix 40 mg a day or omeprazole 40 mg a day. Awaiting Helicobacter pylori results from gastric antral biopsies. Treat if positive.. Follow-up in the office in a week or 2. If stable okay to restart aspirin in 3 to 5 days Colonoscopy as an outpatient in few weeks. Subjective Pt was seen and evaluated, chart reviewed. S/P EGD w/ non-bleeding duodenal ulcers with a clean ulcer base Notes her last BM had some BRB present at this was last night around 10 PM Review of Systems Review of Systems: All other findings negative except as noted in HPI. Physical Exam Constitutional: WD/WN, vitals as above Respiratory: normal respiratory effort, lungs clear to auscultation Cardiovascular: Rate/Rhythm: regular rate and regular rhythm Gastrointestinal (Abdomen): Inspection/Auscultation: normal bowel sounds Percussion/Palpation: abdomen soft Skin: no rashes, warm and dry Results & Data Results & Data Vital Signs (Past 12 Hours) Vital Signs Temp Pulse Pulse Resp BP Pulse Ox O2 Del Method 09/01/23 07:39 36.9 C 82 20 134/75 98 Room Air 09/01/23 06:57 78 09/01/23 02:20 36.9 C 81 16 131/72 95 Room Air 08/31/23 22:59 88 08/31/23 22:24 36.7 C 80 18 130/79 96 Room Air Laboratory Results 09/01/23 Range/Units 05:34 WBC 8.99 (4.8-10.8) K/ul RBC 2.94 L (4.20-5.40) M/uL Hgb 8.6 L (12.0-16.0) g/dl Hct 25.7 L (37.0-47.0) % MCV 87.4 (80.0-100.0) fL MCH 29.3 (25.0-34.0) pg MCHC 33.5 (32.0-36.0) g/dL RDW Std Deviation 39.0 (36.4-46.3) fL RDW Coeff of Velasquez 12.2 (11.5-14.5) % Plt Count 402 H (130-400) K/uL MPV 8.1 L (9.4-12.4) fL Sodium 136 (136-145) mmol/L Potassium 3.1 L (3.5-5.1) mmol/L Chloride 101 (98-107) mmol/L Carbon Dioxide 27 (21-32) mmol/L Anion Gap 8 (3-11) BUN 7 (6-23) mg/dl Creatinine 0.48 L (0.6-1.2) mg/dl Est Cr Clr Drug Dosing 84.1 ml/min Est GFR ( Amer) 107.4 ml/min Est GFR (Non-Af Amer) 92.6 ml/min BUN/Creatinine Ratio 14.6 (10-20) Glucose 98 (70-99(Fasting)) mg/dl Calcium 8.1 L (8.6-10.3) mg/dl Phosphorus 3.1 (2.5-4.9) mg/dl Magnesium 1.7 (1.7-2.4) mg/dl PG Care Time/CCT Total # of Minutes Spent Total Time Spent with Patient: Total time spent is greater than 50% in coordination of care (as documented) at patient's floor/unit and/or counseling patient: Coding Level of Care Code 93319 SUB INP/OBS CARE 2/35MIN Diagnoses BRBPR (bright red blood per rectum) K62.5
--- NOTE | 2023-09-01 09:57 | Hospitalist Progress Note ---
Date of Service September 01, 2023 Assessment & Plan (1) Abdominal pain: Plan: 78 yo F with hx of prediabetes, cyst of pancreas, recurrent UTI, cystocele, vitiligo, degenerative disc disease, osteoporosis, history of colon cancer and status post partial colectomy comes because of abdominal pain and constipation and found to have duodenal ulcer. Patient recently had left hip surgery. She was taking pain medication. Was constipated. But even after stopping the pain medication she did not move her bowels. She had a small loose stool today. She was having epigastric abdominal pain. Was feeling nauseous. Not able to eat much. In the ER initial CT scan there was question of duodenal ulcer with contained perforation and possible fistula. But CT scan with contrast just showed duodenal ulcer but no perforation or fistula seen. Currently resting comfortably and hemodynamically stable. Denies any headache. No dizziness. No blurred vision. No runny nose or sore throat. No cough. No chest pain or shortness of breath. States stools has been black. Micturating okay. Patient recently had left hip arthroplasty on August 18, 2023 and she has been on aspirin for DVT prophylaxis since then. Abdominal pain GI bleed Anemia CT scan with contrast showing possible duodenal ulcer disease initial CT scan without contrast was there was suspicious for ulcer disease with contained perforation and also possible developing fistula or abscess on IV Protonix, IV fluids. And empiric Zosyn. Hold aspirin GI consulted - s/p EGD on (08/31/2023) - EGD showed large duodenal ulcer with clean base and no stigmata of recent bleeding. Biopsies from the stomach antrum were obtained for Helicobacter pylori. Recommendations: #1. Okay to start clear liquids, advance diet as tolerated. #2. Continue IV PPI, okay #3. Awaiting antral biopsies. Treat if positive for Helicobacter pylori. #4. Monitor CBC. Hx of black stools now red bloody stools hemoglobin 10.8 hemoglobin was 11 on 08/19/2023 Now repeat Hgb 8.6 Monitor H&H Recent left hip arthroplasty follow-up with orthopedics was placed on aspirin 81 mg p.o. twice daily for DVT prophylaxis which is held for now DVT prophylaxis - SCDs for now disposition - med/tele full code Admission and Anticipated Discharge Date Admission Date: August 30, 2023 Subjective Pt seen in follow up of anemia, GI bleed Hx of dark stool but now changed to BRB in stool. This AM had another bloody BM - still on toilet. had abnormal CT imaging on admission GI consulted and pt underwent EGD yesterday Recent hx of hip surgery, was on ASA bid for DVT ppx Currently sitting up in chair in NAD, no fever, chills, chest pain, shortness of breath, no abd. pain. Family (daughter) present at the bedside. Review of Systems Review of Systems: All systems reviewed & are unremarkable except as noted in Subjective Physical Exam Physical Exam: General- WD/WN el martha F in NAD He ad- atraumatic E yes- PERRL. Neck- supple, no JVD. Lungs- clear to au scultation no whee zing or crackles. Heart- regular ra te and rhythm; no murmur Abdomen- n ormal bowel sounds , soft, nontender, no distension. E xtremities- no pre tibial edema, no e rythema seen. Left hip surgery site no drainage or janae thema seen. staple s intact. Neuro- alert, oriented P ERRL, no facial pa lsy; no dysarthria ; moves extremitie s. Results & Data Results & Data Vital Signs (Past 12 Hours) Vital Signs Temp Pulse Pulse Resp BP Pulse Ox O2 Del Method 09/01/23 07:39 36.9 C 82 20 134/75 98 Room Air 09/01/23 06:57 78 09/01/23 02:20 36.9 C 81 16 131/72 95 Room Air 08/31/23 22:59 88 08/31/23 22:24 36.7 C 80 18 130/79 96 Room Air Laboratory Results 09/01/23 Range/Units 05:34 WBC 8.99 (4.8-10.8) K/ul RBC 2.94 L (4.20-5.40) M/uL Hgb 8.6 L (12.0-16.0) g/dl Hct 25.7 L (37.0-47.0) % MCV 87.4 (80.0-100.0) fL MCH 29.3 (25.0-34.0) pg MCHC 33.5 (32.0-36.0) g/dL RDW Std Deviation 39.0 (36.4-46.3) fL RDW Coeff of Velasquez 12.2 (11.5-14.5) % Plt Count 402 H (130-400) K/uL MPV 8.1 L (9.4-12.4) fL Sodium 136 (136-145) mmol/L Potassium 3.1 L (3.5-5.1) mmol/L Chloride 101 (98-107) mmol/L Carbon Dioxide 27 (21-32) mmol/L Anion Gap 8 (3-11) BUN 7 (6-23) mg/dl Creatinine 0.48 L (0.6-1.2) mg/dl Est Cr Clr Drug Dosing 84.1 ml/min Est GFR ( Amer) 107.4 ml/min Est GFR (Non-Af Amer) 92.6 ml/min BUN/Creatinine Ratio 14.6 (10-20) Glucose 98 (70-99(Fasting)) mg/dl Calcium 8.1 L (8.6-10.3) mg/dl Phosphorus 3.1 (2.5-4.9) mg/dl Magnesium 1.7 (1.7-2.4) mg/dl Medications Administered Current Inpatient Medications Pantoprazole Sodium 40 mg/ (Syringe) 10 mls @ 5 mls/min IV BID JULIAN Stop: 09/29/23 08:59 Last Admin: 09/01/23 08:44 Dose: 5 mls/min Piperacillin Sod/Tazobactam (Sod 4.5 gm/ Dextrose) 100 mls @ 25 mls/hr IV Q8H JULIAN; Protocol Stop: 09/09/23 03:59 Last Infusion: 09/01/23 09:04 Dose: Infused Magnesium Sulfate/Dextrose (Magnesium Sulfate / D5w) 1 gm in 100 mls @ 50 mls/hr IV ONE ONE Stop: 09/01/23 10:47 Last Admin: 09/01/23 09:27 Dose: 50 mls/hr Nitroglycerin (Nitroglycerin Sl 0.4 Mg/Tab Tab) 0.4 mg SL Q5M PRN PRN Reason: Chest Pain Stop: 09/29/23 03:20 Ondansetron HCl (Ondansetron Inj 2 Mg/Ml 2 Ml Vial) 4 mg IV Q6H PRN PRN Reason: Nausea Stop: 09/29/23 03:20
[2023-09-01 13:24] LABS: Hematocrit (blood only) 29.1 % (37.0-47.0); Hemoglobin 9.5 g/dl (12.0-16.0)
[2023-09-01] MEDS ORDERED: oxyCODONE HCL IR 5 MG TAB (IMMEDIATE RELEASE) PO PRN (14:25)
[2023-09-01] MEDS: ACETAMINOPHEN 325 MG TAB PO PRN (14:50)
[2023-09-02 07:14] LABS: Hematocrit (blood only) 24.6 % (37.0-47.0); Hemoglobin 8.1 g/dl (12.0-16.0); Mean Corpuscular Hemoglobin 28.9 pg (25.0-34.0); Mean Corpuscular Hgb Conc 32.9 g/dL (32.0-36.0); Mean Corpuscular Volume 87.9 fL (80.0-100.0); Mean Platelet Volume 8.4 fL (9.4-12.4); Platelet Count 390 K/uL (130-400); RDW Coefficient of Variation 12.2 % (11.5-14.5); RDW Standard Deviation 39.6 fL (36.4-46.3); White Blood Count 7.39 K/ul (4.8-10.8)
[2023-09-02 07:27] LABS: BUN Creatinine Ratio 18.9 (10-20); Calcium 8.3 mg/dl (8.6-10.3); Creatinine Clr Calc Pharmacy 73.9 ml/min; Est GFR (African American) 103.9 ml/min; Est GFR (Non-African American) 89.7 ml/min; Phosphorus 3.5 mg/dl (2.5-4.9); Potassium 3.3 mmol/L (3.5-5.1)
[2023-09-02] MEDS: POTASSIUM CHLORIDE CRTAB 20 MEQ TABCR PO STA (09:41)
--- NOTE | 2023-09-02 10:01 | Hospitalist Progress Note ---
Date of Service September 02, 2023 Assessment & Plan (1) Abdominal pain: Plan: per previous hospitalist notes with addendum: 78 yo F with hx of prediabetes, cyst of pancreas, recurrent UTI, cystocele, vitiligo, degenerative disc disease, osteoporosis, history of colon cancer and status post partial colectomy comes because of abdominal pain and constipation and found to have duodenal ulcer. Patient recently had left hip surgery. She was taking pain medication. Was constipated. But even after stopping the pain medication she did not move her bowels. She had a small loose stool today. She was having epigastric abdominal pain. Was feeling nauseous. Not able to eat much. In the ER initial CT scan there was question of duodenal ulcer with contained perforation and possible fistula. But CT scan with contrast just showed du odenal ulcer but no perforation or fistula seen. Currently resting comfortably and hemodynamically stable. Denies any headache. No dizziness. No blurred vision. No runny nose or sore throat. No cough. No chest pain or shortness of breath. States stools has been black. Micturating okay. Patient recently had left hip arthroplasty on August 18, 2023 and she has been on aspirin for DVT prophylaxis since then. GI bleed, Secondary to large duodenal ulcer Anemia, Acute blood loss secondary to above CT scan with contrast showing possible duodenal ulcer disease initial CT scan without contrast was there was suspicious for ulcer disease with contained perforation and also possible developing fistula or abscess on IV Protonix, IV fluids. And empiric Zosyn. Hold aspirin GI consulted - s/p EGD on (08/31/2023) - EGD showed large duodenal ulcer with clean base and no stigmata of recent bleeding. Biopsies from the stomach antrum were obtained for Helicobacter pylori. Recommendations: #1. Okay to start clear liquids, advance diet as tolerated. #2. Continue IV PPI, okay #3. Awaiting antral biopsies. Treat if positive for Helicobacter pylori. #4. Monitor CBC. Hemoglobin 10, 8.6, 9, 8.1 Cleared for discharge by gastroenterology service Continue with Protonix 40 mg p.o. twice daily Resume aspirin 81 mg p.o. twice daily on Thursday Repeat CBC tomorrow by home health service, for results to PCP and GI, monitor CBC closely Recent left hip arthroplasty follow-up with orthopedics was placed on aspirin 81 mg p.o. twice daily for DVT prophylaxis, Resume on Thursday as per GI service DVT prophylaxis - SCDs for now disposition Home with home service Follow-up with them Ortho this coming Thursday Follow-up with GI this coming Thursday PCP in 1 week Admission and Anticipated Discharge Date Admission Date: August 30, 2023 Subjective Follow-up for GI bleed, duodenal ulcer, etc. Seen sitting up in bedside chair comfortable, in good spirits States she feels better overall No abdominal pain, nausea vomiting, fevers or chills Still having some dark stools but getting grievance coordinator No chest pain, shortness of breath, palpitations, dizziness Walked around the hallways with no problems No other new symptoms States she is ready willing to be discharged today Patient's daughter at bedside also agreeable with the plan Review of Systems Review of Systems: all noted and negative except for above Physical Exam Physical Exam: General- oriented x 3, not in distress, speaks in sentences with no effort or accessory muscle use Eyes- anicteric Neck- no JVD Lungs- clear breath sounds bilaterally, no rales/wheezes Heart- normal rate, regular rhythm; no murmurs Abdomen- normal bowel sounds, nondistended, soft, nontender Extremities- no pretibial edema, no calf tenderness Left hip-surgical incision site: Healing well, no bleeding or discharge, no hematoma, edema, erythema Neuro- alert, oriented x 3; no gross focal neurologic deficits Skin- warm & dry Results & Data Results & Data Vital Signs (Past 12 Hours) Vital Signs Temp Pulse Pulse Resp BP Pulse Ox O2 Del Method 09/02/23 07:46 36.7 C 73 16 119/65 97 Room Air 09/02/23 07:37 71 09/02/23 03:45 36.4 C L 75 14 123/70 96 Room Air 09/01/23 22:59 70 09/01/23 22:40 37.1 C 80 16 113/64 94 Room Air all noted and reviewed including below
--- NOTE | 2023-09-02 10:17 | Discharge Summary ---
Discharge Summary Date of Service September 02, 2023 Principal Dx & Hospital Course #1 = Principal Diagnosis (1) Abdominal pain: per previous hospitalist notes with addendum: 78 yo F with hx of prediabetes, cyst of pancreas, recurrent UTI, cystocele, vitiligo, degenerative disc disease, osteoporosis, history of colon cancer and status post partial colectomy comes because of abdominal pain and constipation and found to have duodenal ulcer. Patient recently had left hip surgery. She was taking pain medication. Was constipated. But even after stopping the pain medication she did not move her bowels. She had a small loose stool today. She was having epigastric abdominal pain. Was feeling nauseous. Not able to eat much. In the ER initial CT scan there was question of duodenal ulcer with contained perforation and possible fistula. But CT scan with contrast just showed duodenal ulcer but no perforation or fistula seen. Currently resting comfortably and hemodynamically stable. Denies any headache. No dizziness. No blurred vision. No runny nose or sore throat. No cough. No chest pain or shortness of breath. States stools has been black. Micturating okay. Patient recently had left hip arthroplasty on August 18, 2023 and she has been on aspirin for DVT prophylaxis since then. GI bleed, Secondary to large duodenal ulcer Anemia, Acute blood loss secondary to above CT scan with contrast showing possible duodenal ulcer disease initial CT scan without contrast was there was suspicious for ulcer disease with contained perforation and also possible developing fistula or abscess on IV Protonix, IV fluids. And empiric Zosyn. Hold aspirin GI consulted - s/p EGD on (08/31/2023) - EGD showed large duodenal ulcer with clean base and no stigmata of recent bleeding. Biopsies from the stomach antrum were obtained for Helicobacter pylori. Recommendations: #1. Okay to start clear liquids, advance diet as tolerated. #2. Continue IV PPI, okay #3. Awaiting antral biopsies. Treat if positive for Helicobacter pylori. #4. Monitor CBC. Hemoglobin 10, 8.6, 9, 8.1 Anemia panel: Pending Please follow-up Cleared for discharge by gastroenterology service continue with Protonix 40 mg p.o. twice daily Resume aspirin 81 mg p.o. twice daily on Thursday Repeat CBC tomorrow by home health service, for results to PCP and GI, monitor CBC closely Recent left hip arthroplasty follow-up with orthopedics was placed on aspirin 81 mg p.o. twice daily for DVT prophylaxis, Resume on Thursday as per GI service Abnormal CT scan findings Liver, kidney, pancreatic cysts abdominal aorta is normal in course and caliber noting moderate atherosclerotic calcification. Please refer to full report in the Ordered Studies section above Further work up, management, and ff up as outpatient DVT prophylaxis - SCDs for now disposition Home with home service Follow-up with them Ortho this coming Thursday Follow-up with GI this coming Thursday PCP in 1 week Notes For Next Care Provider Medication Changes From Visit Protonix-antacid for treatment of duodenal ulcer -Take at least 30 minutes before your meal Hold aspirin for now, resume this coming Thursday. Always take with a full stomach Admission HPI Per Admitting Provider 78-year-old female with past medical history significant for prediabetes, cyst of pancreas, recurrent UTI, cystocele, vitiligo, degenerative disc disease, osteoporosis, history of colon cancer and status post partial colectomy comes because of abdominal pain and constipation and found to have duodenal ulcer. Patient recently had left hip surgery. She was taking pain medication. Was constipated. But even after stopping the pain medication she did not move her bowels. She had a small loose stool today. She was having epigastric abdominal pain. Was feeling nauseous. Not able to eat much. In the ER initial CT scan there was question of duodenal ulcer with contained perforation and possible fistula. But CT scan with contrast just showed duodenal ulcer but no perforation or fistula seen. Currently resting comfortably and hemodynamically stable. Denies any headache. No dizziness. No blurred vision. No runny nose or sore throat. No cough. No chest pain or shortness of breath. States stools has been black. Micturating okay. Patient recently had left hip arthroplasty on August 18, 2023 and she has been on aspirin for DVT prophylaxis since then. Past medical history. As mentioned above Past surgical history. Colonoscopy. EGD. EGD with endoscopic ultrasound. Ligation of oviducts. Partial colectomy. Cholecystectomy. Right total hip replacement. Vaginal hysterectomy. S/p total left hip arthroplasty on August 18, 2023. Social history. Lives alone. Currently sister living with her since her hip surgery. No smoking. Alcohol occasional. No drug use. Family history. Mother had emphysema, Alzheimer's. Father had emphysema, lung cancer. Admission Exam Per Admitting Provider General- Not in distress Head- atraumatic Eyes- PERRL. ENT- oropharynx clear Neck- supple, no JVD. Lungs- clear to auscultation no wheezing or crackles. Heart- regular rate and rhythm; no murmur, no gallop. Abdomen- normal bowel sounds, soft, nontender, no distension. Extremities- no pretibial edema, no erythema seen. Left hip surgery site no drainage or erythema seen. jagjit intact. Neuro- alert, oriented PERRL, no facial palsy; no dysarthria; moves extremities. Discharge Exam General- oriented x 3, not in distress, speaks in sentences with no effort or accessory muscle use Eyes- anicteric Neck- no JVD Lungs- clear breath sounds bilaterally, no rales/wheezes Heart- normal rate, regular rhythm; no murmurs Abdomen- normal bowel sounds, nondistended, soft, nontender Extremities- no pretibial edema, no calf tenderness Left hip-surgical incision site: Healing well, no bleeding or discharge, no hematoma, edema, erythema Neuro- alert, oriented x 3; no gross focal neurologic deficits Skin- warm & dry Updated Medication List Medication Instructions Recorded Confirmed Type alendronate 70 mg tablet (Fosamax) 70 mg PO WK 07/10/23 08/29/23 History amoxicillin 500 mg tablet 2,000 mg PO UD PRN prior to dental 07/10/23 08/29/23 History procedures ergocalciferol (vitamin D2) 50,000 50,000 unit PO WK 07/10/23 08/29/23 History unit tablet magnesium 1 tab PO QAM 07/10/23 08/29/23 History rnfvwact-wru-epnmqg 5 mg-zeaxanth 1 cap PO QAM 07/10/23 08/29/23 History 1 mg-bilberry 7.5 mg-herbal capsule (Macular Health Formula) Wheeled Walker #1 ea 08/11/23 Rx acetaminophen 500 mg tablet 1,000 mg (2 x 500 mg) PO TID pain 08/16/23 08/29/23 Rx (Tylenol Extra Strength) 30 days #180 tabs aspirin 81 mg tablet,delayed 81 mg PO BID 45 days #90 tabs 08/16/23 08/29/23 Rx release (Amaris Low Dose Aspirin) ondansetron 4 mg disintegrating 4 mg PO Q8 PRN nausea #20 tabs 08/16/23 08/29/23 Rx tablet sennosides 8.6 mg tablet (Senokot) 8.6 mg PO BID prevent constipation 08/16/23 08/29/23 Rx 14 days #28 tabs pantoprazole 40 mg tablet,delayed 40 mg PO BID 30 days #90 tabs 09/02/23 Rx release (Protonix) Hospital Stay Data Consultations 08/29/23 22:36 ED Decision to Admit Stat 08/30/23 08:00 Consult Gastroenterology Routine Procedures Performed Operation Date: 08/31/23 16:45 Actual Procedures p EGD Biopsy Cytology - Reynaldo Verde MD Diagnostic Imagining Performed Laboratory Results WBC 7.39 K/ul (4.8-10.8) 09/02/23 05:48 RBC 2.80 M/uL (4.20-5.40) L 09/02/23 05:48 Hgb 8.1 g/dl (12.0-16.0) L 09/02/23 05:48 Hct 24.6 % (37.0-47.0) L 09/02/23 05:48 MCV 87.9 fL (80.0-100.0) 09/02/23 05:48 MCH 28.9 pg (25.0-34.0) 09/02/23 05:48 MCHC 32.9 g/dL (32.0-36.0) 09/02/23 05:48 RDW Std Deviation 39.6 fL (36.4-46.3) 09/02/23 05:48 RDW Coeff of Velasquez 12.2 % (11.5-14.5) 09/02/23 05:48 Plt Count 390 K/uL (130-400) 09/02/23 05:48 MPV 8.4 fL (9.4-12.4) L 09/02/23 05:48 Immature Gran % (Auto) 0.8 % 08/30/23 07:04 Neut % (Auto) 75.5 % 08/30/23 07:04 Lymph % (Auto) 13.5 % 08/30/23 07:04 [place] % (Auto) 7.3 % 08/30/23 07:04 Eos % (Auto) 2.4 % 08/30/23 07:04 Baso % (Auto) 0.5 % 08/30/23 07:04 Neut # (Auto) 7.45 K/uL (1.40-6.50) H 08/30/23 07:04 Lymph # (Auto) 1.33 K/uL (1.20-3.40) 08/30/23 07:04 Canadian # (Auto) 0.72 K/uL (0.11-0.59) H 08/30/23 07:04 Eos # (Auto) 0.24 K/uL (0.00-0.50) 08/30/23 07:04 Baso # (Auto) 0.05 K/uL (0.00-0.20) 08/30/23 07:04 Immature Gran # (Auto) 0.08 K/uL (0.01-0.20) 08/30/23 07:04 PT 10.8 Seconds (9.0-12.0) 08/29/23 15:52 INR 1.0 (0.9-1.1) 08/29/23 15:52 Sodium 138 mmol/L (136-145) 09/02/23 05:48 Potassium 3.3 mmol/L (3.5-5.1) L 09/02/23 05:48 Chloride 104 mmol/L (98-107) 09/02/23 05:48 Carbon Dioxide 29 mmol/L (21-32) 09/02/23 05:48 Anion Gap 5 (3-11) 09/02/23 05:48 BUN 10 mg/dl (6-23) 09/02/23 05:48 Creatinine 0.53 mg/dl (0.6-1.2) L 09/02/23 05:48 Est Cr Clr Drug Dosing 73.9 ml/min 09/02/23 05:48 Est GFR ( Amer) 103.9 ml/min 09/02/23 05:48 Est GFR (Non-Af Amer) 89.7 ml/min 09/02/23 05:48 BUN/Creatinine Ratio 18.9 (10-20) 09/02/23 05:48 Glucose 115 mg/dl (70-99(Fasting)) H 09/02/23 05:48 Lactate 1.2 mmol/L (0.4-2.0) 08/29/23 16:30 Calcium 8.3 mg/dl (8.6-10.3) L 09/02/23 05:48 Phosphorus 3.5 mg/dl (2.5-4.9) 09/02/23 05:48 Magnesium 2.0 mg/dl (1.7-2.4) 09/02/23 05:48 Total Bilirubin 0.4 mg/dl (0.2-1.0) 08/29/23 15:52 AST 16 U/L (13-39) 08/29/23 15:52 ALT 19 U/L (7-52) 08/29/23 15:52 Alkaline Phosphatase 69 U/L (34-104) 08/29/23 15:52 Troponin I High Sens 3.5 pg/ml (0-14) 08/29/23 15:52 Total Protein 6.3 gm/dl (6.0-8.3) 08/29/23 15:52 Albumin 3.8 gm/dl (3.4-5.0) 08/29/23 15:52 Globulin 2.5 gm/dl (2.5-4.0) 08/29/23 15:52 Albumin/Globulin Ratio 1.5 (0.9-2) 08/29/23 15:52 Lipase 30 U/L (11-82) 08/29/23 15:52 Urine Color Yellow 08/29/23 Unknown Urine Appearance Clear (Clear) 08/29/23 Unknown Urine pH 8.0 (4.5-7.5) H 08/29/23 Unknown Ur Specific [place] 1.038 (1.000-1.030) H 08/29/23 Unknown Urine Protein Negative (Negative) 08/29/23 Unknown Urine Glucose (UA) Negative (Negative) 08/29/23 Unknown Urine Ketones Trace (Negative) H 08/29/23 Unknown Urine Blood Negative (Negative) 08/29/23 Unknown Urine Nitrite Negative (Negative) 08/29/23 Unknown Urine Bilirubin Negative (Negative) 08/29/23 Unknown Urine Urobilinogen Negative (Negative) 08/29/23 Unknown Ur Leukocyte Esterase 1+ (Negative) H 08/29/23 Unknown Urine WBC (Auto) 0-5 /hpf (0-5) 08/29/23 Unknown Urine RBC (Auto) 0-2 /hpf (0-2) 08/29/23 Unknown U Hyaline Cast (Auto) 0-2 /lpf (0-2) 08/29/23 Unknown U Epithel Cells (Auto) 3-5 /hpf (0-2) H 08/29/23 Unknown Urine Bacteria (Auto) None Seen (None Seen) 08/29/23 Unknown Adenovirus (PCR) Not Detected (NotDetected) 08/29/23 16:30 B. pertussis DNA (PCR) Not Detected (NotDetected) 08/29/23 16:30 B.parapertussis DNA PCR Not Detected (NotDetected) 08/29/23 16:30 C. pneumoniae DNA (PCR) Not Detected (NotDetected) 08/29/23 16:30 Coronavirus OC43 (PCR) Not Detected (NotDetected) 08/29/23 16:30 Coronavirus HKU1 (PCR) Not Detected (NotDetected) 08/29/23 16:30 Coronavirus 229E (PCR) Not Detected (NotDetected) 08/29/23 16:30 SARS-CoV-2 (PCR) Not Detected (NotDetected) 08/29/23 16:30 Coronavirus NL63 (PCR) Not Detected (NotDetected) 08/29/23 16:30 Human Metapneumovir PCR Not Detected (NotDetected) 08/29/23 16:30 Influenza Type A (PCR) Not Detected (NotDetected) 08/29/23 16:30 Influenza Type B (PCR) Not Detected (NotDetected) 08/29/23 16:30 M. pneumoniae (PCR) Not Detected (NotDetected) 08/29/23 16:30 Parainfluenza 1 (PCR) Not Detected (NotDetected) 08/29/23 16:30 Parainfluenza 2 (PCR) Not Detected (NotDetected) 08/29/23 16:30 Parainfluenza 3 (PCR) Not Detected (NotDetected) 08/29/23 16:30 Parainfluenza 4 (PCR) Not Detected (NotDetected) 08/29/23 16:30 RSV (PCR) Not Detected (NotDetected) 08/29/23 16:30 Entero/Rhino (PCR) Not Detected (NotDetected) 08/29/23 16:30 Impressions Abdomen/Pelvis CT 08/29/23 19:55 Exam(s): CT ABDOMEN + PELVIS With Contrast Oral - High Density Amt: 30 cc gastro EXAM: CT Abdomen and Pelvis With Intravenous Contrast CLINICAL HISTORY: Reason for exam: concern for possible perforation. TECHNIQUE: Axial computed tomography images of the abdomen and pelvis with intravenous contrast. CTDI is 15 mGy and DLP is 678 mGy-cm. Automated exposure control was utilized for the study. A dose lowering technique was utilized adhering to the principles of ALARA. CONTRAST: Patient received 30 cc gastro of Oral - High Density contrast COMPARISON: August 29, 2023 at 1735 hrs. FINDINGS: Lung bases: Unremarkable. No mass. No consolidation. ABDOMEN: Liver: 2.4 cm cyst along the anterior margin of the liver near the falciform ligament. There is a punctate calcification within a thin septation. No follow-up is required. Gallbladder and bile ducts: The gallbladder has been removed. No biliary duct dilation is seen. Pancreas: Unremarkable. No mass. No ductal dilation. Spleen: Unremarkable. No splenomegaly. Adrenals: Unremarkable. No mass. Kidneys and ureters: 3 cm simple cyst in the left kidney. No follow- up is required. No hydronephrosis. Stomach and bowel: There is oral contrast within the stomach, duodenum, small bowel, and colon. There is wall thickening and indistinctness of the medial wall of the first and second portions of the duodenum suspicious for duodenal ulcer disease, less likely neoplasm. No contrast extravasation is seen to indicate perforation. No obstruction. PELVIS: Appendix: No findings to suggest acute appendicitis. Bladder: Unremarkable. No mass. Reproductive: Unremarkable as visualized. ABDOMEN and PELVIS: Intraperitoneal space: The uterus is absent. No free fluid is seen in the pelvis. No free air. Bones/joints: Metallic artifact from bilateral hip arthroplasties. No acute fracture or dislocation is seen. Mild to moderate degenerative changes throughout the spine. No acute fracture or subluxation is seen. There is a unilateral left pars defect at L5 without spondylolisthesis. Soft tissues: Unremarkable. Vasculature: The abdominal aorta is calcified but nondilated. Lymph nodes: Unremarkable. No enlarged lymph nodes. Other findings: No fistulous tract is identified. IMPRESSION: There is oral contrast within the stomach, duodenum, small bowel, and colon. There is wall thickening and indistinctness of the medial wall of the first and second portions of the duodenum suspicious for duodenal ulcer disease, less likely neoplasm or duodenitis. No contrast extravasation is seen to indicate perforation. No fistulous tract is identified. Electronically signed by: Judd Briggs MD 08/29/23 22:29 PM 08/29/23 15:45 CT abd pelvis IV con only Stat FINDINGS: Lung bases: The heart is mildly enlarged and without pericardial effusion. There is bibasilar scarring/atelectasis. No airspace consolidation or pleural effusion is identified. Liver: The contrast-enhanced liver is normal in size, contour, and attenuation. There is no intrahepatic biliary ductal dilatation. The hepatic veins and portal veins are patent. Small hepatic cysts measure up to 12 mm Additional small hepatic cysts measure up to 12 mm scattered subcentimeter hepatic hypodensities likely represent cysts but are too small for definitive characterization. Gallbladder: Surgically absent noting clips in the gallbladder fossa. Spleen: Normal in size and attenuation. Pancreas: The pancreas is a trophic. 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 Adrenal glands: Unremarkable. Kidneys: The contrast enhanced kidneys are normal in size and without hydronephrosis. The kidneys enhance symmetrically. There is a 3.4 cm left upper pole renal cyst. Additional subcentimeter cortical hypodensities also likely represent cysts but are too small for definitive characterization. There are at least 6 tiny nonobstructing right renal calculi which measure up to 3 mm. No ureteral stone is seen. Abdominal vasculature: The abdominal aorta is normal in course and caliber noting moderate atherosclerotic calcification. Stomach and bowel: There is wall thickening and edema of the distal stomach/proximal duodenum with surrounding infiltration. There is apparent mucosal discontinuity inferiorly with a small outpouching of fluid seen on axial image #123. This measures up to 1.5 cm. Findings are suspicious for ulcer disease with a contained perforation. There are mildly enlarged adjacent lymph nodes which measure up to 1.3 cm as seen on image #130. There is a serpiginous fluid collection along the superior aspect of the gastroduodenal junction extending towards the right ventral abdominal wall seen on images #98-107. This measures approximately 2.5 x 2 cm in aggregate dimension. There is [id number] colonic fecal retention. No bowel obstruction is seen. The appendix is not identified and reportedly surgically absent. Peritoneum: There is no intraperitoneal free air or abdominal ascites. There is a small fat-containing umbilical hernia. Lymphadenopathy: None. Pelvic viscera: Evaluation of the pelvis is degraded by streak artifact from bilateral hip arthroplasties. The bladder is normal as visualized. The uterus is surgically absent. No adnexal lesion is seen. Skeletal structures: The skeletal structures are osteopenic. There is mild lumbosacral spondylosis. 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 No lytic or blastic lesions are seen. Bilateral hip arthroplasties are in place. There is significant edema and fluid overlying the left hip arthroplasty with skin clips in place. A fluid collection lateral to the greater trochanter seen on axial image #285 measures approximately 8 x 2 x 2 cm it is likely recently postoperative seroma/hematoma. IMPRESSION: 1. There is wall thickening and edema of the distal stomach/proximal duodenum with surrounding inflammation. Additionally, there is apparent mucosal discontinuity inferiorly with a small outpouching of fluid. Findings are suspicious for ulcer disease with a contained perforation. Endoscopy is recommended for further assessment and to exclude underlying mass lesion. 2. Additionally, there is a serpiginous fluid collection or tract which extends from the gastroduodenal junction anteriorly to the ventral peritoneum as above. This could represent a developing fistula or abscess. 3. No intraperitoneal free air is seen. 4. Right-sided nephrolithiasis 5. A left hip arthroplasty is in place, with expected overlying postsurgical change. A serpiginous fluid collection in the lateral subcutaneous soft tissues at this site likely resents a postoperative seroma/hematoma. The sterility of this fluid cannot be assessed by imaging and clinical correlation will be required. 6. Additional findings as above. Pending Results Patient Have Any Pending Studies at Discharge: Yes Discharge Instructions Given to Patient (Per Discharging Provider) PLEASE REFER TO YOUR NEW MEDICATION LIST AND FOLLOW INSTRUCTIONS CAREFULLY. YOUR NEW MEDICATIONS INCLUDE: Protonix-antacid for treatment of duodenal ulcer -Take at least 30 minutes before your meal Hold aspirin for now, resume this coming Thursday. Always take with a full stomach Repeat hematocrit and hemoglobin tomorrow by home health service. PLEASE CALL YOUR PRIMARY CARE PHYSICIAN OR RETURN TO THE ER IF WITH WORSENING OF SYMPTOMS, INCLUDING Abdominal pain, nausea vomiting, fevers or chills, black or bloody stools, shortness of breath, dizziness, chest pain, etc. FOLLOW UP WITH PRIMARY CARE PHYSICIAN OUTLINED ABOVE. Follow-up with orthopedic surgeon and trimming machine set up operator as scheduled. Total Time Total Time Spent Total Time Spent (In Minutes): 45 minutes
== END 2023-09-02 12:25 | disposition home health service (06) | DRG 378 ==
LOC: ED 15:14 → EDINP 08-30 01:30 → SUATTDRO 08-30 01:30 → 2N 08-30 14:43

== ENCOUNTER 2024-03-30 05:18 | Inpatient (IN) ==
--- NOTE | 2024-02-25 15:22 | PAT Medication Instructions ---
Medication Instructions Date of Service February 25, 2024 Home Medications Medication Instructions Recorded Lavern Walker #1 ea 08/11/23 acetaminophen 500 mg tablet 1,000 mg (2 x 500 mg) PO TID pain 08/16/23 (Tylenol Extra Strength) 30 days #180 tabs alendronate 70 mg tablet (Fosamax) 70 mg PO WK ergocalciferol (vitamin D2) 50,000 unit tablet 50,000 unit PO WK kifpekwy-chi-cjvxze 5 mg-zeaxanth 1 mg-bilberry 7.5 mg-herbal capsule (Macular Health Formula) 4 cap PO QAM acetaminophen 500 mg tablet (Tylenol Extra Strength) 1,000 mg (2 x 500 mg) PO TID duloxetine 20 mg capsule,delayed release (Cymbalta) 20 mg PO QAM pantoprazole 20 mg tablet,delayed release (Protonix) 20 mg PO DAILY tramadol 25 mg tablet 25 mg PO Q6H PRN Continue as directed pantoprazole 20 mg tablet,delayed release (Protonix) 20 mg PO DAILY STOP taking 2 weeks before surgery (or as soon as possible if surgery is within 2 weeks) ksxhfvce-ijt-tsatll 5 mg-zeaxanth 1 mg-bilberry 7.5 mg-herbal capsule (Macular Health Formula) 4 cap PO QAM DO NOT take the morning of surgery alendronate 70 mg tablet (Fosamax) 70 mg PO WK ergocalciferol (vitamin D2) 50,000 unit tablet 50,000 unit PO WK Take morning of surgery With a small sip of water, OTHERWISE NOTHING TO EAT OR DRINK AFTER MIDNIGHT: acetaminophen 500 mg tablet (Tylenol Extra Strength) 1,000 mg (2 x 500 mg) PO TID duloxetine 20 mg capsule,delayed release (Cymbalta) 20 mg PO QAM tramadol 25 mg tablet 25 mg PO Q6H PRN(if needed) Take evening before surgery acetaminophen 500 mg tablet (Tylenol Extra Strength) 1,000 mg (2 x 500 mg) PO TID tramadol 25 mg tablet 25 mg PO Q6H PRN(if needed) Other Notes If you have any questions please call us at [phone] or [phone] or [phone] or [phone]
--- NOTE | 2024-03-10 08:45 | Anesthesiology Consultation ---
Date of Service March 10, 2024 Assessment & Plan (1) Encounter for pre-operative examination: - left HOPE 08/18/23 SAB. - Outpatient joint assessment: Patient is currently scheduled for inpatient pathway. If re-evaluated and patient/surgeon requests outpatient pathway, patient is not candidate for outpatient joint program from anesthesia standpoint. Chart Review Chart Review: Acceptable Risk for Surgery and Patient seen in Pre Admission Testing Teaching & Discussion Pre-Anesthesia Teaching/Discussion Notes: Instructed NPO after midnight before surgery, except medications with 15 cc of water. Medication instructions provided according to the PAT guidelines. History Surgery Operation Date: 03/30/24 07:15 Proposed Procedures p Left Total Knee Arthroplasty - Renny Briggs MD Height/Weight Height: 5 ft 4 in Weight: 55.2 kg Allergies Allergy/AdvReac Type Severity Reaction Status Date / Time Sulfa (Sulfonamide Allergy Intermediate HIVES Verified 02/25/24 08:00 Antibiotics) Medications Home Medications Medication Instructions Recorded Confirmed Last Taken alendronate 70 mg tablet (Fosamax) 70 mg PO WK 07/10/23 02/25/24 08/16/23 08:00 ergocalciferol (vitamin D2) 50,000 50,000 unit PO WK 07/10/23 02/25/24 08/13/23 unit tablet [id number] 5 mg-zeaxanth 4 cap PO QAM 07/10/23 02/25/24 08/29/23 1 mg-bilberry 7.5 mg-herbal capsule (Macular Health Formula) Wheeled Walker #1 ea 08/11/23 01/06/24 Unknown acetaminophen 500 mg tablet 1,000 mg (2 x 500 mg) PO TID pain 08/16/23 02/25/24 08/29/23 (Tylenol Extra Strength) 30 days #180 tabs duloxetine 20 mg capsule,delayed 20 mg PO QAM 01/06/24 02/25/24 Unknown release (Cymbalta) pantoprazole 20 mg tablet,delayed 20 mg PO DAILY 01/06/24 02/25/24 Unknown release (Protonix) tramadol 25 mg tablet 25 mg PO Q6H PRN prn 01/06/24 02/25/24 Unknown Past Medical History Medical History History of colorectal cancer (~1997) diagnosed 1997--s/p partial colon resection, chemo/radiation History of COVID-19 (~2020) 2020--mild symptoms, no symptoms now History of GI bleed (~08/2023) 08/2023 due to gastric ulcers, occurred one week after hip replacement, no issues currently, not following with gastro currently History of postoperative nausea and vomiting Osteoarthritis Bilateral knees, left hip Patient denies h/o stroke, seizures, heart attack, heart failure, DM, HTN, blood clots/DVTs or blood transfusions. Exercise / Class Metabolic Activity III < 4 Walking/Shop/Light housework (denies chest discomfort or shortness of breath with usual activities; notes recently moved downstairs) Past Family History Family History Other No family history of adverse response to anesthesia Past Surgical History Surgical History History of benign breast biopsy History of bilateral cataract extraction History of cholecystectomy History of colon resection 1997 History of colonoscopy History of tooth extraction all teeth removed History of total hysterectomy with bilateral salpingo-oophorectomy (BSO) History of total left hip replacement History of total right hip replacement Past Anesthesia History No Hx of Anesthesia Complications and No Family Hx of Anesthesia Complications History of PONV No Hx of Motion Sickness and History of PONV (notes did well with approach 08/2023) Social History Smoking Status: Never smoker Do You Dip or Chew Tobacco: No Hx Alcohol Use: Yes Alcohol type: wine alcohol intake frequency: holidays/special occasions only Hx Substance Use: No substance use type: does not use Review of Systems Patient denies chest pain, shortness of breath, dyspnea on exertion, snoring, witnessed apneas, fever, chills, cough, wheezing, or palpitations. Physical Exam Vital Signs Vitals BP 145/80 P 80 TEMP 97.7 SP02 98% on RA RESP 18 Physical Patient resting comfortably in chair in no acute distress, alert and oriented, responding appropriately throughout visit Full cervical extension range of motion without pain TMD 3.5 finger breadths Mallampati Score 2 Dentition: edentulous, full upper and lower dentures Lungs: normal respiratory effort. Good air movement, clear throughout to auscultation, no adventitious breath sounds Cardiac: regular rate and rhythm, no murmurs noted Carotid arteries: negative bruit bilat Lab Results Anesthesia Preop Results Results Anesthesia Widget: WBC 4.96 K/ul (4.8-10.8) 03/10/24 Hgb 12.1 g/dl (12.0-16.0) 03/10/24 Hct 36.8 % (37.0-47.0) L 03/10/24 Plt 312 K/uL (130-400) 03/10/24 Na 141 mmol/L (136-145) 03/10/24 K 4.2 mmol/L (3.5-5.1) 03/10/24 Cl 103 mmol/L (98-107) 03/10/24 CO2 31 mmol/L (21-32) 03/10/24 BUN 17 mg/dl (6-23) 03/10/24 Creat 0.51 mg/dl (0.6-1.2) L 03/10/24 Glucose Level 124 mg/dl (70-99(Fasting)) H 03/10/24 PT 10.6 Seconds (9.0-12.0) 03/10/24 PTT 24 Seconds (21-31) 03/10/24 INR 1.0 (0.9-1.1) 03/10/24 Blood Type B Positive 03/10/24 Antibody Screen NEGATIVE 03/10/24 Testing Electrocardiogram Date: 08/29/23 NSR, rate 96 bpm Chest X-Ray Date: 07/27/23 No acute chest disease. Cardiomegaly is noted. Other Testing Abdomen pelvis CT 08/29/23 There is oral contrast within the stomach, duodenum, small bowel, and colon. There is wall thickening and indistinctness of the medial wall of the first and second portions of the duodenum suspicious for duodenal ulcer disease, less likely neoplasm or duodenitis. No contrast extravasation is seen to indicate perforation. No fistulous tract is identified.
--- NOTE | 2024-03-26 08:40 | History & Physical Report ---
Date of Service March 26, 2024 Assessment & Plan (1) Degenerative arthritis of knee, bilateral: 78-year-old female status post bilateral hip replacements the last 1 done 6 months ago complicated by GI bleed with advanced knee arthritis. She is recovered from her hip surgery and the GI bleed issue. She is limited by her knee pain. She proceed with left knee replacement. Plan: We are going to take her to the operating room do a left knee replacement. The risks Mente this procedure were explained. She understands. Will avoid any aspirin use to prevent GI issues and GI bleed. Will use Xarelto for DVT prophylaxis. She will continue on her Protonix. She is planned to be discharged to home using [facility] health program. (2) History of total right hip replacement: (3) History of total left hip replacement: (4) History of GI bleed: History of Present Illness Chief Complaint: . Bilateral knee pain discomfort left side greater than the right. Primary Care Provider: Aurelia Solo DO . The patient is an 78-year-old female who is well-known to me from previous hip replacements. She had a right hip replaced about 7 years ago in the left and about 6 and half months ago. She done well from this for the most part but she did have a GI bleed after her last surgery. She is now recovered from this. She continues to be bothered by knee pain and discomfort. Both knees hurt but the left knee is worse than the right. She been through conservative treatment which would become less successful. It is affecting her quality life. She is want to proceed with left knee replacement. Allergies Allergy/AdvReac Type Severity Reaction Status Date / Time Sulfa (Sulfonamide Allergy Intermediate HIVES Verified 02/25/24 08:00 Antibiotics) Home Medications Medication Instructions Recorded Confirmed Type alendronate 70 mg tablet (Fosamax) 70 mg PO WK 07/10/23 02/25/24 History ergocalciferol (vitamin D2) 50,000 50,000 unit PO WK 07/10/23 02/25/24 History unit tablet [id number]-llw-[id number] 5 mg-zeaxanth 4 cap PO QAM 07/10/23 02/25/24 History 1 mg-bilberry 7.5 mg-herbal capsule (Macular Health Formula) Lavern Britton #1 ea 06/04/24 10/30/24 Rx acetaminophen 500 mg tablet 1,000 mg (2 x 500 mg) PO TID pain 08/16/23 02/25/24 Rx (Tylenol Extra Strength) 30 days #180 tabs duloxetine 20 mg capsule,delayed 20 mg PO QAM 01/06/24 02/25/24 History release (Cymbalta) pantoprazole 20 mg tablet,delayed 20 mg PO DAILY 01/06/24 02/25/24 History release (Protonix) tramadol 25 mg tablet 25 mg PO Q6H PRN prn 01/06/24 02/25/24 History Past Med/Surg History Problem List Encounter for pre-operative examination Degenerative arthritis of knee, bilateral Medical History History of GI bleed (~08/2023) 08/2023 due to gastric ulcers, occurred one week after hip replacement, no issues currently, not following with gastro currently Osteoarthritis Bilateral knees, left hip History of colorectal cancer (~1997) diagnosed 1997--s/p partial colon resection, chemo/radiation History of COVID- (~2020) 2020--mild symptoms, no symptoms now History of postoperative nausea and vomiting Surgical History History of total left hip replacement History of benign breast biopsy History of total hysterectomy with bilateral salpingo-oophorectomy (BSO) History of total right hip replacement History of colonoscopy History of cholecystectomy History of colon resection 1997 History of tooth extraction all teeth removed History of bilateral cataract extraction Family History Other No family history of adverse response to anesthesia Social History Smoking Status: Never smoker Second Hand Exposure: No; Do You Dip or Chew Tobacco: No; Tobacco Cessation Education Requested by Patient: No Hx Alcohol Use: Yes Alcohol type: wine Hx Substance Use: No Preferred Language: Ukrainian Communication Ability: Effective Control Systems Eng Required: No Beliefs That Will Affect Care: None Current Living Situation: Alone Other Information That Helps Us Care for You: No Feels Safe at Home: Yes Safety Concerns: Feels Safe At This Time Assistive Devices: Denture - Upper and Denture - Lower Review of Systems All systems reviewed & are unremarkable except as noted in HPI & below. Physical Exam . Physical examination reveals a pleasant frail elderly female. Looks be in pretty good health. Examination of both knees reveal patient ambulates independently. She got varus alignment to both knees. Got bony hypertrophy medially. Range of motion of the left is about 10-1 20 and the right is 5-1 25. No particular pain with hip motion on either side. She is neurologically intact. No instability. Constitutional WD/WN, vitals as above Respiratory normal respiratory effort, lungs clear to auscultation Cardiovascular RRR, no murmur, no edema Gastrointestinal (Abdomen) normal bowel sounds, soft, nontender, no hepatosplenomegaly Results & Data Results & Data Laboratory Results . Diagnostic Findings . X-rays of the left knee were reviewed. Shows advanced left knee medial compartment arthritis. Stress complete loss of medial joint space. She has subchondral sclerosis. She has similar but less severe disease on the right side. PG Care Time/CCT Total # of Minutes Spent Total Time Spent with Patient: Total time spent is greater than 50% in coordination of care (as documented) at patient's floor/unit and/or counseling patient: Coding Level of Care Code None Diagnoses Degenerative arthritis of knee, bilateral M17.0 History of total right hip replacement Z96.641 History of total left hip replacement Z96.642 History of GI bleed Z87.19
--- OUTSIDE RECORDS SUMMARY | 2024-03-30 05:26 | External Medical Summary | Summary of Care ---
Author Name Unknown Organization [facility] [address] [address] Phone [phone] Care Team Providers Care Custom Frame Assembler Name Role Phone Sammi Solo DO Primary Care Provider Reason for Visit * Reason Onset Date Comments Medication Refill 03/15/2024 Encounter Details Date Type Department Care Team (Late st Contact Info) Description 03/15/2024 Refill Family Practice [facility] [address] [facility] [place] [address] [facility]ammi Solo [facility] [address] [facility] [address] Allergies Active Allergy Reactions Criticality Noted Date Comments Sulfa Antibiotics Hives 02/03/2012 documented as of this encounter (statuses as of 03/15/2024) Medications Multiple Vitamins-Minera ls (EYE VITAMINS & MINERALS) TABSIndications :daily 1 Tab. Indications: daily Active amoxicillin (AMOXIL) 500 MG Capsule TAKE FOUR CAPSULES BY MOUTH ONE HOUR BEFORE DENTAL WORK 0 Active Pantoprazole Sodium 40 MG Oral Tablet Delayed Release (Protonix)Indic ations:Gastroin testinal hemorrhage associated with duodenal ulcer Take 1 Tablet by mouth in the morning. 90 Tablet 3 4 Active traMADol HCl 50 MG Oral Tablet (Ultram)Indicat ions:Generalize d osteoarthritis, DDD (degenerative disc disease), lumbar Take 1 Tablet by mouth every 6 hours as needed for Pain, Severe. 90 Tablet 3 4 Active Vitamin D3 1.25 MG (20313 UT) Oral CapsuleIndicati ons:Vitamin D deficiency Take 1 Capsule by mouth once a week. 12 Capsule 5 Active DULoxetine HCl 30 MG Oral Capsule Delayed Release Particles (Cymbalta) Take 1 Capsule by mouth every evening. Do not cut, crush or chew 30 Capsule 5 5 Active Acetaminophen 500 MG Oral Tablet (Tylenol) Take 2 Tablets by mouth in the morning and 2 Tablets before bedtime. 5 Active Alendronate Sodium 70 MG Oral Tablet (Fosamax) Take 1 Tablet by mouth once a week. with 8 oz. water 30 minutes before first meal of the day. Remain upright for 30 min after taking tablet 5 Tablet 11 5 Active Alendronate Sodium 70 MG Oral Tablet (Fosamax) Take 1 Tablet by mouth once a week. with 8 oz. water 30 minutes before first meal of the day. Remain upright for 30 min after taking tablet 5 Tablet 11 4 03/15/19 25 Discontinu ed(Refill) documented as of this encounter (statuses as of 03/15/2024) Active Problems Problem Noted Date Diagnosed Date Major depressive disorder with single episode Age-related osteoporosis wit hout current pathological fracture 03/10/2023 History of colon cancer 03/10/2023 History of partial colectomy 03/10/2023 Cyst of pancreas 01/09/2022 DDD (degenerative disc disease), lumbar 01/20/20 17 Cystocele, midline 01/19/2017 Recurrent UTI 01/19/2017 Prediabetes 02/20/2014 Vitiligo 11/25/2000 GENERAL OSTEOARTHROSIS 11/24/2000 documented as of this encounter (statuses as of 03/15/2024) Resolved Problems Problem Noted Date Diagnosed Date Resolved Date Unspecified inflammatory spo ndylopathy, site unspecified 04/30/2018 06/30/2019 ADVANCE DIRECTIVE INFORMATION 06/12/2005 01/19/2017 Overview (06/12/2005): No, Advance Directive brochure given to patient. 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 01/09/2022 Overview (11/24/2000): March,, surgery, radiation and chemo documented as of this encounter (statuses as of 03/15/2024) Immunizations Name Administration Dates Next Due COVID-19 mRNA, LNP-s, No Pre serve, 2-Dose Series (Pfizer) 02/14/2021,04/21/2020,03/31/2020 Pneumococcal Conjugate Vacc, 13 Valent (Prevnar) 01/19/2017 Pneumococcal Polysaccharide PPV23 (Pneumovax) 12/19/2011 Seasonal Influenza Vac., MDV , IM, 0.5 mL (Fluzone) 01/24/2014,01/28/2013,11/11/2011 Seasonal Influenza, PF, 6 M & above, IM , (FluLaval or Fluzone) 01/19/2017 Seasonal Influenza, Quadriva lent Hd (Fluzone Hd) 03/20/2023(Deferred: Patient Refused),01/16/2022 Seasonal Influenza, Quadriva lent, No Preserve, IM 01/30/2015 TDAP (age 10 and older)(Boostrix) 11/11/2011 documented as of this encounter Social History Tobacco Use Types Packs/Day Years Used Date Smoking Tobacco: Never Smokeless Tobacco: Never Alcohol Use Standard Drinks/Week Comments Yes 0 (1 standard drink = 0.6 oz pur e alcohol) occ PHQ-2 Answer Date Recorded PHQ Adult Total Score 1 03/11/2024 Hunger Vital Sign Answer Date Recorded Within the past 12 months, y ou worried that your food would run out before you got the money to buy more. Never true 03/09/19 24 Within the past 12 months, t he food you bought just didn't last and you didn't have money to get more. Never true 03/09/2023 Childcare Answer Date Recorded Do you feel overwhelmed with taking care of a child, family member or friend? No 03/09/2023 Does your family need help f inding childcare? (Household - for ages 0-17 years) Not on file 03/09/2023 Clothing Answer Date Recorded Have you been unable to get clothing when it was really needed? No 03/09/2023 Is your family able to get c lothes or diapers when needed? (Household - for ages 0-17 years) Not on file 03/09/2023 Personal Safety Answer Date Recorded Do you feel unsafe or have concerns for your saf ety? No 03/09/2023 Do you have concerns for you r family's safety? (Household - for ages 0-17 years) Not on file 03/09/2023 Utilities Answer Date Recorded Do you have trouble paying y our heating, water, or electric bill? No 03/09/2023 Is your family able to pay t he heat, water, or electric bill? (Household - for ages 0-17 years) Not on file 03/09/2023 Does your family have access to good internet? (Household - for ages 0-17 years) Not on file 03/09/2023 Employment Status Answer Date Recorded Are you unemployed or without regular income? No 03/09/2023 Does the household have a re gular source of income? (Household - for ages 0-17 years) Not on file 03/09/2023 Social Connections Answer Date Recorded How often do you feel lonely or isolated from th ose around you? Never 03/09/2023 Financial Resource Strain Answer Date R ecorded Do you have any trouble payi ng for your medications, or do you think you might in the future? No 03/09/2023 Does your family have troubl e paying for medicine? (Household - for ages 0-17 years) Not on file 03/09/2023 Transportation Needs Answer Date Record ed READ ONLY Do you have troubl e getting a ride to medical visits or work? Never True 03/09/2023 Does your family have a hard time getting a ride to doctors visits? (Household - for ages 0-17 years) Not on file 03/09/2023 Has lack of transportation k ept you from medical appointments, meetings, work, or from getting things needed for daily living? Check all that apply. (Adult - for ages 18 years and over) Not on file 03/09/2023 Do you (or your family) have trouble finding or paying for a ride (transportation)? (Household - for ages 0-17 years) Not on file 03/09/2023 Housing Stability Answer Date Recorded Do you currently live in a s helter or have no steady place to sleep at night? No 03/09/2023 READ ONLY Do you think you a re at risk of becoming homeless? No 03/09/2023 Does your family worry about paying for your home or becoming homeless? (Household - for ages 0-17 years) Not on file 0 03/09/2023 Are you homeless or worried that you might be in the future? (Adult - for ages 18 years and over) Not on file Are you (or your family) marco eless or worried that you might be in the future? (Household - for ages 0-17 years) Not on file Food Insecurity Answer Date Recorded Do you need food for this week? No 03/09/2023 Are you able to get enough f ood for your family? (Household - for ages 0-17 years) Not on file 03/09/2023 Does your family need food t his week? (Household - for ages 0-17 years) Not on file 03/09/2023 Do you always have enough fo od for your family? 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 with 8 oz. water 30 minutes before first meal of the day. Remain upright for 30 min after taking tablet Authorizing Provider: SAMMI SOLO * Telephone Encounter - Sharon Michael LPN - 03/15/2024 4:08 PM ESTPending Prescriptions: Disp Refills Alendronate Sodium 70 MG Oral Tablet (Fosa*5 Tabl*11 Sig: Take 1 Tablet by mouth once a week. with 8 oz. water 30 minutes before first meal of the day. Remain upright for 30 min after taking tablet * Telephone Encounter - Gabby Monteiro OSA - 03/15/2024 10:20 AM EST Did you pend patient's preferred pharmacy and medication before forwarding?yes Pharmacy: [facility] [id number] Pending Prescriptions: Disp Refills Alendronate Sodium 70 MG Oral Tablet (Fos*5 Tabl*11 Sig: Take 1 Tablet by mouth once a week. with 8 oz. water 30 minutes before first meal of the day. Remain upright for 30 min after taking tablet Last Visit: 03/11/2024 (in office), Visit date not found (telemedicine) Next Visit: 05/20/2024 If no future appointments scheduled, and last appointment is greater than a year ago, please schedule patient for a follow-up appointment Last date the medication was ordered: [id number] Is this request for a controlled substance?No Urine Drug Screen:No results found for this or any previous visit. Patient Phone Numbers Labs: Lab Results Component Value Date/Time CREAT 0.5 11/24/2023 08:26 AM CREAT 0.6 06/24/2018 07:35 AM POTASSIUM 4.0 11/24/2023 08:26 AM POTASSIUM 4.2 04/30/2018 11:20 AM TSH 1.67 03/16/2023 08:20 AM TSH 1.75 06/12/2005 09:03 AM LDL 78 11/24/2023 08:26 AM LDL 98 04/19/2015 08:00 AM ALT 17 11/24/2023 08:26 AM ALT 14 06/24/2018 07:35 AM HGBA1C 5.9 (H) 11/24/2023 08:26 AM HGBA1C 5.9 04/19/2015 08:00 AM documented in this encounter Plan of Treatment Upcoming Encounters Date Type Department Care Team (Latest Contact Info) Description 04/05/2024 1:30 PM EST Office Visit Gastroenterology, [facility] [address] [place] [address] Carmen Gillis CRNP [address] [place] [address] 05/20/2024 8:40 AM EDT Office Visit Family Practice [facility] [address] [facility] [place] [address] Sammi Solo DO [address] [facility] [place] [address] 06/07/2024 1:00 PM EDT Hospital Encounter ENDO [facility], Endoscopy Room [facility] [address] [place] [phone] Zelda Locke DO [address] [place] [address] 06/07/2024 1:00 PM EDT - 06/07/2024 1:30 PM EDT Surgery [facility], Endoscopy Room [facility] [address] [place] [phone] Zelda Locke DO [address] [place] [address] COLONOSCOPY FLEXIBLE PROXIMAL DIAGNOSTIC Scheduled Procedures Name Priority Associated Diagnoses Date/Ti me COLONOSCOPY FLEXIBLE PROXIMAL DIAGNOSTIC Recall History of colon polyps 06/07/2024 1:00 PM EDT Health Maintenance Due Date Last Done Comments Zoster Vaccines (1 of 2) 1993 Adult Wellness Visit 2009 DTap/Tdap Vaccines (2 - Td or Tdap) 11/10/2021 11/11/2011 Colonoscopy 01/21/2023 01/21/2018, 01/07, 02/03/2012, Additional history exists COVID-19 Vaccine ( - 2023- season) 2023 02/14/2021, 04/21/2020, 03/31/2020 Influenza Vaccine (FLU shot) (#1) 2023 01/16/2022, 01/19/2017, 01/30/2015, Additional history exists DXA Scan 10/13/2024 10/13/2022, 08/0 09/2022, 01/19/2012, Additional history exists HbA1c 11/23/2024 11/24/2023, 01/0 10/2023, 01/16/2022, Additional history exists Depression Monitoring 03/11/2025 03/11/2024 Pneumococcal Vaccine: 50+ Years Completed 01/19/2017, 12/19/2011 RETIRED - COLONOSCOPY-EVERY 5 YRS AGES 18-100 Discontinued 01/21/2018, 01/21/2018, 02/03/2012, Additional history exists VITAMIN D LEVEL ONCE IN A LIFETIME-USE SMARTSET# [id number] Completed 03/16/2023 HPV (Gardasil) Vaccine Aged Out No lo nger eligible based on patient's age to complete this topic Hepatitis B Vaccine Aged Out No longe r eligible based on patient's age to complete this topic MENINGOCOCCAL (MENACTRA/MENVEO) Aged Out No longer eligible based on patient's age to complete this topic documented as of this encounter Medical Devices Not on filedocumented as of this encounter Care Teams Custom Frame Assembler Relationship Specialty Start Date End Date Sammi Solo DO [address] [place] [address] PCP - General Family Medicine 04/30/18 documented as of this encounter
--- OUTSIDE RECORDS SUMMARY | 2024-03-30 05:26 | External Medical Summary | Summary of Care ---
Author Name Unknown Organization [facility] Address [address] [place] [address] Phone [phone] Care Team Providers Care Produce Sorter Name Role Phone Aurelia Solo DO Primary Care Provider Encounter Details Date Type Department Care Team (Late st Contact Info) Description 03/11/2024 Telephone Family Practice [facility] [place] [address] [place] [address] Aurelia Solo DO 200 [facility] [address] Allergies Active Allergy Reactions Criticality Noted Date Comments Sulfa Antibiotics Hives 02/03/2012 documented as of this encounter (statuses as of 03/11/2024) Medications Multiple Vitamins-Minera ls (EYE VITAMINS & MINERALS) TABSIndications :daily 1 Tab. Indications: daily Active amoxicillin (AMOXIL) 500 MG Capsule TAKE FOUR CAPSULES BY MOUTH ONE HOUR BEFORE DENTAL WORK 08/22/2019 Active Alendronate Sodium 70 MG Oral Tablet (Fosamax) Take 1 Tablet by mouth once a week. with 8 oz. water 30 minutes before first meal of the day. 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 90 Tablet 3 11/24/2023 Active traMADol HCl 50 MG Oral Tablet (Ultram)Indicat ions:Generalize d osteoarthritis, DDD (degenerative disc disease), lumbar Take 1 Tablet by mouth every 6 hours as needed for Pain, Severe. 90 Tablet 3 11/24/2023 Active Vitamin D3 1.25 MG (02849 UT) Oral CapsuleIndicati ons:Vitamin D deficiency Take 1 Capsule by mouth once a week. 12 Capsule 03/11/2024 Active DULoxetine HCl 30 MG Oral Capsule Delayed Release Particles (Cymbalta) Take 1 Capsule by mouth every evening. Do not cut, crush or chew 30 Capsule 5 03/11/2024 Active Acetaminophen 500 MG Oral Tablet (Tylenol) Take 2 Tablets by mouth in the morning and 2 Tablets before bedtime. 03/11/2024 Active documented as of this encounter (statuses as of 03/11/2024) Active Problems Problem Noted Date Diagnosed Date Major depressive disorder with single episode Age-related osteoporosis wit hout current pathological fracture 03/10/2023 History of colon cancer 03/10/2023 History of partial colectomy 03/10/2023 Cyst of pancreas 01/09/2022 DDD (degenerative disc disease), lumbar 01/20/20 17 Cystocele, midline 01/19/2017 Recurrent UTI 01/19/2017 Prediabetes 02/20/2014 Vitiligo 11/25/2000 GENERAL OSTEOARTHROSIS 11/24/2000 documented as of this encounter (statuses as of 03/11/2024) Resolved Problems Problem Noted Date Diagnosed Date Resolved Date Unspecified inflammatory spo ndylopathy, site unspecified 04/30/2018 06/30/2019 ADVANCE DIRECTIVE INFORMATION 06/12/2005 01/19/2017 Overview (06/12/2005): No, Advance Directive brochure given to patient. 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 01/09/2022 Overview (11/24/2000): March,, surgery, radiation and chemo documented as of this encounter (statuses as of 03/11/2024) Immunizations Name Administration Dates Next Due COVID-19 mRNA, LNP-s, No Pre serve, 2-Dose Series (Global Roaming) 02/14/2021,04/21/2020,03/31/2020 Pneumococcal Conjugate Vacc, 13 Valent (Prevnar) [...] encounter Miscellaneous Notes * Telephone Encounter - Nanci Ramirez metal or wood blocker - 03/11/2024 10:24 AM EST Released Rx to pharmacy Nanci Ray Film Archivist [facility] 03/11/2024,10:24 AM * Telephone Encounter - Yvon Ellis PHARM Tech - 03/11/2024 9:58 AM EST Patients insurance would like to inform the office that Vitamin D3 1.25 MG (16511 UT) Oral Capsule is denied because excluded. They will fax this info to the office, please review and resubmit if appropriate. Thank you, Yvon Ellis Furnace Stock Inspector [facility] 03/11/2024, 9:58 AM documented in this encounter Plan of Treatment Upcoming Encounters Date Type Department Care Team (Latest Contact Info) Description 04/05/2024 1:30 PM EST Office Visit Gastroenterology, [facility] [address] [place] [phone] Carmen Gillis CRNP [address] [place] [address] 05/20/2024 8:40 AM EDT Office Visit Family Practice [facility] [address] [place] [address] Aurelia Solo, DO 200 [facility] [place] [address] 06/07/2024 1:00 PM EDT Hospital Encounter ENDO [facility], Endoscopy Room [facility] [address] [place] [phone] Zelda Locke DO [address] [place] [address] 06/07/2024 1:00 PM EDT - 06/07/2024 1:30 PM EDT Surgery ENDO [facility], Endoscopy Room [facility] [address] [place] [phone] Zelda Locke DO [address] [place] [address] COLONOSCOPY FLEXIBLE PROXIMAL DIAGNOSTIC Scheduled Procedures Name Priority Associated Diagnoses Date/Ti me COLONOSCOPY FLEXIBLE PROXIMAL DIAGNOSTIC Recall History of colon polyps 06/07/2024 1:00 PM EDT Health Maintenance Due Date Last Done Comments Zoster Vaccines (1 of 2) 1993 Adult Wellness Visit 2009 DTap/Tdap Vaccines (2 - Td or Tdap) 11/10/2021 11/11/2011 Colonoscopy 01/21/2023 01/21/2018, 01/07, 02/03/2012, Additional history exists COVID-19 Vaccine (4 - 2024-25 season) 2023 02/14/2021, 04/21/2020, 03/31/2020 Influenza Vaccine (FLU shot) (#1) 2023 01/16/2022, 01/19/2017, 01/30/2015, Additional history exists DXA Scan 10/13/2024 10/13/2022, 08/0 09/2022, 01/19/2012, Additional history exists HbA1c 11/23/2024 11/24/2023, 0 10/2023, 01/16/2022, Additional history exists Depression Monitoring 03/11/2025 03/11/2024 Pneumococcal Vaccine: 50+ Years Completed 01/19/2017, 12/19/2011 RETIRED - COLONOSCOPY-EVERY 5 YRS AGES 18-100 Discontinued 01/21/2018, 01/21/2018, 02/03/2012, Additional history exists VITAMIN D LEVEL ONCE IN A LIFETIME-USE SMARTSET# [id number] Completed 03/16/2023 HPV (Gardasil) Vaccine Aged Out [...] filedocumented as of this encounter Care Teams Produce Sorter Relationship Specialty Start Date End Date Aurelia Solo DO [address] [place] [address] PCP - General Family Medicine 04/30/18 documented as of this encounter
--- OUTSIDE RECORDS SUMMARY | 2024-03-30 05:26 | External Medical Summary | Summary of Care ---
Author Name Unknown Organization [facility] Address [address] [place] [address] Phone [phone] Care Team Providers Care Corn Chip Maker Name Role Phone Aurelia Solo DO Primary Care Provider Encounter Details Date Type Department Care Team (Late st Contact Info) Description 03/28/2024 Population Health External Data Unspecified Department Allergies Active Allergy Reactions Criticality Noted Date Comments Sulfa Antibiotics Hives 02/03/2012 documented as of this encounter (statuses as of 03/28/2024) Medications Multiple Vitamins-Minera ls (EYE VITAMINS & MINERALS) TABSIndications :daily 1 Tab. Indications: daily Active amoxicillin (AMOXIL) 500 MG Capsule TAKE FOUR CAPSULES BY MOUTH ONE HOUR BEFORE DENTAL WORK 08/22/2019 Active Pantoprazole Sodium 40 MG Oral Tablet [...] 3 11/24/2023 Active Vitamin D3 1.25 MG (44388 UT) Oral CapsuleIndicati ons:Vitamin D deficiency Take [...] and 2 Tablets before bedtime. 03/11/2024 Active Alendronate Sodium 70 MG Oral Tablet (Fosamax) Take 1 Tablet by mouth once a week. with 8 oz. water 30 minutes before first meal of the day. Remain upright for 30 min after taking tablet 5 Tablet 11 03/15/2024 Active documented as of this encounter (statuses as of 03/28/2024) Active Problems Problem Noted Date Diagnosed Date Major depressive disorder with single episode Age-related osteoporosis wit hout current pathological fracture 03/10/2023 History of colon cancer 03/10/2023 History of partial colectomy 03/10/2023 Cyst of pancreas 01/09/2022 DDD (degenerative disc disease), lumbar 01/20/20 17 Cystocele, midline 01/19/2017 Recurrent UTI 01/19/2017 Prediabetes 02/20/2014 Vitiligo 11/25/2000 GENERAL OSTEOARTHROSIS 11/24/2000 documented as of this encounter (statuses as of 03/28/2024) Resolved Problems Problem Noted Date Diagnosed Date Resolved Date Unspecified inflammatory spo ndylopathy, site unspecified 04/30/2018 06/30/2019 ADVANCE DIRECTIVE INFORMATION 06/12/2005 01/19/2017 Overview (06/12/2005): No, Advance Directive brochure given to patient. 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 01/09/2022 Overview (11/24/2000): March,, surgery, radiation and chemo documented as of this encounter (statuses as of 03/28/2024) Immunizations Name Administration Dates Next Due COVID-19 mRNA, LNP-s, No Pre serve, 2-Dose Series (BioPetroClean) 02/14/2021,04/21/2020,03/31/2020 Pneumococcal Conjugate Vacc, 13 Valent (Prevnar) [...] on file documented as of this encounter Plan of Treatment Upcoming Encounters Date Type Department Care Team (Latest Contact Info) Description 04/05/2024 1:30 PM EST Office Visit Gastroenterology, [facility] [address] [place] [address] Carmen Gillis CRNP [address] [place] [address] 05/20/2024 8:40 AM EDT Office Visit Family Practice [facility] [address] [facility] [place] [address] Aurelia Solo, DO [address] [facility] [place] [address] 06/07/2024 1:00 PM EDT Hospital Encounter ENDO [facility], Endoscopy Room [facility] [address] [place] [phone] Zelda Locke, [address] [place] [address] 06/07/2024 1:00 PM EDT - 06/07/2024 1:30 PM EDT Surgery ENDO [facility], Endoscopy Room [facility] [address] [place] [phone] Zelda Locke, [address] [place] [address] COLONOSCOPY FLEXIBLE PROXIMAL DIAGNOSTIC Scheduled Procedures Name Priority Associated Diagnoses Date/Ti me COLONOSCOPY FLEXIBLE PROXIMAL DIAGNOSTIC Recall History of colon polyps 06/07/2024 1:00 PM EDT Health Maintenance Due Date Last Done Comments Zoster Vaccines (1 of 2) 1993 Adult Wellness Visit 2009 DTap/Tdap Vaccines (2 - Td or Tdap) 11/10/2021 11/11/2011 Colonoscopy 01/21/2023 01/21/2018, 01/07, 02/03/2012, Additional history exists COVID-19 Vaccine ( season) 2023 02/14/2021, 04/21/2020, 03/31/2020 Influenza Vaccine (FLU shot) (#1) 2023 01/16/2022, 01/19/2017, 01/30/2015, Additional history exists DXA Scan 10/13/2024 10/13/2022, 080 09/2022, 01/19/2012, Additional history exists HbA1c 11/23/2024 11/24/2023, 0 10/2023, 01/16/2022, Additional history exists Depression Monitoring 03/11/2025 03/11/2024 Pneumococcal Vaccine: 50+ Years Completed 01/19/2017, 12/19/2011 RETIRED - COLONOSCOPY-EVERY 5 YRS AGES 18-100 Discontinued 01/21/2018, 01/21/2018, 02/03/2012, Additional history exists VITAMIN D LEVEL ONCE IN A LIFETIME-USE SMARTSET# [id number] Completed 03/16/2023 HPV (Gardasil) Vaccine Aged Out [...] filedocumented as of this encounter Care Teams Corn Chip Maker Relationship Specialty Start Date End Date Aurelia Solo DO [address] [place] [address] PCP - General Family Medicine 04/30/18 documented as of this encounter
[2024-03-30] MEDS: FAMOTIDINE 20 MG TAB PO SCH (05:59)
[2024-03-30] MEDS: dexAMETHasone**PF** 10 MG/ML VIAL IV SCH (05:59)
[2024-03-30] MEDS: METOCLOPRAMIDE HCL 10 MG TABLET PO SCH (05:59)
[2024-03-30] MEDS: LR 500ML BOLUS, THEN 15ML/HR IV SCH (06:00)
[2024-03-30] MEDS: LR 60ML/HR IV SCH (06:00)
[2024-03-30] MEDS ORDERED: CeleBREX 200 MG CAP PO SCH (06:00)
[2024-03-30] MEDS: ACETAMINOPHEN 500 MG TAB PO SCH ×2 (06:00→15:52)
[2024-03-30] MEDS ORDERED: ROPIVACAINE 0.5% 5 MG/ML 30 ML VIAL ONE (06:22)
[2024-03-30] MEDS ORDERED: BUPIVACAINE 0.5 % 5 MG/1 ML PF 10ML VIAL ONE (06:22)
[2024-03-30] MEDS ORDERED: LIDOCAINE 2% 2 ML VIAL/AMP(20MG/ML) INFIL ONE (06:28)
[2024-03-30] MEDS ORDERED: ONDANSETRON INJ 2 MG/ML 2 ML VIAL ONE (06:28)
[2024-03-30] MEDS ORDERED: MIDAZOLAM HCL 1 MG/ML 2ML VIAL ONE (06:28)
[2024-03-30] MEDS ORDERED: PROPOFOL IV EMULSION 10 MG/ML 20 ML VIAL IV ONE (06:28)
[2024-03-30] MEDS ORDERED: ePHEDrine sulfate 50 MG/5 ML SYR ONE (06:41)
[2024-03-30] MEDS ORDERED: PHENYLEPHRINE 100MCG/ML 5ML SYR ONE (06:41)
--- NOTE | 2024-03-30 06:52 | History & Physical Bridge Note ---
Date of Service March 30, 2024 History & Physical Bridge Note I have examined the patient, reviewed the History & Physical and in the interval since the performance of the History & Physical I have noted the following changes of clinical significance: no changes noted
[2024-03-30] MEDS: ceFAZolin 2000MG 2,000 MG/15 ML SYR IV SCH (07:00)
[2024-03-30] MEDS ORDERED: ATROPINE SULFATE 0.1 MG/ML 10ML SYR IV PRN (07:11)
[2024-03-30] MEDS ORDERED: PROMETHAZINE HCL 6.25 MG in SODIUM CHLORIDE 0.9% 50 ML IV PRN (07:11)
[2024-03-30] MEDS ORDERED: ePHEDrine sulfate 50 MG/ML AMP IV PRN (07:11)
[2024-03-30] MEDS ORDERED: DROPERIDOL 5 MG/2 ML VIAL IV PRN (07:11)
[2024-03-30] MEDS ORDERED: HYDROmorphone INJ 1 MG/ML SYRINGE IV PRN (07:11)
[2024-03-30] MEDS: ORTHO JOINT ANESTHETIC ONE (07:36)
[2024-03-30] MEDS: ROPIV 0.5% 246mg, Ketorolac 30mg, EPINEPHrine 0.5mg in NSS INFIL SCH (07:36)
[2024-03-30] MEDS: TRANEXAMIC ACID 1,000 MG **IV Intra-op IV SCH (07:46)
--- NOTE | 2024-03-30 08:46 | Operative Report ---
PG Post Operative Report Pre & Post Diagnosis Operation Date: 03/30/24 07:00 Pre-Op Diagnosis: Left Knee Degenerative Joint Disease Post-Op Diagnosis: Left Knee Degenerative Joint Disease I identified the patient and participated in the time-out.: Yes Procedure Operation Date: 03/30/24 07:00 Actual Procedures p Left Total Knee Arthroplasty(Left) - Renny Briggs MD Surgeon Renny Briggs MD Fuel Storage Technician Rmairez Sotelo PA-C Estimated Blood Loss 50 Findings Consistent with Post-Op Diagnosis Operative findings were advanced left knee medial compartment arthritis. She had extensive grade 4 [id number] disease and eburnation of the medial femoral condyle medial tibial plateau with a fixed varus deformity and large osteophytes medially. Moderate-sized joint effusion. Specimens Left knee sent for pathology. Anesthesia Type Spinal MAC Complications none Disposition Accompanied Patient To Recovery: No Indications The patient is a 78-year-old fairly active female whose had a long history of multiple orthopedic joint problems. 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 She become more debilitated by her knee pain. The left knee was bothering more than the right. X-rays show advanced knee arthritis. She failed conservative measures and elected proceed with left total knee arthroplasty. Description of Procedure Operative implants consist of: 1 Biomet Vanguard size 65 left posterior stabilized femoral component. 2. Biomet size 67 tibial tray. 3. 10 mm posterior stabilized polyethylene insert. 4. 28 x 8 all poly patella. The patient was taken the op room, identified, placed on the operating table in the supine position. All conductors were appropriately padded. IV antibiotics fibra anesthesia team. Spinal anesthetic and adductor canal block had been provided in the holding area. A Ahumada catheter was placed in sterile fashion. A left thigh turn was then placed. The left lower extremity was then prepped and draped in usual sterile fashion. The left leg was elevated and exsanguinated with use of an Esmarch and a turn was placed at 300 mmHg. An anterior approach to the left knee was then performed to longitudinal incision centered over the patella. Sharp dissection was got through subcutaneous tissue down the extensor mechanism. A medial parapatellar arthrotomy incision was made. Some subperiosteal dissection was carried out medially. The fat pad was resected from Neath patella tendon. Lateral patellofemoral ligament was released. Patella subluxated laterally and the knee was flexed. The osteophytes taken off distal femur. The ACL and PCL were then released from the distal femur and the tibia subluxated anteriorly. The external tibial alignment jig was then placed on the anterior face of the tibia and adjusted 14 mm medially. Proximal tibial cut was made to remove at most millimeter bone from most efficient aspect medial tibial plateau. Some osteophytes taken off medial and posterior medially. The tibia sized to a size 67. Attention then drawn the femur. The distal femur examined the sharp drill. Intramedullary canal was suction. A left 5 degree valgus cutting guide was placed. The distal femoral cutting block was pinned in place. Distal femoral cut was made to take an additional 3 mm of bone off distal femur. The femur was then sized to a size 65. We downsized this almost an entire size due to the very narrow medial and lateral dimensions. The AP cutting block was placed parallel to the epicondylar axis which was 5 degrees of external rotation. The anterior cut, anterior chamfer, posterior cut, posterior chamfer cuts were made. The box cutting guide was placed and adjusted slightly laterally. The box cut was made. The knee was flexed. The remnants of the medial and lateral menisci were excised. The osteophytes taken off the posterior aspect of femur. A trial femoral component was placed. The tibial tray was pinned Kathy external rotation and the drill and stem point to use great defect in proximal tibia for the tibial tray. Knee was then trialed and the 10 mm insert fit most appropriately. Attention drawn the patella. The patella was cleaned of all soft tissue. Patella thickness measured 20 mm in thickness was cut down to 14. Was sized to a size 28 patella. The lug holes were drilled for the 28 patella. The lateral osteophytes removed. Patella but ton was placed. Knee was taken through range of motion patella tracked nicely with no thumbs test. Attention drawn to place the permanent components. All trial components removed. Bone plug was placed into this femur limit blood loss. Double batch Palacos G cement was mixed. A Biomet Vanguard size 65 left posterior stabilized femoral component, a size 67 tibial tray, 10 mm posterior stabilized polyethylene insert, and a 28 x 8 all poly patella then cemented in place. The knee was brought out into full extension till cement hardened. Final cement check was then performed. Pericapsular tissues were injected with total 100 cc of Ortho mix. The patient did receive 1 g of tranexamic acid. The tourniquet was let down for final turn time 52 minutes. Hemostasis surgeries electrocautery. Extensor Metros then closed combination 1 PDS suture and 1 Vicryl suture in fyqzyh-[id number] fashion. Extensor Meclomen checked found to be intact. Subcutaneous tissue was then closed with 2 Dexon suture in a buried interrupted fashion skin was closed skin jagjit. Leg was then cleaned and dried and a sterile dressing with Xeroform, 4 fours, sterile cast padding, Lamine bandage were applied. Patient then transferred to the recovery room in stable condition. Patient tolerated procedure well and there were no complications. Ramirez Sotelo, my physician insurance assistant, was present for the entire procedure. His assistance was essential and required for appropriate patient positioning, prepping and draping, surgical exposure, performing the technical details of the operation, placement the implants, closure of the wound, and placement of the sterile bandage. I attest to the content of the Intraoperative Record and any orders documented therein. Any exceptions are noted below.
--- NOTE | 2024-03-30 09:06 | XRay Report ---
XR knee LT 1 or 2V routine CLINICAL HISTORY: Surgical Post Op COMPARISON: None FINDINGS: Left knee prosthesis shows no hardware complication. There is expected soft tissue gas. Sk in jagjit are present. IMPRESSION: Unremarkable postoperative exam. ACT 112: Negative or not required by law. Electronically signed by: Kemar Hendricks M.D. 03/30/2024 9:05 AM
[2024-03-30] MEDS: METOPROLOL TARTRATE 1 MG/ML VIAL IV STA ×2 (09:22→12:08)
[2024-03-30] MEDS: METOPROLOL TARTRATE 1 MG/ML VIAL IV ONE (09:23)
--- NOTE | 2024-03-30 11:42 | Electrocardiogram Report ---
Test Reason : Blood Pressure : */* mmHG Vent. Rate : 115 BPM Atrial Rate : 115 BPM P-R Int : 196 ms QRS Dur : 72 ms QT Int : 454 ms P-R-T Axes : 28 63 68 degrees QTcB Int : 628 ms Atrial flutter Prolonged QT Abnormal ECG When compared with ECG of 29-Aug-2023 15:44, Nonspecific T wave abnormality now evident in Anterior leads Confirmed by Oni Bonds ([id number]) on 03/30/2024 11:41:27 AM Referred By: Renny Briggs Confirmed By: Oni Bonds
[2024-03-30 12:32] LABS: Mean Corpuscular Hemoglobin 29.1 pg (25.0-34.0); Mean Corpuscular Hgb Conc 34.3 g/dL (32.0-36.0); Mean Corpuscular Volume 84.7 fL (80.0-100.0); Mean Platelet Volume 8.5 fL (9.4-12.4); Platelet Count 238 K/uL (130-400); RDW Coefficient of Variation 12.1 % (11.5-14.5); RDW Standard Deviation 37.3 fL (36.4-46.3); Red Blood Count 4.13 M/uL (4.20-5.40); White Blood Count 6.88 K/ul (4.8-10.8)
[2024-03-30 12:50] LABS: Albumin Globulin Ratio 2.2 (0.9-2); Albumin Level 3.9 gm/dl (3.4-5.0); BUN Creatinine Ratio 32.6 (10-20); Bilirubin,Total 0.5 mg/dl (0.2-1.0); Calcium 8.7 mg/dl (8.6-10.3); Creatinine Clr Calc Pharmacy 84.2 ml/min; Globulin 1.8 gm/dl (2.5-4.0); Magnesium 1.5 mg/dl (1.7-2.4); Potassium 3.5 mmol/L (3.5-5.1); Total Protein 5.7 gm/dl (6.0-8.3)
[2024-03-30] MEDS ORDERED: POTASSIUM CHLORIDE 10 MEQ TABCR PO STA (12:54)
--- NOTE | 2024-03-30 12:56 | Consultation ---
Date of Consultation March 30, 2024 Assessment & Plan (1) Sinus tachycardia: (2) Degenerative arthritis of knee, bilateral: Plan This is an 78-year-old female with significant past medical history of prediabetes, recurrent UTI, history of colon cancer status post partial col ectomy, osteoporosis and depression who presents for elective L TKA by Dr. Briggs. #Osteoarthritis of L Knee #S/P L TKA by Dr. Briggs, POD #0 EBL 50ml pain/wound management per ortho activity and therapy as per ortho Xarelto for DVT ppx per ortho - will continue for now until determined if pt to be anticoagulated for possible atrial flutter #Post op atrial flutter confirmed by Dr. Bonds on ecg currently pt appears to be in sinus tach on monitor will give IVF Bolus x 1, check cbc, bmp, mag, tsh Keep K and Mag > 4.0 and 2.0 respectively - will replace repeat ECG now - shows 95 NSR, this is after 5mg of IV metoprolol Pt w/o prior hx - current [id number] is 3 with age, F if persistent will consult cardiology and initiate metoprolol, but appears has resolved obtain echo and monitor on tele #Prolonged QTC monitor on ecg avoid qtc prolonging meds, repeat ecg QTC has normalized #Pre DM a1c 5.9 in november currently not on meds #Hx of colon ca s/p colectomy #Hx of GIB per pt 2/2 ulcer - on PPI #IPMN: follows GI for routine surveillance DVT ppx: Xarelto per ortho FULL CODE PCP: Dr. Solo Dispo: per primary Thank you for this consultation. We will follow the patient with you during their hospital stay. You can reach a member of the [facility] Hospitalist Team 29/09 via hospitalist role on tiger text. I spent a total of 30 minutes coordinating, documenting and providing care for this patient excluding time spent in the performance of separately billed services or time spent by another provider/QHP. Pt was seen and examined in collaboration with Dr. Devlin, please see addendum Supervising Physician Co-Signing Physician Notes I have seen and discussed the case with the collaborating advanced practitioner. I agree with the above H&P. I have reviewed and confirmed the patients medical history, the findings on physical examination, and the patients diagnosis and treatment plan with Tamiko KAPLAN and agree with the information documented. In short, Ms. Lane is an 78 yo woman who is s/p L TKA noted to be tachycardic post operative. EKG was read as a flutter, however, upon independent review and exam it is seemingly sinus tachycardia. Patient bolus and given lopressor. Will monitor on pcu overnight on telemetry. No further interventions for now. GENERAL APPEARANCE: AxOx4, generally well-appearing female no acute distress. HEENT: NC, AT. MMM. EOMI, clear conjunctiva, oropharynx clear. NECK: Supple without lymphadenopathy. No stiffness or restricted ROM. HEART: tachycardic, but regular rhythm, sinus on monitor LUNGS: CTAB, moving air well. No crackles or wheezes are heard. ABDOMEN: Soft, nontender, nondistended with good bowel sounds heard. BACK: No CVAT, no obvious deformity. EXTREMITIES: Without cyanosis, clubbing or edema. NEUROLOGICAL: Grossly nonfocal. Alert and oriented, moving all 4 extremities. CN not formally tested but appear grossly intact. Observed to ambulate with normal gait. Skin: Warm and dry without any rash. Agree with above plan I spent a total of 20 minutes coordinating, documenting, and providing care for this patient excluding time spent in the performance of separately billed services. All of the aforementioned completed outside of collaborating with the assigned advanced practitioner for a full treatment plan. I have reviewed the advanced practitioner's documentation, and I agree with, and take responsibility for the plan of care History of Present Illness Requesting Physician: Dr. Briggs Reason for Consultation: Dr. Briggs Attending Physician: Renny Briggs MD History of Present Illness This is an 78-year-old female with significant past medical history of prediabetes, recurrent UTI, history of colon cancer status post partial colectomy, osteoporosis and depression who presents for elective L TKA by Dr. Briggs. She tolerated the procedure well. Post operatively pt was tachycardic and there was concern for atrial flutter. Her HR were in the 120-130s. Pt denies feeling heart palpitations, cp, sob, dizziness, lightheadedness, diaphoresis or nausea. Up until today she was doing well in her normal state of health w/o concerns. She has never had any cardiac arrhythmias in the past. She reports living alone. She is typically independent with walking. She denies tobacco use but occasionally drinks alcohol. She reports taking her morning medications. Pt was seen in PACU. She was w/o complaint. She denies any knee pain. Her HR was in 120s, but otherwise hemodynamically stable. On monitor she appears to be in sinus tach. Allergies Allergy/AdvReac Type Severity Reaction Status Date / Time Sulfa (Sulfonamide Allergy Intermediate HIVES Verified 03/30/24 05:43 Antibiotics) Home Medications Medication Instructions Recorded Confirmed Type alendronate 70 mg tablet (Fosamax) 70 mg PO ESPINAL 07/10/23 03/30/24 History ergocalciferol (vitamin D2) 50,000 50,000 unit PO WK 07/10/23 03/30/24 History unit tablet [id number]-[id number] 5 mg-zeaxanth 4 cap PO QAM 07/10/23 03/30/24 History 1 mg-bilberry 7.5 mg-herbal capsule (Macular Health Formula) Lavern Britton #1 ea 08/11/23 01/06/24 Rx pantoprazole 20 mg tablet,delayed 20 mg PO DAILY 01/06/24 03/30/24 History release (Protonix) tramadol 25 mg tablet 25 mg PO Q6H PRN prn 01/06/24 03/30/24 History cefadroxil 500 mg capsule 500 mg PO BID 7 days #14 caps 03/28/24 03/30/24 Rx ondansetron 4 mg disintegrating 4 mg PO Q8 PRN nausea #20 tabs 03/28/24 03/30/24 Rx tablet rivaroxaban 10 mg tablet (Xarelto) 10 mg PO DAILY prevent blood clots 03/28/24 03/30/24 Rx 30 days #30 tabs sennosides 8.6 mg tablet (Senokot) 8.6 mg PO BID prevent constipation 03/28/24 03/30/24 Rx 14 days #28 tabs tramadol 50 mg tablet 50 - 100 mg (1 - 2 x 50 mg) PO Q8H 03/28/24 03/30/24 Rx PRN pain #40 tabs acetaminophen 500 mg tablet 1,000 mg PO [facility]HS pain 03/30/24 03/30/24 History (Tylenol Extra Strength) duloxetine 30 mg capsule,delayed 30 mg PO HS 03/30/24 03/30/24 History release Patient History Medical History History of GI bleed (~08/2023) 08/2023 due to gastric ulcers, occurred one week after hip replacement, no issues currently, not following with gastro currently Osteoarthritis Bilateral knees, left hip History of colorectal cancer (~1997) diagnosed 1997--s/p partial colon resection, chemo/radiation History of COVID-19 (~2020) 2020--mild symptoms, no symptoms now History of postoperative nausea and vomiting Surgical History History of total left hip replacement History of benign breast biopsy History of total hysterectomy with bilateral salpingo-oophorectomy (BSO) History of total right hip replacement History of colonoscopy History of cholecystectomy History of colon resection 1997 History of tooth extraction all teeth removed History of bilateral cataract extraction Family History Other No family history of adverse response to anesthesia Social History Smoking Status: Never smoker Second Hand Exposure: No; Do You Dip or Chew Tobacco: No; Tobacco Cessation Education Requested by Patient: No Hx Alcohol Use: Yes Alcohol type: wine Hx Substance Use: No Preferred Language: Uzbek Communication Ability: Effective 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 Devlin addendum for physical exam findings. Results & Data Vital Signs (Past 12 Hours) Vital Signs Temp Pulse Pulse Resp BP BP Pulse Ox 03/30/24 12:08 119 H 120/76 03/30/24 11:44 123 H 14 123/82 94 03/30/24 11:30 122 H 18 131/86 93 03/30/24 11:15 121 H 14 142/93 H 95 03/30/24 11:00 120 H 14 135/86 93 03/30/24 10:50 116 H 12 136/85 93 03/30/24 10:40 112 H 14 134/83 92 03/30/24 10:30 118 H 14 134/89 92 03/30/24 10:20 120 H 16 140/88 94 03/30/24 10:10 121 H 12 139/88 93 03/30/24 10:00 117 H 14 137/90 93 03/30/24 09:50 116 H 15 137/90 92 03/30/24 09:40 117 H 15 151/92 H 94 03/30/24 09:30 36.6 C 110 H 18 143/89 H 96 03/30/24 09:22 121 H 147/91 H 03/30/24 09:20 116 H 13 147/91 H 93 03/30/24 09:10 113 H 13 142/88 H 94 03/30/24 09:00 110 H 13 156/96 H 100 03/30/24 08:50 112 H 22 170/100 H 100 03/30/24 08:40 36.3 C L 113 H 22 175/106 H 96 03/30/24 05:47 36.8 C 122 H 20 173/106 H 96 O2 Del Method O2 Flow Rate 03/30/24 12:08 03/30/24 11:44 Room Air 03/30/24 11:30 Room Air 03/30/24 11:15 Room Air 03/30/24 11:00 Room Air 03/30/24 10:50 Room Air 03/30/24 10:40 Room Air 03/30/24 10:30 Room Air 03/30/24 10:20 Room Air 03/30/24 10:10 Room Air 03/30/24 10:00 Room Air 03/30/24 09:50 Room Air 03/30/24 09:40 Room Air 03/30/24 09:30 Room Air 03/30/24 09:22 03/30/24 09:20 Room Air 03/30/24 09:10 Room Air 03/30/24 09:00 Oxymask 4 03/30/24 08:50 Oxymask 8 03/30/24 08:40 Oxymask 8 03/30/24 05:47 Room Air Laboratory Results I have independently reviewed and interpreted patient's admitting labs cbc, bmp, mag Short CBC 03/30/24 Range/Units 12:19 WBC 6.88 (4.8-10.8) K/ul Hgb 12.0 (12.0-16.0) g/dl Hct 35.0 L (37.0-47.0) % Plt Count 238 (130-400) K/uL Diagnostic Findings Knee X-Ray 03/30/24 08:39 XR knee LT 1 or 2V routine CLINICAL HISTORY: Surgical Post Op COMPARISON: None FINDINGS: Left knee prosthesis shows no hardware complication. There is expected soft tissue gas. Skin jagjit are present. IMPRESSION: Unremarkable postoperative exam. ACT 112: Negative or not required by law. Electronically signed by: Kemar Hendricks M.D. 03/30/2024 9:05 AM Medications Administered Current Inpatient Medications Acetaminophen (Acetaminophen 500 Mg Tab) 1,000 mg PO PREOP JULIAN Stop: 03/30/24 18:00 Last Admin: 03/30/24 06:00 Dose: Not Given Atropine Sulfate (Atropine Sulfate 0.1 Mg/Ml 10ml Syr) 0.5 mg IV Q1M PRN PRN Reason: PACU Use-HR<40 &/or Bradycardi Stop: 03/30/24 15:11 Dexamethasone Sodium Phosphate (DexamethasonePf 10 Mg/Ml Vial) 10 mg IV PREOP JULIAN Stop: 03/30/24 18:00 Last Admin: 03/30/24 05:59 Dose: 10 mg Droperidol (Droperidol 5 Mg/2 Ml Vial) 0.625 mg IV ONCE PRN PRN Reason: PACU Use Only for Nausea Stop: 03/30/24 15:11 Ephedrine Sulfate (Ephedrine Sulfate 50 Mg/Ml Amp) 5 mg IV Q5M PRN PRN Reason: PACU Use Only-SBP<90 mmHg Stop: 03/30/24 15:11 Famotidine (Famotidine 20 Mg Tab) 20 mg PO PREOP JULIAN Stop: 03/30/24 18:00 Last Admin: 03/30/24 05:59 Dose: 20 mg Hydromorphone HCl (Hydromorphone Inj 1 Mg/Ml Syringe) 0.25 mg IV Q5M PRN PRN Reason: PACU Use Only-Pain Stop: 03/30/24 15:11 Lactated Ringer's (Lr) 1,000 mls @ 15 mls/hr IV .Q24H JULIAN Stop: 03/30/24 18:00 Last Infusion: 03/30/24 06:58 Dose: Infused Lactated Ringer's (Lr) 1,000 mls @ 60 mls/hr IV .[id number] [facility] Stop: 03/30/24 22:39 Last Admin: 03/30/24 06:00 Dose: Not Given Cefazolin Sodium (Ancef 2000mg) 2,000 mg in 15 mls @ 3.75 mls/min IV PREOP [facility]; Protocol Stop: 03/30/24 18:00 Last Admin: 03/30/24 07:00 Dose: 3.75 mls/min Ropivacaine 246 mg/ Ketorolac Tromethamine 30 mg/Epinephrine HCl 0.5 mg/ Sodium Chloride 100.7 mls @ 0 mls/hr INFIL TODAY@0600 [facility]; Protocol Stop: 03/30/24 16:00 Last Admin: 03/30/24 07:36 Dose: 100.7 mls/hr Tranexamic Acid (Tranexamic Acid / 0.7% Nacl) 1,000 mg in 100 mls @ 600 mls/hr IV TODAY@0600 [facility] Stop: 03/30/24 18:00 Last Infusion: 03/30/24 08:12 Dose: Infused Promethazine HCl 6.25 mg/ (Sodium Chloride) 50.25 mls @ 204 mls/hr IV ONCE PRN PRN Reason: PACU Use Only-Nausea/Vomiting Stop: 03/30/24 15:11 Metoclopramide HCl (Metoclopramide Hcl 10 Mg Tablet) 10 mg PO PREOP [facility] Stop: 03/30/24 18:00 Last Admin: 03/30/24 05:59 Dose: 10 mg ECG Additional Comments: I have independently reviewed and interpreted patient's admitting EKG which revealed: atrial flutter 115bom, qtc 628ms
[2024-03-30 12:57] LABS: Basophils # (auto) 0.01 K/uL (0.00-0.20); Basophils % (auto) 0.1 %; Immature Granulocytes # (auto) 0.03 K/uL (0.01-0.20); Immature Granulocytes % (auto) 0.4 %; Lymphocytes # (auto) 0.32 K/uL (1.20-3.40); Lymphocytes % (auto) 4.7 %; Monocytes # (auto) 0.04 K/uL (0.11-0.59); Monocytes % (auto) 0.6 %; Neutrophils # (auto) 6.48 K/uL (1.40-6.50); Neutrophils % (auto) 94.2 %
[2024-03-30 13:04] LABS: Thyroid Stimulating Hormone 0.614 uIu/ml (0.300-4.500)
[2024-03-30] MEDS ORDERED: PROMETHAZINE 6.25 MG/50.25 ML BAG IV PRN (13:58)
[2024-03-30] MEDS ORDERED: MAGNESIUM HYDROXIDE SUSP 30 ML UDC PO PRN (13:58)
[2024-03-30] MEDS ORDERED: ACETAMINOPHEN 500 MG TAB PO SCH (13:58)
[2024-03-30] MEDS ORDERED: NO NSAIDS SCH (13:58)
[2024-03-30] MEDS ORDERED: NALOXONE HCL 0.4 MG/1 ML VIAL/CARP IV PRN (13:58)
[2024-03-30] MEDS ORDERED: NON-FORMULARY MEDICATION (Mv-Mn-Lutein-Zeax-Bilber-Hb277 [Macular Health Formula] 5-1-7.5 PO SCH (13:58)
[2024-03-30] MEDS ORDERED: SENNA 8.6 MG TAB PO SCH (13:58)
[2024-03-30] MEDS ORDERED: ALUMINUM/MAGNESIUM SUSP 30 ML UDC PO PRN (13:58)
[2024-03-30] MEDS ORDERED: NON-FORMULARY MEDICATION (Tramadol 25 mg tablet) PO PRN (13:58)
[2024-03-30] MEDS ORDERED: bisacodyL 10 MG SUPP PR PRN (13:58)
--- NOTE | 2024-03-30 14:45 | Anesthesiology Progress Note ---
Date of Service March 30, 2024 Anesthesia Post Procedure Vital Signs Vital Signs: Temp Pulse Pulse Resp BP BP Pulse Ox 03/30/24 14:00 99 H 14 122/82 96 03/30/24 13:30 95 H 18 135/71 95 03/30/24 12:30 97 H 20 139/84 95 03/30/24 12:08 119 H 120/76 03/30/24 12:00 122 H 16 120/76 94 03/30/24 11:44 123 H 14 123/82 94 03/30/24 11:30 122 H 18 131/86 93 03/30/24 11:15 121 H 14 142/93 H 95 03/30/24 11:00 120 H 14 135/86 93 03/30/24 10:50 116 H 12 136/85 93 03/30/24 10:40 112 H 14 134/83 92 03/30/24 10:30 118 H 14 134/89 92 03/30/24 10:20 120 H 16 140/88 94 03/30/24 10:10 121 H 12 139/88 93 03/30/24 10:00 117 H 14 137/90 93 03/30/24 09:50 116 H 15 137/90 92 03/30/24 09:40 117 H 15 151/92 H 94 03/30/24 09:30 36.6 C 110 H 18 143/89 H 96 03/30/24 09:22 121 H 147/91 H 03/30/24 09:20 116 H 13 147/91 H 93 03/30/24 09:10 113 H 13 142/88 H 94 03/30/24 09:00 110 H 13 156/96 H 100 03/30/24 08:50 112 H 22 170/100 H 100 03/30/24 08:40 36.3 C L 113 H 22 175/106 H 96 03/30/24 05:47 36.8 C 122 H 20 173/106 H 96 O2 Del Method O2 Flow Rate 03/30/24 14:00 Room Air 03/30/24 13:30 Room Air 03/30/24 12:30 Room Air 03/30/24 12:08 03/30/24 12:00 Room Air 03/30/24 11:44 Room Air 03/30/24 11:30 Room Air 03/30/24 11:15 Room Air 03/30/24 11:00 Room Air 03/30/24 10:50 Room Air 03/30/24 10:40 Room Air 03/30/24 10:30 Room Air 03/30/24 10:20 Room Air 03/30/24 10:10 Room Air 03/30/24 10:00 Room Air 03/30/24 09:50 Room Air 03/30/24 09:40 Room Air 03/30/24 09:30 Room Air 03/30/24 09:22 03/30/24 09:20 Room Air 03/30/24 09:10 Room Air 03/30/24 09:00 Oxymask 4 03/30/24 08:50 Oxymask 8 03/30/24 08:40 Oxymask 8 03/30/24 05:47 Room Air Transfer of Care Handoff Completed per policy Notes Mental Status: alert / awake / arousable and participated in evaluation Nausea / Vomiting: adequately controlled Pain: adequately controlled Airway Patency, RR, SpO2: stable & adequate BP & HR: stable & adequate and see Notes below Hydration State: stable & adequate Anesthetic Complications: no major complications apparent and Pt Satisfied with anesthetic care Notes: Pt found in a-fluter with HR ~110. Treated with metoprolol and cardiology consulted. Pt transferred otherwise stable to monitored floor.
[2024-03-30] MEDS: TRANEXAMIC ACID / 0.7% NACL 1,000 MG/100 ML BAG IV ONE (14:58)
[2024-03-30] MEDS: MAGNESIUM SULFATE / D5W 1 GM/100 ML BAG IV SCH (14:58)
[2024-03-30] MEDS: ceFAZolin 1000MG 1,000 MG/7.5 ML SYR IV SCH (15:09)
[2024-03-30] MEDS: SODIUM CHLORIDE 0.9% 500 ML IV ONE (16:37)
--- NOTE | 2024-03-30 16:57 | Electrocardiogram Report ---
Test Reason : Blood Pressure : */* mmHG Vent. Rate : 95 BPM Atrial Rate : 95 BPM P-R Int : 192 ms QRS Dur : 72 ms QT Int : 358 ms P-R-T Axes : 62 56 67 degrees QTcB Int : 449 ms Normal sinus rhythm Possible Left atrial enlargement Nonspecific ST abnormality Abnormal ECG When compared with ECG of 30-Mar-2024 09:48, No significant change was found Confirmed by nOi Bonds ([id number]) on 03/30/2024 4:57:05 PM Referred By: Renny Briggs Confirmed By: Oni Bonds
[2024-03-30] MEDS: POTASSIUM CHLORIDE 10 MEQ TABCR PO STA (17:03)
[2024-03-30] MEDS: ASCORBIC ACID 500 MG TAB PO SCH (17:03)
[2024-03-30] MEDS: MULTIVITAMIN TAB PO SCH (17:04)
[2024-03-30] MEDS: DOCUSATE SODIUM 100 MG CAP PO SCH (17:04)
[2024-03-30] MEDS: PANTOprazole 40 MG TAB PO SCH (17:04)
[2024-03-30] MEDS ORDERED: POTASSIUM CHLORIDE CRTAB 20 MEQ TABCR PO ONE (20:00)
[2024-03-30] MEDS: SENNA 8.6 MG TAB PO SCH (20:48)
[2024-03-31 06:51] LABS: Hematocrit (blood only) 31.9 % (37.0-47.0); Hemoglobin 10.6 g/dl (12.0-16.0); Mean Corpuscular Hemoglobin 28.6 pg (25.0-34.0); Mean Corpuscular Hgb Conc 33.2 g/dL (32.0-36.0); Mean Platelet Volume 8.8 fL (9.4-12.4); Platelet Count 241 K/uL (130-400); RDW Coefficient of Variation 12.3 % (11.5-14.5); Red Blood Count 3.71 M/uL (4.20-5.40)
[2024-03-31 06:56] LABS: BUN Creatinine Ratio 38.3 (10-20); Calcium 8.7 mg/dl (8.6-10.3); Creatinine Clr Calc Pharmacy 64.6 ml/min; Magnesium 1.7 mg/dl (1.7-2.4); Potassium 3.9 mmol/L (3.5-5.1)
--- NOTE | 2024-03-31 07:06 | Orthopedic Progress Note ---
Date of Service March 31, 2024 Assessment & Plan (1) Status post left knee replacement: Plan: 78-year-old female postop day 1 from a left total knee replacement. That she is doing pretty well this morning. That she had some atrial fibrillation/tachycardia in the recovery room but heart rate is now down. She was completely asymptomatic. Pains controlled but she started to have some pain. She is neurologically intact. Plan: 1. DVT prophylaxis including Thiede teds, SCDs, and she is going to be on Xarelto for 1 month. She has a history of GI bleed with the last that knee replacement surgery in will continue on Protonix prophylaxis. 2. PT/OT. Weight-bear as tolerated left total knee protocol. 3. Pain control. Doing okay with current pain regimen. Will likely have to taper meds to a manage her pain. 4. History of a GI bleed. She is on Protonix. Working avoid aspirin and use Lovenox. 5. Cardiac management. As per the medicine service. Cardiac carranza she seems stable currently. 6. Disposition. She is hoping to be discharged home with some home health. Will see how therapy goes today. (2) Sinus tachycardia: Admission and Anticipated Discharge Date Admission Date: March 30, 2024 Subjective 78-year-old female postop day 1 from a left knee replacement. She is doing pretty well this morning. Does start to have a little bit more pain. No chest pain or shortness of breath. Not feeling dizzy or lightheaded. She is hoping to go home today. Physical Exam Physical Exam: Physical nation was a pleasant elderly female. That she is lying in bed looks pretty comfortable this morning. She is awake alert and oriented. Examination of the left leg reveals leg to be well aligned. She can dorsiflex and plantarflex her foot appropriately. Dressings clean dry and intact. She is neurologically intact. Respiratory: normal respiratory effort, lungs clear to auscultation Cardiovascular: RRR, no murmur, no edema Gastrointestinal (Abdomen): normal bowel sounds, soft, nontender, no hepatosplenomegaly Results & Data Vital Signs (Past 12 Hours) Vital Signs Temp Pulse Pulse Resp BP Pulse Ox O2 Del Method 03/31/24 03:00 36.5 C 81 18 121/68 93 Room Air 03/31/24 00:52 93 H 03/30/24 23:49 36.6 C 90 18 112/67 94 Room Air 03/30/24 20:51 36.6 C 88 18 124/70 95 Room Air Laboratory Results Hemoglobin is 10.6. Hematocrit is 31.9. Electrolytes are stable.
[2024-03-31] MEDS: dexAMETHasone 10 MG in SYRINGE 0 ML IV SCH (08:31)
[2024-03-31] MEDS: ERGOCALCIFEROL 1250 MCG (50,000 UNITS) CAP PO SCH (08:31)
[2024-03-31] MEDS: RIVAROXABAN 10 MG TABLET PO SCH (08:31)
[2024-03-31] MEDS: traMADol HCL 50 MG TABLET PO PRN (08:31)
[2024-03-31] MEDS: METOCLOPRAMIDE HCL INJ 5 MG/ML 2 ML VIAL IV PRN (08:31)
--- NOTE | 2024-03-31 12:33 | Hospitalist Progress Note ---
Date of Service March 31, 2024 Assessment & Plan (1) Sinus tachycardia: (2) Degenerative arthritis of knee, bilateral: Plan This is an 78-year-old female with significant past medical history of prediabetes, recurrent UTI, history of colon cancer status post partial colectom y, osteoporosis and depression who presents for elective L TKA by Dr. Briggs. The hospitalist team was consulted as she had an episode of atrial flutter post- op. Osteoarthritis of L Knee S/P L TKA by Dr. Briggs, POD Day 1 EBL 50ml pain/wound management per ortho activity and therapy as per ortho Xarelto for DVT ppx per ortho, cardiology recommending increasing dose to 20mg if ortho agreeable (see below) Paroxysmal atrial flutter Sinus Tachycardia Post op EKG noting atrial flutter, HR 115 Received a dose of Lopressor 2.5mg Converted to sinus rhythm with noted sinus tachycardia Keep K and Mag > 4.0 and 2.0 respectively Echo with EF 60-65%, moderate LVH, normal wall motion, no significant wall disease Pt w/o prior hx Cardiology consulted, recommended/stated the following: -metoprolol succinate 12.5mg daily -Per Dr Artie Zavala: "...Would recommend full anticoagulation. Okay to increase rivaroxaban to 20 mg/day if not surgically contraindicated. Recommend follow-up with cardiology as outpatient 1 months time. Reassess need for ongoing anticoagulation at that time..." Continue to monitor on telemetry Orthostatic Hypotension Pt with noted episodes of low BP after working with PT on 03/31 Was also started on Toprol XL per cardiology as noted above BP otherwise on higher side Very gentle fluid hydration with 1bag NSS Repeat orthostat vitals in AM Continue to monitor Anemia Hgb currently 10.6 Continue to monitor Prolonged QTC- resolved monitor on ecg avoid qtc prolonging meds repeat ecg QTC has normalized Pre DM a1c 5.9 in november currently not on meds Hx of colon ca s/p colectomy Hx of GIB per pt 2/2 ulcer - on PPI IPMN: follows with GI for routine surveillance Diet: HH DVT ppx: Xarelto per ortho FULL CODE PCP: Dr. Solo Dispo: home once medically stable Thank you for this consultation. We will follow the patient with you during their hospital stay. You can reach a member of the [facility] Hospitalist Team 29/09 via hospitalist role on tiger text. Admission and Anticipated Discharge Date Admission Date: March 30, 2024 Subjective Pt was seen with daughter at bedside. Per nursing, she had episodes of hypotension while up and working with PT, reportedly pt looked pale at the time However denies SOB, chest pain or palps while at rest States that her pain is controlled Review of Systems Review of Systems: All systems reviewed & are unremarkable except as noted in Subjective Physical Exam Physical Exam: General: Alert, oriented. No acute distress Psych: Appropriate mood and affect Neuro: No gross deficits HEENT: NC/AT CV: RRR Resp: Breath sounds clear bilaterally, no increased effort of breathing Abdomen: Soft, nontender Extremities: Left leg in post op PATRICE and bandaged Results & Data Results & Data Vital Signs (Past 12 Hours) Vital Signs Temp Pulse Pulse Resp BP BP Pulse Ox 03/31/24 11:14 36.6 C 84 16 149/78 H 96 03/31/24 08:00 93 H 03/31/24 07:55 36.8 C 80 18 152/71 H 92 03/31/24 03:00 36.5 C 81 18 121/68 93 03/31/24 00:52 93 H O2 Del Method 03/31/24 11:14 Room Air 03/31/24 08:00 03/31/24 07:55 Room Air 03/31/24 03:00 Room Air 03/31/24 00:52
[2024-03-31] MEDS: METOPROLOL SUCC 25MG EXT REL TAB PO SCH (13:49)
--- NOTE | 2024-03-31 13:53 | Electrocardiogram Report ---
Test Reason : Blood Pressure : */* mmHG Vent. Rate : 90 BPM Atrial Rate : 90 BPM P-R Int : 162 ms QRS Dur : 84 ms QT Int : 352 ms P-R-T Axes : 52 60 46 degrees QTcB Int : 430 ms Normal sinus rhythm Normal ECG When compared with ECG of 30-Mar-2024 14:05, No significant change was found Confirmed by Oni Bonds ([id number]) on 03/31/2024 1:52:58 PM Referred By: Renny Briggs Confirmed By: Oni Bonds
--- NOTE | 2024-03-31 15:17 | Cardiology Consultation ---
Date of Consultation March 31, 2024 Assessment & Plan (1) Paroxysmal atrial flutter: (2) Sinus tachycardia: (3) Status post left knee replacement: Plan 78-year-old female without prior cardiac disease who had transient atrial flutter in the postoperative setting status post left total knee replacement. No prior history of arrhythmias. [id number] 2 score of 34 No complaints today though mildly orthostatic with elevated heart rate. Impression, plan 1. Paroxysmal atrial flutter.: Discussed in detail with patient and daughter. Still with mild sinus tachycardia. Blood pressures appear normal to elevated. Will add metoprolol succinate 12.5 mg/day. Would repeat orthostatic examinations prior to discharge. Patient with [id number] score as noted. Would recommend full anticoagulation. Okay to increase rivaroxaban to 20 mg/day if not surgically contraindicated. Recommend follow-up with cardiology as outpatient 1 months time. Reassess need for ongoing anticoagulation at that time History of Present Illness Reason for Consultation: Paroxysmal atrial flutter Requesting Physician: Daljit Landaverde Attending Physician: Renny Briggs MD History of Present Illness Patient is an 78-year-old female without prior defined cardiac disease who underwent routine left total knee replacement on 03/30/2024. In the postoperative period patient noted to have transient atrial flutter with spontaneous return to sinus and sinus tachycardia. Patient without prior history of arrhythmias per her description. No history of TIA or stroke. No history of syncope or near syncope. No defined cardiac disease rheumatic fever scarlet fever or heart murmur. Currently recovering from operative procedure. Notable mild orthostasis on attempting to ambulate earlier today. Telemetry with sinus and sinus tachycardia No bleeding difficulties currently on rivaroxaban DVT prophylaxis Allergies Allergy/AdvReac Type Severity Reaction Status Date / Time Sulfa (Sulfonamide Allergy Intermediate HIVES Verified 03/30/24 05:43 Antibiotics) Home Medications Medication Instructions Recorded Confirmed Type alendronate 70 mg tablet (Fosamax) 70 mg PO ESPINAL 07/10/23 03/30/24 History ergocalciferol (vitamin D2) 50,000 50,000 unit PO WK 07/10/23 03/30/24 History unit tablet [id number] 5 mg-zeaxanth 4 cap PO QAM 07/10/23 03/30/24 History 1 mg-bilberry 7.5 mg-herbal capsule (Macular Health Formula) Wheeled Walker #1 ea 08/11/23 01/06/24 Rx pantoprazole 20 mg tablet,delayed 20 mg PO DAILY 01/06/24 03/30/24 History release (Protonix) tramadol 25 mg tablet 25 mg PO Q6H PRN prn 01/06/24 03/30/24 History cefadroxil 500 mg capsule 500 mg PO BID 7 days #14 caps 03/28/24 03/30/24 Rx ondansetron 4 mg disintegrating 4 mg PO Q8 PRN nausea #20 tabs 03/28/24 03/30/24 Rx tablet rivaroxaban 10 mg tablet (Xarelto) 10 mg PO DAILY prevent blood clots 03/28/24 03/30/24 Rx 30 days #30 tabs sennosides 8.6 mg tablet (Senokot) 8.6 mg PO BID prevent constipation 03/28/24 03/30/24 Rx 14 days #28 tabs tramadol 50 mg tablet 50 - 100 mg (1 - 2 x 50 mg) PO Q8H 03/28/24 03/30/24 Rx PRN pain #40 tabs acetaminophen 500 mg tablet 1,000 mg PO [facility] pain 03/30/24 03/30/24 History (Tylenol Extra Strength) duloxetine 30 mg capsule,delayed 30 mg PO HS 03/30/24 03/30/24 History release Patient History Medical History History of GI bleed (~08/2023) 08/2023 due to gastric ulcers, occurred one week after hip replacement, no issues currently, not following with gastro currently Osteoarthritis Bilateral knees, left hip History of colorectal cancer (~1997) diagnosed 1997--s/p partial colon resection, chemo/radiation History of COVID- (~2020) 2020--mild symptoms, no symptoms now History of postoperative nausea and vomiting Surgical History History of total left hip replacement History of benign breast biopsy History of total hysterectomy with bilateral salpingo-oophorectomy (BSO) History of total right hip replacement History of colonoscopy History of cholecystectomy History of colon resection 1997 History of tooth extraction all teeth removed History of bilateral cataract extraction Family History Other No family history of adverse response to anesthesia Social History Smoking Status: Never smoker Second Hand Exposure: No; Do You Dip or Chew Tobacco: No; Tobacco Cessation Education Requested by Patient: No Hx Alcohol Use: No Hx Substance Use: No Preferred Language: [place]alander Communication Ability: Effective Wind Energy Engineer Required: No Beliefs That Will Affect Care: None Current Living Situation: Alone Other Information That Helps Us Care for You: No Feels Safe at Home: Yes Safety Concerns: Feels Safe At This Time Assistive Devices: None Review of Systems Review of Systems: All systems reviewed & are unremarkable except as noted in HPI & below Physical Exam Constitutional: well developed; no acute distress Eyes: PERRL, conjunctivae normal, anicteric sclerae ENMT: external ear and nose normal, oropharynx normal Neck: trachea midline, no thyromegaly Cardiovascular: Rate/Rhythm: regular rate and regular rhythm Heart Sounds: normal S1 and normal S2 Gastrointestinal (Abdomen): normal bowel sounds, soft, nontender, no hepatosplenomegaly Musculoskeletal: Left knee bandaged without hematoma intact distal pulse Results & Data Vital Signs (Past 12 Hours) Vital Signs Temp Pulse Pulse Resp BP BP Pulse Ox 03/31/24 13:33 03/31/24 11:14 36.6 C 84 16 149/78 H 96 03/31/24 08:00 93 H 03/31/24 07:55 36.8 C 80 18 152/71 H 92 O2 Del Method 03/31/24 13:33 Room Air 03/31/24 11:14 Room Air 03/31/24 08:00 03/31/24 07:55 Room Air Laboratory Results Laboratory Results - last 24 hr 03/31/24 05:35 WBC 10.10 RBC 3.71 L Hgb 10.6 L Hct 31.9 L MCV 86.0 MCH 28.6 MCHC 33.2 RDW Std Deviation 39.0 RDW Coeff of Velasquez 12.3 Plt Count 241 MPV 8.8 L Sodium 139 Potassium 3.9 Chloride 104 Carbon Dioxide 30 Anion Gap 5 BUN 23 Creatinine 0.60 Est Cr Clr Drug Dosing 64.6 eGFR 90.68 BUN/Creatinine Ratio 38.3 H Glucose 102 H Calcium 8.7 Magnesium 1.7 Diagnostic Findings Echocardiogram 03/30/2024 Normal systolic function EF 60-65% with mild to moderate left hypertrophy and no significant valvular disease
[2024-03-31] MEDS: SODIUM CHLORIDE 0.9% 1,000 ML IV SCH (18:00)
[2024-03-31] MEDS: DULoxetine HCL 30 MG CAP PO SCH (21:31)
[2024-04-01] MEDS: MAGNESIUM SULFATE / D5W 1 GM/100 ML BAG IV ONE (03:37)
[2024-04-01] MEDS: METOPROLOL SUCC 25MG EXT REL TAB PO STA (03:38)
--- NOTE | 2024-04-01 07:24 | Orthopedic Progress Note ---
Date of Service April 01, 2024 Assessment & Plan (1) Status post left knee replacement: Plan: 78-year-old female postop day 2 from a left knee replacement complicated by a new onset atrial flutter. Rate seems to be pretty well-controlled currently. She is got no symptoms. Moderate amount of knee pain but nothing out of the ordinary. She has been given a low-dose beta-puja. Also on anticoagulation now. Plan: 1. DVT prophylaxis including thigh-high teds, SCDs, and Xarelto. Will increase her dose to 20 mg today. We do have to be careful with anticoagulation as she has a history of a GI bleed in the past. 2. PT/OT. Left total knee protocol. 3. Pain control. Doing okay with current pain regimen. 4. Disposition. Plan is discharge to home with some home health if okay with medicine and does okay in therapy. (2) Paroxysmal atrial flutter: (3) Sinus tachycardia: Admission and Anticipated Discharge Date Admission Date: March 30, 2024 Subjective 78-year-old female postop day 2 from left knee replacement. She is having a moderate amount of pain. No chest pain or shortness of breath. She is hoping to go home today. Physical Exam Physical Exam: Physical nation was a pleasant elderly female. She is lying in bed looks pretty comfortable. Examination left leg reveals the dressing be clean dry and intact. She can dorsiflex and plantarflex her foot appropriately. She is neurologically intact. Results & Data Vital Signs (Past 12 Hours) Vital Signs Temp Pulse Pulse Resp BP Pulse Ox O2 Del Method 04/01/24 05:16 133/77 94 Room Air 04/01/24 03:55 36.7 C 93 H 16 160/85 H 93 Room Air 04/01/24 00:00 97 H 03/31/24 23:00 36.8 C 92 H 18 151/88 H 95 Room Air 03/31/24 20:11 36.7 C 90 16 155/91 H 97 Room Air
[2024-04-01] MEDS: HYDROmorphone INJ 0.5 MG/0.5 ML SYR IV PRN (08:01)
--- NOTE | 2024-04-01 10:19 | Cardiology Progress Note ---
Date of Service April 01, 2024 Assessment & Plan (1) Paroxysmal atrial flutter: (2) Sinus tachycardia: (3) Status post left knee replacement: Plan 78-year-old female without prior cardiac disease who had transient atrial flutter in the postoperative setting status post left total knee replacement. No prior history of arrhythmias. [id number] 2 score of 34 No complaints today though mildly orthostatic with elevated heart rate. Impression, plan 1. Paroxysmal atrial flutter.: Discussed in detail with patient and daughter. Still with mild sinus tachycardia. Blood pressures appear normal to elevated. Will add metoprolol succinate 12.5 mg/day. Would repeat orthostatic examinations prior to discharge. Patient with [id number] score as noted. Would recommend full anticoagulation. Okay to increase rivaroxaban to 20 mg/day if not surgically contraindicated. Recommend follow-up with cardiology as outpatient 1 months time. Reassess need for ongoing anticoagulation at that time 04/01/2024 Patient with transient hypotension this morning after Dilaudid administration. Mild confusion now improving. Heart rate and blood pressure elevated overnight. No arrhythmias or recurrent atrial flutter 1. Paroxysmal atrial flutter: Metoprolol succinate increased to 25 mg/day. Anticoagulation recommendations as prior 2. Sinus tachycardia with variable blood pressure. Lab work and x-ray ordered today. Follow via primary service Admission and Anticipated Discharge Date Admission Date: March 30, 2024 Subjective Patient seen and examined personally. Chart medications telemetry reviewed. Daughter aids in history. Patient overnight with elevated blood pressures. Metoprolol succinate given early this morning. Heart rates elevated but in sinus tachycardia. Patient received Dilaudid for pain this morning but "not herself afterwards" Denies any chest pain shortness of breath. Left knee pain and discomfort only. No hypoxia. Oxygenating on room air. Review of Systems Review of Systems: All systems reviewed & are unremarkable except as noted in Subjective Physical Exam Constitutional: well developed; no acute distress Eyes: PERRL, conjunctivae normal, anicteric sclerae ENMT: external ear and nose normal, oropharynx normal Neck: trachea midline, no thyromegaly Cardiovascular: Rate/Rhythm: regular rate and regular rhythm Heart Sounds: normal S1 and normal S2 Gastrointestinal (Abdomen): normal bowel sounds, soft, nontender, no hepatosplenomegaly Results & Data Vital Signs (Past 12 Hours) Vital Signs Temp Pulse Pulse Resp BP Pulse Ox O2 Del Method 04/01/24 09:33 115 H 155/83 H 04/01/24 08:32 36.9 C 100 H 22 86/54 L 93 Room Air 04/01/24 07:57 36.7 C 110 H 18 166/98 H 95 Room Air 04/01/24 05:16 133/77 94 Room Air 04/01/24 03:55 36.7 C 93 H 16 160/85 H 93 Room Air 04/01/24 00:00 97 H 03/31/24 23:00 36.8 C 92 H 18 151/88 H 95 Room Air
[2024-04-01 10:38] LABS: Hematocrit (blood only) 30.1 % (37.0-47.0); Hemoglobin 10.5 g/dl (12.0-16.0); Mean Corpuscular Hemoglobin 29.2 pg (25.0-34.0); Mean Corpuscular Hgb Conc 34.9 g/dL (32.0-36.0); Mean Corpuscular Volume 83.6 fL (80.0-100.0); Mean Platelet Volume 8.5 fL (9.4-12.4); Platelet Count 210 K/uL (130-400); RDW Coefficient of Variation 12.3 % (11.5-14.5); RDW Standard Deviation 37.2 fL (36.4-46.3); White Blood Count 11.82 K/ul (4.8-10.8)
[2024-04-01 10:40] LABS: Basophils # (auto) 0.01 K/uL (0.00-0.20); Basophils % (auto) 0.1 %; Eosinophils # (auto) 0.01 K/uL (0.00-0.50); Eosinophils % (auto) 0.1 %; Immature Granulocytes # (auto) 0.07 K/uL (0.01-0.20); Immature Granulocytes % (auto) 0.6 %; Lymphocytes # (auto) 0.83 K/uL (1.20-3.40); Monocytes # (auto) 1.12 K/uL (0.11-0.59); Monocytes % (auto) 9.5 %; Neutrophils % (auto) 82.7 %
--- NOTE | 2024-04-01 10:53 | XRay Report ---
XR chest 1V portable HISTORY: 78 years-old Female Tachycardia postop acute tachycardia COMPARISON: Chest 07/27/2023 TECHNIQUE: AP view of the chest FINDINGS: Cardiac silhouette is upper limits of normal in size. No pneumothorax, pleural effusion, airspace con solidation or pulmonary edema. Mild right hemidiaphragmatic elevation. The bones of the chest appear grossly intact. IMPRESSION: No acute process. ACT 112: Negative or not required by law. The above report was generated using voice recognition software. It may contain grammatical, syntax o r spelling errors. Electronically signed by: Maverick Walsh M.D. 04/01/2024 10:51 AM
[2024-04-01 10:56] LABS: BUN Creatinine Ratio 28.6 (10-20); Calcium 8.2 mg/dl (8.6-10.3); Creatinine Clr Calc Pharmacy 92.3 ml/min; Magnesium 1.9 mg/dl (1.7-2.4); Phosphorus 2.2 mg/dl (2.5-4.9); Potassium 3.7 mmol/L (3.5-5.1)
[2024-04-01] MEDS ORDERED: POTASSIUM PHOS 3 MMOL/1 ML INFUSION IV STA (11:52)
[2024-04-01] MEDS: POT PHOSPHATE MONOBASIC W/ SOD TAB PO SCH (12:38)
[2024-04-01 13:48] LABS: Adenovirus F 40/41 PCR Not Detected (NotDetected); Astrovirus PCR Not Detected (NotDetected); Campylobacter PCR Not Detected (NotDetected); Cryptosporidium PCR Not Detected (NotDetected); Cyclospora cayetanensis PCR Not Detected (NotDetected); Entamoeba histolytica PCR Not Detected (NotDetected); Enteroaggregative E.coli(EAEC) Not Detected (NotDetected); Enteropathogenic E.coli (EPEC) Not Detected (NotDetected); Enterotoxigenic E.coli (ETEC) Not Detected (NotDetected); Giardia lamblia PCR Not Detected (NotDetected); Norovirus GI/GII PCR Not Detected (NotDetected); Plesiomonas shigelloides PCR Not Detected (NotDetected); Rotavirus A PCR Not Detected (NotDetected); Salmonella PCR Not Detected (NotDetected); Sapovirus PCR Not Detected (NotDetected); Shiga-like Toxin E.coli (STEC) Not Detected (NotDetected); Shigella/Enteroinvasive E.coli Not Detected (NotDetected); Vibrio cholerae PCR Not Detected (NotDetected); Vibrio species PCR Not Detected (NotDetected); Yersinia enterocolitica PCR Not Detected (NotDetected)
--- NOTE | 2024-04-01 13:58 | Hospitalist Progress Note ---
Date of Service April 01, 2024 Assessment & Plan (1) Sinus tachycardia: (2) Degenerative arthritis of knee, bilateral: Plan This is an 78-year-old female with significant past medical history of prediabetes, recurrent UTI, history of colon cancer status post partial colectom y, osteoporosis and depression who presents for elective L TKA by Dr. Briggs. The hospitalist team was consulted as she had an episode of atrial flutter post- op. Osteoarthritis of L Knee S/P L TKA by Dr. Briggs, POD Day 1 EBL 50ml pain/wound management per ortho activity and therapy as per ortho Xarelto for DVT ppx per ortho, cardiology recommending increasing dose to 20mg if ortho agreeable (see below) Paroxysmal atrial flutter Sinus Tachycardia Post op EKG noting atrial flutter, HR 115 Received a dose of Lopressor 2.5mg Converted to sinus rhythm with noted sinus tachycardia Keep K and Mag > 4.0 and 2.0 respectively Echo with EF 60-65%, moderate LVH, normal wall motion, no significant wall disease Pt w/o prior hx Cardiology consulted, recommended/stated the following: -metoprolol succinate (currently on 25mg daily) -Per Dr Artie Zavala: "...Would recommend full anticoagulation. Okay to increase rivaroxaban to 20 mg/day if not surgically contraindicated. Recommend follow-up with cardiology as outpatient 1 months time. Reassess need for ongoing anticoagulation at that time..." Continue to monitor on telemetry Orthostatic Hypotension Pt with noted episodes of low BP after working with PT on 03/31, 04/01 Was also started on Toprol XL per cardiology as noted above BP otherwise on higher side Very gentle fluid hydration with 1bag NSS Repeat orthostat vitals in AM Continue to monitor GI Bleed FOBT positive Hx of GI bleed Was recently started on anticoagulation as noted above H/H stable postop PPI drip, hold home po ppi GI consulted, appreciate further recs Anemia Hgb currently 10.5, stable Continue to monitor Diarrhea started on 04/01 c diff testing negative stool cx negative Hypophosphatemia replete as needed Prolonged QTC- resolved monitor on ecg avoid qtc prolonging meds repeat ecg QTC has normalized Pre DM a1c 5.9 in november currently not on meds Hx of colon ca s/p colectomy Hx of GIB per pt 2/2 ulcer - on PPI IPMN: follows with GI for routine surveillance Diet: HH DVT ppx: Xarelto per ortho FULL CODE PCP: Dr. Solo Dispo: home once medically stable Thank you for this consultation. We will follow the patient with you during their hospital stay. You can reach a member of the [facility] Hospitalist Team 29/09 via hospitalist role on tiger text. Admission and Anticipated Discharge Date Admission Date: March 30, 2024 Subjective Pt was seen multiple times New episodes of diarrhea very hypotensive when ambulating. daughter Liat called and updated Review of Systems Review of Systems: All systems reviewed & are unremarkable except as noted in Subjective Physical Exam Physical Exam: General: Alert, oriented. No acute distress Psych: Appropriate mood and affect Neuro: No gross deficits HEENT: NC/AT CV: RRR Resp: Breath sounds clear bilaterally, no increased effort of breathing Abdomen: Soft, nontender Extremities: Left leg in post op PATRICE and bandaged Results & Data Results & Data Vital Signs (Past 12 Hours) Vital Signs Temp Pulse Pulse Resp BP Pulse Ox O2 Del Method 04/01/24 12:07 36.6 C 88 20 138/79 96 Room Air 04/01/24 09:33 115 H 155/83 H 04/01/24 08:32 36.9 C 100 H 22 86/54 L 93 Room Air 04/01/24 08:00 103 H 04/01/24 07:57 36.7 C 110 H 18 166/98 H 95 Room Air 04/01/24 05:16 133/77 94 Room Air 04/01/24 03:55 36.7 C 93 H 16 160/85 H 93 Room Air
[2024-04-01] MEDS ORDERED: PANTOPRAZOLE BOLUS/DRIP IV STA (17:30)
[2024-04-01] MEDS: PANTOprazole 80 MG in DEXTROSE 5% 100 ML IV ONE (20:12)
[2024-04-01] MEDS: PANTOprazole 40 MG in DEXTROSE 5% MINI-B 100 ML IV SCH (20:27)
[2024-04-01 23:35] LABS: Appearance Urine Clear (Clear); Bilirubin Urine Negative (Negative); Blood Urine Negative (Negative); Color Urine Yellow; Glucose Urine UA Negative (Negative); Ketones Urine Negative (Negative); Leukocyte Esterase Urine Negative (Negative); Nitrite Urine Negative (Negative); Protein Urine Negative (Negative); Urobilinogen Urine Negative (Negative); pH Urine 6.5 (4.5-7.5)
[2024-04-02 06:33] LABS: Hematocrit (blood only) 30.2 % (37.0-47.0); Hemoglobin 10.4 g/dl (12.0-16.0); Mean Corpuscular Hemoglobin 29.1 pg (25.0-34.0); Mean Corpuscular Hgb Conc 34.4 g/dL (32.0-36.0); Mean Corpuscular Volume 84.4 fL (80.0-100.0); Mean Platelet Volume 8.7 fL (9.4-12.4); Platelet Count 234 K/uL (130-400); RDW Coefficient of Variation 12.3 % (11.5-14.5); RDW Standard Deviation 37.2 fL (36.4-46.3); Red Blood Count 3.58 M/uL (4.20-5.40); White Blood Count 8.56 K/ul (4.8-10.8)
[2024-04-02 06:52] LABS: BUN Creatinine Ratio 34.1 (10-20); Calcium 8.7 mg/dl (8.6-10.3); Creatinine Clr Calc Pharmacy 94.5 ml/min; Magnesium 1.8 mg/dl (1.7-2.4); Phosphorus 2.8 mg/dl (2.5-4.9); Potassium 3.4 mmol/L (3.5-5.1)
--- NOTE | 2024-04-02 07:39 | Orthopedic Progress Note ---
Date of Service April 02, 2024 Assessment & Plan (1) Status post left knee replacement: Plan: 78-year-old female postop day 3 from left knee replacement to the complicated by some paroxysmal atrial fibrillation. Her rate seems to be controlled. She is asymptomatic. Mild amount of pain but nothing out of the ordinary. As she is neurologically intact. Plan: 1. DVT prophylaxis including thigh-high teds, SCDs, and she is now on Xarelto. 2. PT/OT. Weight-bear as top. Left total knee protocol. 3 pain control doing okay with current pain regimen. 4. Disposition. Plan to discharge to home with some home health and family assistance if she does okay in therapy today and her blood pressure stable. (2) Paroxysmal atrial flutter: (3) Sinus tachycardia: Admission and Anticipated Discharge Date Admission Date: March 30, 2024 Subjective 78-year-old female postop day 3 from left knee replacement. She has had some intermittent atrial fibrillation and tachycardia postop but seems to be improving. Asymptomatic. A moderate amount of pain. No pain at all while lying still but pain with therapy. No chest pain or shortness of breath. Physical Exam Physical Exam: Physical nation is a pleasant elderly female. She looks to be pretty comfortable laying in bed this morning. Examination left leg reveals the leg to be well aligned. Dressings clean dry and intact. She can dorsiflex and plantarflex her foot appropriately. She is neurologically intact. Results & Data Vital Signs (Past 12 Hours) Vital Signs Temp Pulse Pulse Resp BP BP Pulse Ox 04/02/24 07:00 36.7 C 97 H 18 149/84 H 95 04/02/24 03:05 36.7 C 89 18 143/83 H 96 04/02/24 00:00 79 04/01/24 23:55 36.7 C 84 20 149/75 H 94 04/01/24 20:00 36.8 C 85 18 144/83 H 95 O2 Del Method 04/02/24 07:00 Room Air 04/02/24 03:05 Room Air 04/02/24 00:00 04/01/24 23:55 Room Air 04/01/24 20:00 Room Air
[2024-04-02] MEDS: METOPROLOL SUCC 25MG EXT REL TAB PO SCH (08:23)
[2024-04-02] MEDS: RIVAROXABAN 20 MG TAB PO SCH (08:25)
[2024-04-02] MEDS: POTASSIUM CHLORIDE CRTAB 20 MEQ TABCR PO STA (09:14)
--- NOTE | 2024-04-02 10:16 | Gastrointestinal Consultation ---
Date of Consultation April 02, 2024 Assessment & Plan (1) Heme positive stool: She is not having a GI bleed as her stools currently are normal in color. There are a lot of false positives with FOBT testing and would not rely on it without visible bleeding. She has a history of bleed from [place] and has been on PPI ever since. She no longer takes NSAIDs. She is scheduled for colonoscopy in a couple of months after she gets over her recent surgery. She had her last one six years ago. Unless things become more urgent I would not pursue any testing now. Will follow. History of Present Illness Reason for Consultation: heme (+) stool Attending Physician: Renny Briggs MD History of Present Illness 78 year old female recently status post knee replacement found to have FOBT positive stools. Patient had bleeding in the summer and had a clean based duodenal ulcer. She has been on PPI ever since. She has followed in the GI office and is scheduled for a colonoscopy in early June. She denies any issues with her stomach. She has no abdominal pains. She says her stools are normal color. She sees no black stools. She sees no red in her stools. She does not take NSAIDs and only takes tylenol for her orthopedic issues. She does have a remote history of colon cancer. Allergies Allergy/AdvReac Type Severity Reaction Status Date / Time Sulfa (Sulfonamide Allergy Intermediate HIVES Verified 03/30/24 05:43 Antibiotics) Home Medications Medication Instructions Recorded Confirmed Type alendronate 70 mg tablet (Fosamax) 70 mg PO ESPINAL 07/10/23 03/30/24 History ergocalciferol (vitamin D2) 50,000 50,000 unit PO WK 07/10/23 03/30/24 History unit tablet nbrovznb-zgo-hadifa 5 mg-zeaxanth 4 cap PO QAM 07/10/23 03/30/24 History 1 mg-bilberry 7.5 mg-herbal capsule (Macular Health Formula) Wheeled Walker #1 ea 08/11/23 01/06/24 Rx pantoprazole 20 mg tablet,delayed 20 mg PO DAILY 01/06/24 03/30/24 History release (Protonix) tramadol 25 mg tablet 25 mg PO Q6H PRN prn 01/06/24 03/30/24 History cefadroxil 500 mg capsule 500 mg PO BID 7 days #14 caps 03/28/24 03/30/24 Rx ondansetron 4 mg disintegrating 4 mg PO Q8 PRN nausea #20 tabs 03/28/24 03/30/24 Rx tablet rivaroxaban 10 mg tablet (Xarelto) 10 mg PO DAILY prevent blood clots 03/28/24 03/30/24 Rx 30 days #30 tabs sennosides 8.6 mg tablet (Senokot) 8.6 mg PO BID prevent constipation 03/28/24 03/30/24 Rx 14 days #28 tabs tramadol 50 mg tablet 50 - 100 mg (1 - 2 x 50 mg) PO Q8H 03/28/24 03/30/24 Rx PRN pain #40 tabs acetaminophen 500 mg tablet 1,000 mg PO [facility] pain 03/30/24 03/30/24 History (Tylenol Extra Strength) duloxetine 30 mg capsule,delayed 30 mg PO HS 03/30/24 03/30/24 History release metoprolol succinate 25 mg 12.5 mg (1/2 x 25 mg) PO QAM #30 03/31/24 Rx tablet,extended release 24 hr tabs rivaroxaban 20 mg tablet (Xarelto) 20 mg PO DAILY #30 tabs 03/31/24 Rx Patient History Medical History History of GI bleed (~08/2023) 08/2023 due to gastric ulcers, occurred one week after hip replacement, no issues currently, not following with gastro currently Osteoarthritis Bilateral knees, left hip History of colorectal cancer (~1997) diagnosed 1997--s/p partial colon resection, chemo/radiation History of COVID-19 (~2020) 2020--mild symptoms, no symptoms now History of postoperative nausea and vomiting Surgical History History of total left hip replacement History of benign breast biopsy History of total hysterectomy with bilateral salpingo-oophorectomy (BSO) History of total right hip replacement History of colonoscopy History of cholecystectomy History of colon resection 1997 History of tooth extraction all teeth removed History of bilateral cataract extraction Family History Other No family history of adverse response to anesthesia Social History Smoking Status: Never smoker Second Hand Exposure: No; Do You Dip or Chew Tobacco: No; Tobacco Cessation Education Requested by Patient: No Hx Alcohol Use: No Hx Substance Use: No Preferred Language: Urdu Communication Ability: Effective Underwriting Service Representative Required: No Beliefs That Will Affect Care: None Current Living Situation: Alone Other Information That Helps Us Care for You: No Feels Safe at Home: Yes Safety Concerns: Feels Safe At This Time Assistive Devices: None Review of Systems Review of Systems: All systems reviewed & are unremarkable except as noted in HPI & below Physical Exam Constitutional: WD/WN, vitals as above Neck: trachea midline, no thyromegaly Respiratory: normal respiratory effort, lungs clear to auscultation Cardiovascular: RRR, no murmur, no edema Gastrointestinal (Abdomen): normal bowel sounds, soft, nontender, no hepatosplenomegaly Results & Data Vital Signs (Past 12 Hours) Vital Signs Temp Pulse Pulse Resp BP BP Pulse Ox 04/02/24 07:00 36.7 C 97 H 18 149/84 H 95 04/02/24 03:05 36.7 C 89 18 143/83 H 96 04/02/24 00:00 79 04/01/24 23:55 36.7 C 84 20 149/75 H 94 O2 Del Method 04/02/24 07:00 Room Air 04/02/24 03:05 Room Air 04/02/24 00:00 04/01/24 23:55 Room Air Laboratory Results 04/02/24 04/01/24 04/01/24 Range/Units 05:49 Unknown 11:24 WBC 8.56 (4.8-10.8) K/ul RBC 3.58 L (4.20-5.40) M/uL Hgb 10.4 L (12.0-16.0) g/dl Hct 30.2 L (37.0-47.0) % MCV 84.4 (80.0-100.0) fL MCH 29.1 (25.0-34.0) pg MCHC 34.4 (32.0-36.0) g/dL RDW Std Deviation 37.2 (36.4-46.3) fL RDW Coeff of Velasquez 12.3 (11.5-14.5) % Plt Count 234 (130-400) K/uL MPV 8.7 L (9.4-12.4) fL Immature Gran % (Auto) % Neut % (Auto) % Lymph % (Auto) % [place] % (Auto) % Eos % (Auto) % Baso % (Auto) % Neut # (Auto) (1.40-6.50) K/uL Lymph # (Auto) (1.20-3.40) K/uL [place] # (Auto) (0.11-0.59) K/uL Eos # (Auto) (0.00-0.50) K/uL Baso # (Auto) (0.00-0.20) K/uL Immature Gran # (Auto) (0.01-0.20) K/uL Sodium 136 (136-145) mmol/L Potassium 3.4 L (3.5-5.1) mmol/L Chloride 98 (98-107) mmol/L Carbon Dioxide 31 (21-32) mmol/L Anion Gap 7 (3-11) BUN 14 (6-23) mg/dl Creatinine 0.41 L (0.6-1.2) mg/dl Est Cr Clr Drug Dosing 94.5 ml/min eGFR 99.40 BUN/Creatinine Ratio 34.1 H (10-20) Glucose 132 H (70-99(Fasting)) mg/dl Calcium 8.7 (8.6-10.3) mg/dl Phosphorus 2.8 (2.5-4.9) mg/dl Magnesium 1.8 (1.7-2.4) mg/dl Urine Color Yellow Urine Appearance Clear (Clear) Urine pH 6.5 (4.5-7.5) Ur Specific [place] 1.010 (1.000-1.030) Urine Protein Negative (Negative) Urine Glucose (UA) Negative (Negative) Urine Ketones Negative (Negative) Urine Blood Negative (Negative) Urine Nitrite Negative (Negative) Urine Bilirubin Negative (Negative) Urine Urobilinogen Negative (Negative) Ur Leukocyte Esterase Negative (Negative) Stool Occult Bld Scrn Positive A (Negative) Stl C. cayetanensis PCR Not Detected (NotDetected) Stool Rotavirus A PCR Not Detected (NotDetected) Stl Adenov F 40/41 PCR Not Detected (NotDetected) Stool Astrovirus (PCR) Not Detected (NotDetected) Stool Campylobacter PCR Not Detected (NotDetected) Stl C. diff Tox B Gene Negative Cdiff Gene (Neg) Stool Cryptosporidium PCR Not Detected (NotDetected) Stl E.coli Shiga Tox PCR Not Detected (NotDetected) Stl Enterotoxigenic E PCR Not Detected (NotDetected) Stool EPEC (PCR) Not Detected (NotDetected) Stool EAEC (PCR) Not Detected (NotDetected) Stl E. histolytica PCR Not Detected (NotDetected) Stool Giardia Lamblia PCR Not Detected (NotDetected) Stool Salmonella PCR Not Detected (NotDetected) Stool Sapovirus (PCR) Not Detected (NotDetected) Stl P. shigelloides PCR Not Detected (NotDetected) Stl Shigella/EIEC PCR Not Detected (NotDetected) St Y.enterocolitica PCR Not Detected (NotDetected) Stool Vibrio (PCR) Not Detected (NotDetected) Stl Vibrio cholerae PCR Not Detected (NotDetected) Stl Norovirus GI/GII PCR Not Detected (NotDetected) 04/01/24 Range/Units 10:13 WBC 11.82 H (4.8-10.8) K/ul RBC 3.60 L (4.20-5.40) M/uL Hgb 10.5 L (12.0-16.0) g/dl Hct 30.1 L (37.0-47.0) % MCV 83.6 (80.0-100.0) fL MCH 29.2 (25.0-34.0) pg MCHC 34.9 (32.0-36.0) g/dL RDW Std Deviation 37.2 (36.4-46.3) fL RDW Coeff of Velasquez 12.3 (11.5-14.5) % Plt Count 210 (130-400) K/uL MPV 8.5 L (9.4-12.4) fL Immature Gran % (Auto) 0.6 % Neut % (Auto) 82.7 % Lymph % (Auto) 7.0 % [place] % (Auto) 9.5 % Eos % (Auto) 0.1 % Baso % (Auto) 0.1 % Neut # (Auto) 9.80 H (1.40-6.50) K/uL Lymph # (Auto) 0.83 L (1.20-3.40) K/uL [place] # (Auto) 1.12 H (0.11-0.59) K/uL Eos # (Auto) 0.01 (0.00-0.50) K/uL Baso # (Auto) 0.01 (0.00-0.20) K/uL Immature Gran # (Auto) 0.07 (0.01-0.20) K/uL Sodium 133 L (136-145) mmol/L Potassium 3.7 (3.5-5.1) mmol/L Chloride 97 L (98-107) mmol/L Carbon Dioxide 31 (21-32) mmol/L Anion Gap 5 (3-11) BUN 12 (6-23) mg/dl Creatinine 0.42 L (0.6-1.2) mg/dl Est Cr Clr Drug Dosing 92.3 ml/min eGFR 98.82 BUN/Creatinine Ratio 28.6 H (10-20) Glucose 178 H (70-99(Fasting)) mg/dl Calcium 8.2 L (8.6-10.3) mg/dl Phosphorus 2.2 L (2.5-4.9) mg/dl Magnesium 1.9 (1.7-2.4) mg/dl Urine Color Urine Appearance (Clear) Urine pH (4.5-7.5) Ur Specific [place] (1.000-1.030) Urine Protein (Negative) Urine Glucose (UA) (Negative) Urine Ketones (Negative) Urine Blood (Negative) Urine Nitrite (Negative) Urine Bilirubin (Negative) Urine Urobilinogen (Negative) Ur Leukocyte Esterase (Negative) Stool Occult Bld Scrn (Negative) Stl C. cayetanensis PCR (NotDetected) Stool Rotavirus A PCR (NotDetected) Stl Adenov F 40/41 PCR (NotDetected) Stool Astrovirus (PCR) (NotDetected) Stool Campylobacter PCR (NotDetected) Stl C. diff Tox B Gene (Neg) Stool Cryptosporidium PCR (NotDetected) Stl E.coli Shiga Tox PCR (NotDetected) Stl Enterotoxigenic E PCR (NotDetected) Stool EPEC (PCR) (NotDetected) Stool EAEC (PCR) (NotDetected) Stl E. histolytica PCR (NotDetected) Stool Giardia Lamblia PCR (NotDetected) Stool Salmonella PCR (NotDetected) Stool Sapovirus (PCR) (NotDetected) Stl P. shigelloides PCR (NotDetected) Stl Shigella/EIEC PCR (NotDetected) St Y.enterocolitica PCR (NotDetected) Stool Vibrio (PCR) (NotDetected) Stl Vibrio cholerae PCR (NotDetected) Stl Norovirus GI/GII PCR (NotDetected) Diagnostic Findings Knee X-Ray 03/30/24 08:39 XR knee LT 1 or 2V routine CLINICAL HISTORY: Surgical Post Op COMPARISON: None FINDINGS: Left knee prosthesis shows no hardware complication. There is expected soft tissue gas. Skin jagjit are present. IMPRESSION: Unremarkable postoperative exam. ACT 112: Negative or not required by law. Electronically signed by: Kemar Hendricks M.D. 03/30/2024 9:05 AM Chest X-Ray 04/01/24 10:15 XR chest 1V portable HISTORY: 78 years-old Female Tachycardia postop acute tachycardia COMPARISON: Chest 07/27/2023 TECHNIQUE: AP view of the chest FINDINGS: Cardiac silhouette is upper limits of normal in size. No pneumothorax, pleural effusion, airspace consolidation or pulmonary edema. Mild right hemidiaphragmatic elevation. The bones of the chest appear grossly intact. IMPRESSION: No acute process. ACT 112: Negative or not required by law. The above report was generated using voice recognition software. It may contain grammatical, syntax or spelling errors. Electronically signed by: Maverick Walsh M.D. 04/01/2024 10:51 AM
--- NOTE | 2024-04-02 11:36 | Electrocardiogram Report ---
Test Reason : Blood Pressure : */* mmHG Vent. Rate : 107 BPM Atrial Rate : 107 BPM P-R Int : 170 ms QRS Dur : 72 ms QT Int : 316 ms P-R-T Axes : 42 46 43 degrees QTcB Int : 421 ms Sinus tachycardia Otherwise normal ECG When compared with ECG of 31-Mar-2024 06:29, No significant change was found Confirmed by Graciela Morales (Jaylan) on 04/02/2024 11:35:55 AM Referred By: Renny Briggs Confirmed By: Graciela Morales
--- NOTE | 2024-04-02 14:02 | Hospitalist Progress Note ---
Date of Service April 02, 2024 Assessment & Plan (1) Sinus tachycardia: (2) Degenerative arthritis of knee, bilateral: Plan This is an 78-year-old female with significant past medical history of prediabetes, recurrent UTI, history of colon cancer status post partial colectom y, osteoporosis and depression who presents for elective L TKA by Dr. Briggs. The hospitalist team was consulted as she had an episode of atrial flutter post- op. Osteoarthritis of L Knee S/P L TKA by Dr. Briggs, POD Day 1 EBL 50ml pain/wound management per ortho activity and therapy as per ortho Xarelto for DVT ppx per ortho, cardiology recommending increasing dose to 20mg if ortho agreeable (see below) Paroxysmal atrial flutter Sinus Tachycardia Post op EKG noting atrial flutter, HR 115 Received a dose of Lopressor 2.5mg Converted to sinus rhythm with noted sinus tachycardia Keep K and Mag > 4.0 and 2.0 respectively Echo with EF 60-65%, moderate LVH, normal wall motion, no significant wall disease Pt w/o prior hx Cardiology consulted, recommended/stated the following: -metoprolol succinate (currently on 25mg daily) -Per Dr Artie Zavala: "...Would recommend full anticoagulation. Okay to increase rivaroxaban to 20 mg/day if not surgically contraindicated. Recommend follow-up with cardiology as outpatient 1 months time. Reassess need for ongoing anticoagulation at that time..." Continue to monitor on telemetry Orthostatic Hypotension Pt with noted episodes of low BP after working with PT on 03/31, 04/01, 04/02 Was also started on Toprol XL per cardiology as noted above BP otherwise on higher side Very gentle fluid hydration with 1bag NSS Repeat orthostat vitals in AM Continue to monitor Possible GI Bleed FOBT positive Hx of GI bleed Was recently started on anticoagulation as noted above H/H stable postop PPI drip initially, transitioned to po ppi GI consulted, appreciate further recs Anemia Hgb currently 10.5, stable Continue to monitor Diarrhea started on 04/01 c diff testing negative stool cx negative Hypophosphatemia replete as needed Prolonged QTC- resolved monitor on ecg avoid qtc prolonging meds repeat ecg QTC has normalized Pre DM a1c 5.9 in november currently not on meds Hx of colon ca s/p colectomy Hx of GIB per pt 2/2 ulcer - on PPI IPMN: follows with GI for routine surveillance Diet: HH DVT ppx: Xarelto per ortho FULL CODE PCP: Dr. Solo Dispo: home once medically stable Thank you for this consultation. We will follow the patient with you during their hospital stay. You can reach a member of the [facility] Hospitalist Team 29/09 via hospitalist role on tiger text. Admission and Anticipated Discharge Date Admission Date: April 02, 2024 Subjective Pt was seen in the AM, daughter at bedside overnight with arrhythmia Still orthostatic when working with PT initially refusing metoprolol, took half today Physical Exam Physical Exam: General: Alert, oriented. No acute distress Psych: Appropriate mood and affect Neuro: No gross deficits HEENT: NC/AT CV: RRR Resp: Breath sounds clear bilaterally, no increased effort of breathing Abdomen: Soft, nontender Extremities: Left leg in post op PATRICE and bandaged Results & Data Results & Data Vital Signs (Past 12 Hours) Vital Signs Temp Pulse Pulse Resp BP BP Pulse Ox 04/02/24 11:19 81/52 L 04/02/24 11:19 106/70 04/02/24 11:18 147/78 H 04/02/24 08:00 95 H 04/02/24 07:00 36.7 C 97 H 18 149/84 H 95 04/02/24 03:05 36.7 C 89 18 143/83 H 96 O2 Del Method 04/02/24 11:19 04/02/24 11:19 04/02/24 11:18 04/02/24 08:00 04/02/24 07:00 Room Air 04/02/24 03:05 Room Air
[2024-04-02] MEDS: PANTOprazole 40 MG TAB PO SCH (21:50)
[2024-04-02] MEDS: POTASSIUM CHLORIDE CRTAB 20 MEQ TABCR PO SCH (21:50)
[2024-04-03 05:30] LABS: Hematocrit (blood only) 28.5 % (37.0-47.0); Hemoglobin 9.6 g/dl (12.0-16.0); Mean Corpuscular Hemoglobin 28.7 pg (25.0-34.0); Mean Corpuscular Hgb Conc 33.7 g/dL (32.0-36.0); Mean Corpuscular Volume 85.3 fL (80.0-100.0); Mean Platelet Volume 8.8 fL (9.4-12.4); Platelet Count 244 K/uL (130-400); RDW Coefficient of Variation 12.3 % (11.5-14.5); RDW Standard Deviation 38.3 fL (36.4-46.3); Red Blood Count 3.34 M/uL (4.20-5.40); White Blood Count 6.73 K/ul (4.8-10.8)
[2024-04-03 05:48] LABS: BUN Creatinine Ratio 35.4 (10-20); Calcium 8.8 mg/dl (8.6-10.3); Creatinine Clr Calc Pharmacy 80.7 ml/min; Magnesium 1.8 mg/dl (1.7-2.4); Phosphorus 3.3 mg/dl (2.5-4.9)
--- NOTE | 2024-04-03 08:12 | Orthopedic Progress Note ---
Date of Service April 03, 2024 Assessment & Plan (1) Status post left knee replacement: Plan: 78-year-old female postop day 4 from a left knee replacement complicated by some paroxysmal atrial fibrillation/tachycardia. She is doing a bit better this morning. The pain seems to be a little bit better controlled. She also has a history of a GI bleed in the past. She is decided she wants to go to rehab. Plan: 1. DVT prophylaxis including thigh-high teds, SCDs, and now she is on Xarelto 20 mg a day. 2. PT/OT. She can weight-bear as tolerated. Left total knee protocol. 3. Pain control doing okay with current pain regimen. 4. History of GI bleed in the past. We had to be careful with all these medicines, stress of surgery and there is new Xarelto. Her hemoglobin hematocrit are currently stable. 5. Medical management as per the medicine service. 6. Disposition. As she is hoping to be discharged to rehab. Were working on that now. Orthopedically okay for discharge anytime. She seems to still a bit tachycardic and likely will need continued medical optimization for at least another day or 2. (2) Paroxysmal atrial flutter: (3) Sinus tachycardia: Admission and Anticipated Discharge Date Admission Date: April 02, 2024 Subjective 78-year-old female postop day #4 from a left knee replacement. She is doing okay. Pain seems to be improved. She continues have some intermittent tachycardia. Fairly minimally symptomatic from this. She is decided she wants to go to rehab. We are still struggling to manage her right tachycardia adequately. Physical Exam Physical Exam: Examination was a pleasant elderly female. She is lying in bed looks pretty comfortable this morning. Examination left leg reveals the dressing in place. Just a little bit of bloody drainage inferiorly. She can dorsiflex and planta rflex her foot appropriately. Has difficulty doing a straight leg raise. Results & Data Vital Signs (Past 12 Hours) Vital Signs Temp Pulse Pulse Resp BP Pulse Ox O2 Del Method 04/03/24 07:40 133 H 04/03/24 07:31 36.5 C 95 H 16 148/84 H 93 Room Air 04/03/24 03:34 36.7 C 90 18 144/84 H 96 Room Air 04/02/24 23:21 37.2 C 90 18 132/78 93 Room Air 04/02/24 22:00 98 H Laboratory Results Hemoglobin is 9.6. Hematocrit is 28.5. Electrolytes are stable
[2024-04-03] MEDS ORDERED: METOPROLOL SUCC 25MG EXT REL TAB PO SCH (09:00)
--- NOTE | 2024-04-03 09:31 | Gastroenterology Progress Note ---
Date of Service April 03, 2024 Assessment & Plan (1) Heme positive stool: Plan: She seems to be doing well. She is not having visible GI bleeding. I do think she needs colonoscopy but I feel as long as this isn't emergent/urgent then she should get over her knee replacement to make it technically easier for her. Admission and Anticipated Discharge Date Admission Date: April 02, 2024 Subjective Patient is feeling well. Having brown bowel movements. H/H down a little Physical Exam Physical Exam: She looks well Constitutional: WD/WN, vitals as above Results & Data Vital Signs (Past 12 Hours) Vital Signs Temp Pulse Pulse Resp BP Pulse Ox O2 Del Method 04/03/24 07:40 133 H 04/03/24 07:31 36.5 C 95 H 16 148/84 H 93 Room Air 04/03/24 03:34 36.7 C 90 18 144/84 H 96 Room Air 04/02/24 23:21 37.2 C 90 18 132/78 93 Room Air 04/02/24 22:00 98 H
[2024-04-03] MEDS: METOPROLOL SUCC 25MG EXT REL TAB PO SCH (09:51)
--- NOTE | 2024-04-03 13:59 | Hospitalist Progress Note ---
Date of Service April 03, 2024 Assessment & Plan (1) Sinus tachycardia: (2) Degenerative arthritis of knee, bilateral: Plan This is an 78-year-old female with significant past medical history of prediabetes, recurrent UTI, history of colon cancer status post partial colectom y, osteoporosis and depression who presents for elective L TKA by Dr. Briggs. The hospitalist team was consulted as she had an episode of atrial flutter post- op. Osteoarthritis of L Knee S/P L TKA by Dr. Briggs, POD Day 1 EBL 50ml pain/wound management per ortho activity and therapy as per ortho Xarelto for DVT ppx per ortho, cardiology recommending increasing dose to 20mg if ortho agreeable (see below) PT/OT- pt would like to go to rehab now Paroxysmal atrial flutter Sinus Tachycardia Post op EKG noting atrial flutter, HR 115 Received a dose of Lopressor 2.5mg Converted to sinus rhythm with noted sinus tachycardia Keep K and Mag > 4.0 and 2.0 respectively Echo with EF 60-65%, moderate LVH, normal wall motion, no significant wall disea se Pt w/o prior hx Cardiology consulted, recommended/stated the following: -metoprolol succinate (currently on 25mg daily- given as 12.5mg BID) -Per Dr Artie Zavala: "...Would recommend full anticoagulation. Okay to increase rivaroxaban to 20 mg/day if not surgically contraindicated. Recommend follow-up with cardiology as outpatient 1 months time. Reassess need for ongoing anticoagulation at that time..." Continue to monitor on telemetry Orthostatic Hypotension Pt with noted episodes of low BP after working with PT on 03/31, 04/01, 04/02 Was also started on Toprol XL per cardiology as noted above BP otherwise on higher side Very gentle fluid hydration with 1bag NSS Repeat orthostat vitals in AM Continue to monitor Possible GI Bleed FOBT positive Hx of GI bleed Was recently started on anticoagulation as noted above H/H stable postop PPI drip initially, transitioned to po ppi GI consulted, appreciate further recs Anemia Hgb currently 10.5, stable Continue to monitor Diarrhea started on 04/01 c diff testing negative stool cx negative Hypophosphatemia replete as needed Prolonged QTC- resolved monitor on ecg avoid qtc prolonging meds repeat ecg QTC has normalized Pre DM a1c 5.9 in november currently not on meds Hx of colon ca s/p colectomy Hx of GIB per pt 2/2 ulcer - on PPI IPMN: follows with GI for routine surveillance Diet: HH DVT ppx: Xarelto per ortho FULL CODE PCP: Dr. Solo Dispo: home once medically stable Thank you for this consultation. We will follow the patient with you during their hospital stay. You can reach a member of the [facility] Hospitalist Team 29/09 via hospitalist role on tiger text. Admission and Anticipated Discharge Date Admission Date: April 02, 2024 Subjective pt was seen sitting up in chair near her bed, reading and working States she is feeling better today No bloody BMs HR still elevated occasionally Review of Systems Review of Systems: All systems reviewed & are unremarkable except as noted in Subjective Physical Exam Physical Exam: General: Alert, oriented. No acute distress Psych: Appropriate mood and affect Neuro: No gross deficits HEENT: NC/AT CV: RRR Resp: Breath sounds clear bilaterally, no increased effort of breathing Abdomen: Soft, nontender Extremities: Left leg in post op PATRICE and bandaged Results & Data Results & Data Vital Signs (Past 12 Hours) Vital Signs Temp Pulse Pulse Resp BP Pulse Ox O2 Del Method 04/03/24 10:51 36.7 C 91 H 16 125/81 98 Room Air 04/03/24 07:40 133 H 04/03/24 07:31 36.5 C 95 H 16 148/84 H 93 Room Air 04/03/24 03:34 36.7 C 90 18 144/84 H 96 Room Air
--- NOTE | 2024-04-04 09:40 | Orthopedic Progress Note ---
Date of Service April 04, 2024 Assessment & Plan (1) Status post left knee replacement: (2) Paroxysmal atrial flutter: (3) Sinus tachycardia: Plan 78-year-old woman POD# 5 s/p left total knee replacement complicated by some paroxysmal atrial fibrillation/tachycardia. However, she is doing well overall, making slight improvements each day. Plan: 1. DVT prophylaxis w/ thigh-high TEDs, SCDs, Xarelto 20 mg daily, per cardiology/medicine. 2. PT/OT as tolerated. WBAT on the LLE. Encourage heel slides, SLR, full knee extension w/ quad sets. 3. Pain control doing well with current pain regimen. 4. Dressing changes daily. 5. Medical management as per the medicine service. 6. Disposition - orthopedically okay for discharge anytime; continues to require medical optimization for intermittent tachycardia; Pending optioning to inpatient rehab facilities. 7. F/u 2 weeks post-op w/ orthopedics (Dr. Briggs's team), or as previously scheduled, for first post-op visit. Admission and Anticipated Discharge Date Admission Date: April 02, 2024 Subjective Patient is POD#5 s/p left total knee arthroplasty by Dr. Briggs on 03/30/2024. Patient states she is having some pain, and she is getting tramadol, but only taking 1 tablet every 6 hours. At rest, her pain is relatively well-controlled, but when she attempts to go to the bathroom or otherwise, she has some pain and stiffness. She is going to see about taking 2 tablets of the tramadol to see if that helps. She is also utilizing Tylenol. Denies CP, SOB, N/V, LLE paresthesia. She and her daughter say that they are awaiting options for inpatient rehab. Physical Exam Physical Exam: GENERAL: AA&Ox3, NAD. Pleasant, affect is calm. Lying in bed and appears comfortable. RESPIRATORY: Normal respiratory effort with no signs of distress. CHEST/AXILLA: Chest movement symmetrical. No deformities noted. CARDIOVASCULAR: No edema noted. SKIN: [place], warm and dry. MS/EXTREMITY: Knee dressing and GLO hose c/d/i; only 1 or 2 minimal spots of dried drainage noted. + ankle dorsi/plantarflexion. NVI distally. Calf soft/NT. PT/DP pulses intact, 2+. Does perform quad set, but unable to perform SLR without assistance. Results & Data Vital Signs (Past 12 Hours) Vital Signs Temp Pulse Pulse Resp BP Pulse Ox O2 Del Method 04/04/24 07:52 82 04/04/24 07:42 36.7 C 72 16 138/76 95 Room Air 04/04/24 03:26 145/75 H 04/04/24 02:52 36.7 C 102 H 16 173/97 H 96 Room Air 04/04/24 00:00 89 04/03/24 22:49 36.8 C 93 H 18 147/78 H 100 Room Air
--- NOTE | 2024-04-04 17:46 | Hospitalist Progress Note ---
Date of Service April 04, 2024 Assessment & Plan (1) Sinus tachycardia: (2) Degenerative arthritis of knee, bilateral: Plan This is an 78-year-old female with significant past medical history of prediabetes, recurrent UTI, history of colon cancer status post partial colectom y, osteoporosis and depression who presents for elective L TKA by Dr. Briggs. The hospitalist team was consulted as she had an episode of atrial flutter post- op. Currently awaiting rehab placement Osteoarthritis of L Knee S/P L TKA by Dr. Briggs, POD Day 1 EBL 50ml pain/wound management per ortho activity and therapy as per ortho Xarelto for DVT ppx per ortho, cardiology recommending increasing dose to 20mg if ortho agreeable (see below) PT/OT- pt would like to go to rehab now Paroxysmal atrial flutter Sinus Tachycardia Post op EKG noting atrial flutter, HR 115 Received a dose of Lopressor 2.5mg Converted to sinus rhythm with noted sinus tachycardia Keep K and Mag > 4.0 and 2.0 respectively Echo with EF 60-65%, moderate LVH, normal wall motion, no significant wall disease Pt w/o prior hx Cardiology consulted, recommended/stated the following: -metoprolol succinate (currently on 25mg daily- given as 12.5mg BID) -Per Dr Artie Zavala: "...Would recommend full anticoagulation. Okay to increase rivaroxaban to 20 mg/day if not surgically contraindicated. Recommend follow-up with cardiology as outpatient 1 months time. Reassess need for ongoing anticoagulation at that time..." Continue to monitor on telemetry Orthostatic Hypotension Pt with noted episodes of low BP after working with PT on 03/31, 04/01, 04/02 Was also started on Toprol XL per cardiology as noted above BP otherwise on higher side Very gentle fluid hydration with 1bag NSS Repeat orthostat vitals in AM Continue to monitor Possible GI Bleed FOBT positive Hx of GI bleed Was recently started on anticoagulation as noted above H/H stable postop PPI drip initially, transitioned to po ppi GI consulted, appreciate further recs Anemia Hgb currently 10.5, stable Continue to monitor Diarrhea started on 04/01 c diff testing negative stool cx negative Hypophosphatemia replete as needed Prolonged QTC- resolved monitor on ecg avoid qtc prolonging meds repeat ecg QTC has normalized Pre DM a1c 5.9 in november currently not on meds Hx of colon ca s/p colectomy Hx of GIB per pt 2/2 ulcer - on PPI IPMN: follows with GI for routine surveillance Diet: HH DVT ppx: Xarelto per ortho FULL CODE PCP: Dr. Solo Dispo: home once medically stable Thank you for this consultation. We will follow the patient with you during their hospital stay. You can reach a member of the [facility] Hospitalist Team 29/09 via hospitalist role on tiger text. Admission and Anticipated Discharge Date Admission Date: April 02, 2024 Subjective pt was seen with daughter at bedside States that she is feeling better per nursing no further episodes of hypotension No bloody BMs Review of Systems Review of Systems: All systems reviewed & are unremarkable except as noted in Subjective Physical Exam Physical Exam: General: Alert, oriented. No acute distress Psych: Appropriate mood and affect Neuro: No gross deficits HEENT: NC/AT CV: RRR Resp: Breath sounds clear bilaterally, no increased effort of breathing Abdomen: Soft, nontender Extremities: Left leg in post op PATRICE and bandaged Results & Data Results & Data Vital Signs (Past 12 Hours) Vital Signs Temp Pulse Pulse Resp BP Pulse Ox O2 Del Method 04/04/24 14:53 36.7 C 84 15 135/78 95 Room Air 04/04/24 11:00 36.8 C 91 H 16 132/81 96 Room Air 04/04/24 07:52 82 04/04/24 07:42 36.7 C 72 16 138/76 95 Room Air
[2024-04-05 06:12] LABS: Hematocrit (blood only) 28.3 % (37.0-47.0); Hemoglobin 9.6 g/dl (12.0-16.0); Mean Corpuscular Hemoglobin 29.1 pg (25.0-34.0); Mean Corpuscular Hgb Conc 33.9 g/dL (32.0-36.0); Mean Corpuscular Volume 85.8 fL (80.0-100.0); Mean Platelet Volume 8.9 fL (9.4-12.4); Platelet Count 344 K/uL (130-400); RDW Coefficient of Variation 12.2 % (11.5-14.5); RDW Standard Deviation 38.5 fL (36.4-46.3)
[2024-04-05 06:55] LABS: BUN Creatinine Ratio 39.6 (10-20); Calcium 9.4 mg/dl (8.6-10.3); Creatinine Clr Calc Pharmacy 80.7 ml/min; Magnesium 1.7 mg/dl (1.7-2.4); Phosphorus 4.5 mg/dl (2.5-4.9); Potassium 4.4 mmol/L (3.5-5.1)
--- NOTE | 2024-04-05 10:58 | Orthopedic Progress Note ---
Date of Service April 05, 2024 Assessment & Plan (1) Status post left knee replacement: Plan: 78-year-old female status post a left knee replacement complicated by atrial flutter. She also has a history of a GI bleed in the past. She is doing quite well. Her heart rates been stabilized. She is on anticoagulation. As she has been evaluated by GI and they are recommending observation for now. She is on Xarelto so to be careful with these to a GI bleed issue. Plan: 1. DVT prophylaxis including teds, SCDs, and now on Xarelto 20 mg a day. 2. PT/OT. Weight-bear as top. Left total knee protocol. 3. Pain control. Doing okay with current pain regimen. 4. Medical management. As per the medicine service. 5. Disposition. She is can be transferred to [facility] today. She will follow back in my office clinic in about 2 weeks. (2) Paroxysmal atrial flutter: (3) Heme positive stool: Admission and Anticipated Discharge Date Admission Date: April 02, 2024 Subjective 78-year-old female status post left total knee replacement complicated by run of atrial flutter. She is doing well. Her knee is sore but seems to be a little bit better each day. That she is feeling well. No chest pain or shortness of breath. Not feeling dizzy or lightheaded. Physical Exam Physical Exam: Physical examination is a pleasant elderly female. She is lying bed looks pretty comfortable. Examination left leg reveals the incision site to be clean dry and intact there is no drainage. Some moderate amount of swelling and bruising. She can dorsiflex and plantarflex her foot appropriately. She is neurologically intact. Results & Data Vital Signs (Past 12 Hours) Vital Signs Temp Pulse Pulse Resp BP Pulse Ox O2 Del Method 04/05/24 08:00 97 H 04/05/24 07:42 36.6 C 93 H 17 129/77 94 Room Air 04/05/24 04:05 36.8 C 106 H 16 127/73 95 Room Air 04/04/24 23:56 36.6 C 86 16 161/76 H 93 Room Air Laboratory Results Hemoglobin is 9.6. Hematocrit is 28.3. Electrolytes are stable.
[2024-04-05 11:25] VITALS: BP 119/74; PULSE 84; RESP 19; TEMP 98.2; O2SAT 93
--- NOTE | 2024-04-05 12:22 | Hospitalist Progress Note ---
Date of Service April 05, 2024 Assessment & Plan (1) Sinus tachycardia: (2) Degenerative arthritis of knee, bilateral: Plan This is an 78-year-old female with significant past medical history of prediabetes, recurrent UTI, history of colon cancer status post partial colectom y, osteoporosis and depression who presents for elective L TKA by Dr. Briggs. The hospitalist team was consulted as she had an episode of atrial flutter post- op Osteoarthritis of L Knee S/P L TKA by Dr. Briggs, POD Day 6 EBL 50ml pain/wound management per ortho activity and therapy as per ortho Xarelto for DVT ppx per ortho, cardiology recommending increasing dose to 20mg if ortho agreeable (see below) PT/OT-Pt discharged to [facility] with orthopedics followup Paroxysmal atrial flutter Sinus Tachycardia Post op EKG noting atrial flutter, HR 115 Received a dose of Lopressor 2.5mg Converted to sinus rhythm with noted sinus tachycardia Keep K and Mag > 4.0 and 2.0 respectively Echo with EF 60-65%, moderate LVH, normal wall motion, no significant wall disease Pt w/o prior hx Cardiology consulted, recommended/stated the following: -metoprolol succinate (currently on 25mg daily- given as 12.5mg BID) -Per Dr Artie Zavala: "...Would recommend full anticoagulation. Okay to increase rivaroxaban to 20 mg/day if not surgically contraindicated. Recommend follow-up with cardiology as outpatient 1 months time. Reassess need for ongoing anticoagulation at that time..." Pt was discharged with metoprolol succinate 12.5mg twice a day with rivaroxaban 20mg daily for anticoagulation and DVT prophylaxis. Orthostatic Hypotension Pt with noted episodes of low BP after working with PT on 03/31, 04/01, 04/02 Was also started on Toprol XL per cardiology as noted above BP otherwise on higher side Very gentle fluid hydration Pt stable on discharge with no further episodes of orthostasis. Possible GI Bleed FOBT positive Hx of GI bleed Was recently started on anticoagulation as noted above H/H stable postop PPI drip initially, transitioned to po ppi GI consulted, recommended/stated the following per Dr Ceballos: "She seems to be doing well. She is not having visible GI bleeding. I do think she needs colonoscopy but I feel as long as this isn't emergent/urgent then she should get over her knee replacement to make it technically easier for her." Colonoscopy as an outpt recommended. PCP and GI follow up after discharge, pantoprazole increased to 40mg BID on discharge. Anemia Hgb stable at 9.6 on discharge PCP follow up for continued monitoring Diarrhea started on 04/01 c diff testing negative stool cx negative Improved on discharge Hypophosphatemia repleted as needed Prolonged QTC- resolved monitor on ecg avoid qtc prolonging meds repeat ecg QTC has normalized Pre DM a1c 5.9 in november currently not on meds Hx of colon ca s/p colectomy Hx of GIB per pt 2/2 ulcer - on PPI IPMN: follows with GI for routine surveillance Diet: HH DVT ppx: Xarelto per ortho FULL CODE PCP: Dr. Solo Dispo: home once medically stable Thank you for this consultation. We will follow the patient with you during their hospital stay. You can reach a member of the [facility] Hospitalist Team 29/09 via hospitalist role on tiger text. Admission and Anticipated Discharge Date Admission Date: April 02, 2024 Subjective pt was seen in the AM laying in bed States that she will be going to [facility] Denies any dizziness, SOB, chest pain Review of Systems Review of Systems: All systems reviewed & are unremarkable except as noted in Subjective Physical Exam Physical Exam: General: Alert, oriented. No acute distress Psych: Appropriate mood and affect Neuro: difficulty with moving left leg HEENT: NC/AT CV: RRR Resp: Breath sounds clear bilaterally, no increased effort of breathing Abdomen: Soft, nontender Extremities: Left leg in post op PATRICE and bandaged Results & Data Results & Data Vital Signs (Past 12 Hours) Vital Signs Temp Pulse Pulse Resp BP Pulse Ox O2 Del Method 04/05/24 11:24 36.8 C 84 19 119/74 93 Room Air 04/05/24 08:00 97 H 04/05/24 07:42 36.6 C 93 H 17 129/77 94 Room Air 04/05/24 04:05 36.8 C 106 H 16 127/73 95 Room Air Diagnostic Findings Knee X-Ray 03/30/24 08:39 XR knee LT 1 or 2V routine CLINICAL HISTORY: Surgical Post Op COMPARISON: None FINDINGS: Left knee prosthesis shows no hardware complication. There is expected soft tissue gas. Skin jagjit are present. IMPRESSION: Unremarkable postoperative exam. ACT 112: Negative or not required by law. Electronically signed by: Kemar Hendricks M.D. 03/30/2024 9:05 AM Chest X-Ray 04/01/24 10:15 XR chest 1V portable HISTORY: 78 years-old Female Tachycardia postop acute tachycardia COMPARISON: Chest 07/27/2023 TECHNIQUE: AP view of the chest FINDINGS: Cardiac silhouette is upper limits of normal in size. No pneumothorax, pleural effusion, airspace consolidation or pulmonary edema. Mild right hemidiaphragmatic elevation. The bones of the chest appear grossly intact. IMPRESSION: No acute process. ACT 112: Negative or not required by law. The above report was generated using voice recognition software. It may contain grammatical, syntax or spelling errors. Electronically signed by: Maverick Walsh M.D. 04/01/2024 10:51 AM
--- NOTE | 2024-04-06 13:43 | Discharge Summary ---
Date of Service April 06, 2024 Admission HPI (Per Admitting) . The patient is an 78-year-old female who is well-known to me from previous hip replacements. She had a right hip replaced about 7 years ago in the left and about 6 and half months ago. She done well from this for the most part but she did have a GI bleed after her last surgery. She is now recovered from this. She continues to be bothered by knee pain and discomfort. Both knees hurt but the left knee is worse than the right. She been through conservative treatment which would become less successful. It is affecting her quality life. She is want to proceed with left knee replacement. Admission Exam (Per Admitting) . Physical examination reveals a pleasant frail elderly female. Looks be in pretty good health. Examination of both knees reveal patient ambulates independently. She got varus alignment to both knees. Got bony hypertrophy medially. Range of motion of the left is about 10-1 20 and the right is 5-1 25. No particular pain with hip motion on either side. She is neurologically intact. No instability. Principal Diagnosis Same as "Discharge Diagnosis" noted below under Discharge Instructions. Discharge Data Consultations 03/30/24 11:23 Consult Hospitalist Routine 03/31/24 09:40 Consult Cardiology Routine 04/01/24 17:24 Consult Gastroenterology Routine Procedures Performed Operation Date: 03/30/24 07:00 Actual Procedures p Left Total Knee Arthroplasty(Left) - Renny Briggs MD Ordered Studies 03/30/24 05:00 US - OR guided needle placemen Routine Hospital Course (1) Status post left knee replacement: This is a 78 year old patient admitted on 03/30/24 and underwent total knee arthroplasty. She tolerated the procedure well and there were no complications. Transferred to the PACU post op and developed atrial flutter. She was transferred to telemetry unit for further observation and care. She was given ancef for antibiotic prophylaxis. She was also given GLO stockings, SCDs, and xarelto for DVT prophylaxis. Cardiology was consulted and recommended continuing xarelto 20mg daily as well as metoprolol. Hemoglobin, hematocrit, and vital signs were monitored during her hospital stay and remained stable. Did not require any blood transfusions. She did have a h/o GI bleed and had heme posit brenda stool. Gastroenterology service was consulted, did not feel that she had an active GI bleed and recommended colonoscopy to be done at a later time after her knee recovery. By post op day #6 the patient was tolerating a regular diet, pain was reasonably controlled with oral pain medicine, and she was participating in physical therapy. On post op day #6 the patient was discharged home to a [facility] facility. She was given printed discharge instructions including prescriptions for extra strength tylenol, zofran, xarelto, senokot, and tramadol. In addition she was given metoprolol 12.5mg BID and protonix was increased. She was instructed to follow up with her primary care provider, cardiology in 1 month, and with gastroenterology. Continue physical therapy, weight bearing as tolera glo. Continue GLO stockings. Follow up approximately 2 weeks post op or sooner if there are problems or concerns. PG Care Time/CCT Total # of Minutes Spent Total Time Spent with Patient: : Discharge Plan Discharge Items Patient Disposition: Transfer Care Home Fac Reason For Visit: Osteoarthritis Knee Left Discharge Diagnosis: Left Knee Replacement Activity: Per Instructions section Weightbearing: Full weightbearing Non-emergency contact: Surgeon Call non-emergency contact if: you have any medication questions Follow-up/Referrals: Aurelia Solo, [Primary Care Provider] - 04/08/24 9:00 am (Date & Time 04/08/2024 9:00 AM Provider: Priscila Blanco MD [facility] ) Diet: Regular Addtl Attending Provider Instructions: ACTIVITY RECOMMENDATIONS: Diet: * You may resume previous diet. Physical Therapy: * You will go to physical therapy three times each week for four to six weeks after your surgery in order to regain your knee range of motion and to retrain your knee to work properly. * It is just as important to make sure you are getting your knee perfectly straight as it is to regain your knee bend. * Taking a pain pill an hour before therapy can help you have a more productive and comfortable therapy session. Home Exercise: * You were shown a series of exercises (heel props, heel slides, etc.) in the hospital. Do these exercises three to four times each day including the exercises you were shown in physical therapy. Walking: * Get up and walk several times each day. For the first four weeks, try not to stand or walk for more than one hour at a time. If you do stand or walk for more than one hour, you will not hurt anything, but your knee and leg will likely swell. * As you feel comfortable, you may change from the walker or crutches to a cane and then to independent walking. MEDICATIONS: New Medicine: * You will likely be taking one or more of these medications: 1. Tramadol - A quick and shorter-acting pain medication. Take one to two tablets every six hours to lessen your pain. 2. Xarelto - Thins your blood to lessen the chance of forming a blood clot. * The most common side effects of pain medicine and iron are nausea and constipation. If nausea or constipation is too much of a problem or if you have any questions about your new medicines or doses, call [facility] at . We will try to help you manage these issues. "VERY IMPORTANT TO READ AND REVIEW" Pain: * The immediate post-operative period after knee replacement surgery is often quite painful. * You are given a prescription for pain medicine. You should take it, as directed, when you need it, especially before physical therapy and before going to bed. Pain that interferes with sleep is very common and can last several months. * You will likely need pain medicine for the first four to six weeks. It will not stop all of the pain. The pain will lessen and as you feel better, you may change to milder pain medicine such as Tylenol. * The most common side effects of pain medicine are nausea and constipation, so don't take more than you need. SPECIAL CARE INSTRUCTIONS: TEDs/Elastic Stockings: * The white elastic stockings help limit swelling and prevent blood clots from forming in your legs. The more you wear them, the more they work. * Wear them for six weeks after knee replacement surgery and four weeks after partial knee replacement. Incision Site Care: * Remove dressing postoperative day 2 and then shower. Keep direct shower pressure off the incision site. * After showering, cover jagjit with dry gauze and change daily or more frequently if the dressing is getting saturated with drainage. * Use the GLO stockings to hold dressing in place. DO NOT apply tape on the skin. * May completely stop using bandage if wound is dry and no drainage * [place] are removed between 2 and 3 weeks post-op. If your follow-up appointment is made before 2 weeks, please have your appointment re- scheduled. It is too early to remove the jagjit. Prevention of Infection: * Take antibiotics one hour before any dental cleaning, dental work, urological procedure, gastrointestinal procedure or any invasive surgery in order to prevent your new joint from getting infected. * You may get the antibiotics from the doctor performing the procedure or you may call our office at [phone] before and we will call in a prescription to the pharmacy of your choice. Things to Watch For: * Drainage from the incision site that occurs more than one week after your surgery. * Severely increased knee/leg pain or swelling. * Increased redness at the incision site. * Fever above 102 degrees Fahrenheit. * Unusual chest pain or shortness of breath. * Unusual pain or burning with urination. Call [facility] at [phone] with any of the above problems or if you have any questions about your medicines or recovery. FOLLOW UP VISIT: Make an appointment to see your doctor for approximately two weeks after surgery for a progress check and staple removal by calling the office at [phone]. Addtl Flight Deck Officer Provider Instructions: Please continue with the metoprolol succinate 12.5mg twice a day to help with your heart rate as well as the Xarelto 20mg daily to help prevent both blood clots and a possible stroke due to the episodes of an irregular heartbeat. We also increased the dose of your pantoprazole to 40mg twice a day while on the xarelto. Please keep close follow up with your primary care provider and Cardiology after discharge. Please do not hesitate to come back to the emergency room if your symptoms worsen or return. It was a pleasure taking care of you while you were here. Pending Studies at Discharge: No Stand-Alone Forms: [facility], Smoking Cessation Skilled Items Patient informed of condition?: Yes DNR: No Discharge Level of Care: Skilled Communicable Disease: No Discharge Prognosis: Improving Lines: None Urinary Catheter: No Medications and DC Order Prescriptions: New Xarelto 20 mg tablet 20 mg PO DAILY Qty: 30 0RF Rx Instructions: must administer with evening meal metoprolol succinate 25 mg Tablet Extended Release 24 Hr 12.5 mg PO BID Qty: 15 0RF Continued (DME) Wheeled Walker Misc See Rx Instructions .MEDSUPPLY Qty: 1 0RF Rx Instructions: As directed tramadol 50 mg tablet 50 - 100 mg PO Q8H PRN (Reason: pain) Qty: 40 0RF Patient Comments: post op Rx Instructions: Take as needed for pain. Do not take more than 6 tablets per day ondansetron 4 mg tablet,disintegrating 4 mg PO Q8 PRN (Reason: nausea) Qty: 20 1RF Patient Comments: post op Rx Instructions: Take as needed for nausea sennosides [Senokot] 8.6 mg tablet 8.6 mg PO BID 14 Days Qty: 28 0RF Patient Comments: post op Rx Instructions: Take two times a day to prevent/treat constipation tramadol 25 mg tablet 25 mg PO Q6H PRN (Reason: prn) alendronate [Fosamax] 70 mg Tablet 70 mg PO ESPINAL Patient Comments: takes on sundays ergocalciferol (vitamin D2) 50,000 unit Tablet 50,000 unit PO WK Patient Comments: takes Macular Health Formula 5-1-7.5 mg Capsule 4 cap PO QAM duloxetine 30 mg capsule,delayed release(DR/EC) 30 mg PO HS acetaminophen [Tylenol Extra Strength] 500 mg tablet 1,000 mg PO AMHS Patient Comments: post op Rx Instructions: Take 3 times per day to lessen pain Changed pantoprazole [Protonix] 20 mg tablet,delayed release (DR/EC) 20 mg PO BID Qty: 60 0RF Discontinued Xarelto 10 mg tablet 10 mg PO DAILY 30 Days Qty: 30 0RF Patient Comments: post op Rx Instructions: Take 1 tablet daily for 30 days to prevent blood clots Discharge Orders: Discharge Order (Routine); Ordered 04/01/24 Ordered By: Renny Briggs Admission Data Admit Date/Time: 04/02/24 12:59 Attending Provider: Renny Briggs Admit Provider: Renny Briggs Primary Care Provider: Aurelia Solo Other Providers: Huang Ceballos Jr; [facility]; Federica Devlin; Wanda Kaye; Artie Zavala Other Interventions: Discharge Summary Assessment (RN) Last Done: 04/05/24 13:35
== END 2024-04-05 14:24 | DRG 470 ==
LOC: ASU 05:18 → PACUINP 05:18 → 4W 16:20
DX: E83.39 Other disorders of phosphorus metabolism; K92.1 Melena; Z90.49 Acquired absence of other specified parts of digestive tract; R19.7 Diarrhea, unspecified; Z79.899 Other long term (current) drug therapy; F32.A Depression, unspecified; I48.92 Unspecified atrial flutter; Z87.19 Personal history of other diseases of the digestive system; R73.03 Prediabetes; R94.31 Abnormal electrocardiogram [ECG] [EKG]; Z96.643 Presence of artificial hip joint, bilateral; D64.9 Anemia, unspecified; I95.1 Orthostatic hypotension; Z85.038 Personal history of other malignant neoplasm of large intestine; Z88.2 Allergy status to sulfonamides; M17.0 Bilateral primary osteoarthritis of knee; R00.0 Tachycardia, unspecified; M81.0 Age-related osteoporosis without current pathological fracture